=== PATIENT | male | born 1975 | race African-American/Black ===

== ENCOUNTER 2017-01-12 04:46 | Emergency (ER) | payer OTHER ==
[~2017-01-12] VITALS: Ht 175.3 cm; Wt 76.2 kg
[~2017-01-12 04:46] MED LIST: AMIKACIN S500 MG/2 M IJ; BACLOFEN10 MG ORAL; CIPRO500 MG PO; CIPROFLOXACIN500 M2 ORAL; COLACE100 MG ORAL; COUMADIN1 MG ORAL; DIFLUCAN100 MG ORAL; GABAPENTIN100 MG ORAL; GABAPENTIN300 MG ORAL; HYDROCODON-ACE1 EA15 ORAL; HYDROCODON-ACE1 EAC1 PO; HYTRIN1 MG PO; HYTRIN10 MG PO; KEFLEX500 MG ORAL; LEVAQUIN500 MG ORAL; LEVOFLOXACIN750 MG ORAL; LIORESAL20 MG ORAL; MACROBID100 MG ORAL; MACRODANTIN100 MG ORAL; METOCLOPRAMIDE H5 M1 ORAL; MIRALAX17 GM ORAL; MUCINEX600 MG PO; NEURONTIN600 MG ORAL; NITROFURANTOIN100 M2 ORAL; NORCO 5-325 TA1 EACH ORAL; REGLAN10 MG PO; SENNO8.6 MG ORAL; TERAZOSIN HCL1 MG ORAL; TIZANIDINE HCL4 MG ORAL; TIZANIDINE HCL4 MG PO; TRAMADOL HCL50 MG ORAL; VENLAFAXINE HCL25 MG ORAL; ZOFRAN4 M1 ORAL; ZOFRAN4 M3 ORAL; ZOFRAN4 MG ORAL
[2017-01-12 05:06] VITALS: BP 114/73
[2017-01-12] MEDS ORDERED: HYDROmorphone 1mg/ml Carpuject IVP ONE (05:15)
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
[2017-01-12 06:02] LABS: BASOPHILS % (AUTO) 0.6 % (0.0-2.0); EOSINOPHILS % (AUTO) 1.4 % (0.0-3.0); LYMPHOCYTES % (AUTO) 16.2 % (20.0-45.0); MEAN CORPUSCULAR HEMOGLOBIN 26.6 PG (27.0-31.0); MEAN CORPUSCULAR HGB CONC 31.6 G/DL (32.0-36.0); MEAN CORPUSCULAR VOLUME 84 FL (80-99); MEAN PLATELET VOLUME 10.4 FL (6.5-10.1); MONOCYTES % (AUTO) 5.4 % (1.0-10.0); NEUTROPHILS % (AUTO) 76.4 % (45.0-75.0); PLATELET COUNT 170 K/UL (150-450); RED BLOOD COUNT 5.27 M/UL (4.70-6.10); RED CELL DISTRIBUTION WIDTH 12.5 % (11.6-14.8); WHITE BLOOD COUNT 10.4 K/UL (4.8-10.8)
[2017-01-12 06:17] LABS: APPEARANCE,URINE CLEAR; KETONES,URINE NEGATIVE (NEGATIVE); LEUKOCYTE ESTERASE ,URINE 3+ (NEGATIVE); NITRITE,URINE POSITIVE (NEGATIVE); PH,URINE 8 (4.5-8.0); PROTEIN,URINE NEGATIVE (NEGATIVE); UROBILINOGEN,URINE 1 MG/DL (0.0-1.0)
[2017-01-12 06:28] LABS: ANION GAP 15 (5-15); CALCIUM 9.2 mg/dL (8.6-10.2); CARBON DIOXIDE 27 mEQ/L (20-30); CHLORIDE 96 mEQ/L (98-107); CREATININE 0.6 mg/dL (0.7-1.2); GLOMERULAR FILTRATION RATE > 60 mL/min (>60); HEMOLYSIS 7; POTASSIUM 4.1 mEQ/L (3.4-4.9); SODIUM 138 mEQ/L (135-145)
[2017-01-12] MEDS ORDERED: Piperacillin/Tazobactam 3.375 GM in NS 110 ML IVPB ONE (06:30)
[2017-01-12] MEDS ORDERED: LEVAQUIN500 MG ORAL (06:30)
[2017-01-12] MEDS ORDERED: Zosyn 3.375gm inj ONE (06:32)
[2017-01-12 06:53] LABS: BACTERIA,URINE FEW /HPF; SQUAMOUS EPITHELIAL CELL,UR OCCASIONAL /LPF (NONE/OCC); WBC,URINE 15-20 /HPF (0 - 0)
[2017-01-12 07:11] VITALS: BP 96/59
[2017-01-12 07:43] VITALS: BP 141/80
--- NOTE | 2017-01-17 21:50 | Diagnostic Imaging Report ---
APPROVED REPORT CPT Code: 34505 Present Symptoms Lower Extremity Pain: Right RIGHT LEG: Venous imaging reveals a patent deep venous system. There is no evidence of thrombus within the femoral, popliteal or tibial segments. Doppler indicates normal spontaneous flow within these segments.
== END 2017-01-12 07:46 | disposition home or self-care (01) ==
LOC: EDBD 04:46 → EDUNIT# 04:46 → EMR 06:30
DX: N39.0 Urinary tract infection, site not specified (principal); M79.604 Pain in right leg; G82.50 Quadriplegia, unspecified; Z86.718 Personal history of other venous thrombosis and embolism
CPT/HCPCS: 36415; 80048; 81001; 85025; 87086; 87181; 93971; 96374; 96375; 99284; J1170; J2543

== ENCOUNTER 2017-02-05 06:48 | Emergency (ER) | payer OTHER ==
[~2017-02-05] VITALS: Ht 177.8 cm; Wt 72.6 kg
[2017-02-05 07:08] VITALS: BP 95/63
[2017-02-05 07:50] VITALS: BP 109/64
[2017-02-05 08:12] LABS: APPEARANCE,URINE CLEAR; KETONES,URINE 3+ (NEGATIVE); LEUKOCYTE ESTERASE ,URINE 3+ (NEGATIVE); NITRITE,URINE POSITIVE (NEGATIVE); PH,URINE 7 (4.5-8.0); PROTEIN,URINE NEGATIVE (NEGATIVE); UROBILINOGEN,URINE 4 MG/DL (0.0-1.0)
[2017-02-05 08:26] LABS: BACTERIA,URINE MODERATE /HPF; RBC,URINE 0-2 /HPF (0 - 0); SQUAMOUS EPITHELIAL CELL,UR OCCASIONAL /LPF (NONE/OCC)
[2017-02-05] MEDS ORDERED: CIPROFLOXACIN500 M2 ORAL (08:35)
--- NOTE | 2017-02-05 08:40 | Emergency Room Report ---
History of Present Illness General Chief Complaint: General Complaint Source: Patient Present Illness HPI 41 YOM known paraplegia from [facility] presents with dysuria since yesterday. Has condom cath in place, no indwelling Raymundo. Per EMR, frequent visits here for recurrent UTI. Last was in January. C/o mild suprapubic discomfort. Denies nausea/vomiting, diarrhea, fever/chills. States has schedueld followup upcoming for "specialist" to "look at my bladder." Allergies: Coded Allergies: No Known Allergies (Unverified , 05/05/13) Patient History Past Medical History: other - Recurrent UTI Past Surgical History: other - Paraplegia Pertinent Family History: none Social History: Denies: alcohol use, drug use, smoking Immunizations: UTD Reviewed Nursing Documentation: PMH: Agreed, PSxH: Agreed Nursing Documentation-PMH Hx Cardiac Problems: No Hx Hypertension: No Hx Pacemaker: No Hx Asthma: No Hx COPD: No Hx Diabetes: No Hx Cancer: No Hx Gastrointestinal Problems: No Hx Dialysis: No History Of Psychiatric Problem: No Hx Cerebrovascular Accident: No Hx Seizures: No Hx Paralysis: Yes - quadriplegic Hx Peripheral Neuropathy: Yes Review of Systems All Other Systems: negative except mentioned in HPI Physical Exam Vital Signs Date Time Temp Pulse Resp B/P Pulse Ox O2 Delivery O2 Flow Rate FiO2 02/05/17 06:49 98.1 98 16 102/60 99 Room Air Sp02 EP Interpretation: reviewed, normal General Appearance: normal inspection, well appearing, no apparent distress, alert, GCS 15, non-toxic Head: normocephalic, atraumatic Eyes: bilateral eye EOMI, bilateral eye PERRL ENT: normal ENT inspection, hearing grossly normal, normal voice Neck: normal inspection, full range of motion, supple, no bony tend Respiratory: normal inspection, lungs clear, normal breath sounds, no respiratory distress, no retraction, no wheezing Cardiovascular #1: regular rate, rhythm, no edema Gastrointestinal: normal inspection, normal bowel sounds, soft, no guarding, no hernia, other - Mild suprapubic ttp Genitourinary: no CVA tenderness Musculoskeletal: normal inspection, back normal, normal range of motion, Felix' s Sign negative Neurologic: normal inspection, alert, oriented x3, 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 Initial dose Cipro given here PO with Rx for 13 more tablets VSS. Afebrile. No signs/symptoms of systemic infection requiring additional laboratory/imaging workup or admission at this time DC back to [facility] Last Vital Signs Date Time Temp Pulse Resp B/P Pulse Ox O2 Delivery O2 Flow Rate FiO2 02/05/17 07:50 97.0 55 21 109/64 97 Room Air Status: improved Disposition: XFER [facility] Condition: Improved Scripts Ciprofloxacin Hcl* (CIPROFLOXACIN HCL*) 500 Mg Tablet 500 MG ORAL Q12H for 7 Days, #13 TAB 0 Refills Prov: RUBEN CARCAMO M.D. 02/05/17 Referrals: NON PHYSICIAN (PCP) Patient Instructions: Dysuria Additional Instructions: - Take all the Antibiotics, twice daily for 7 days until finished (Ciprofloxacin ) - First dose given in ER at 830am. Take next at 830pm and then twice daily. RUBEN CARCAMO M.D. Feb 05, 2017 08:40
[2017-02-05] MEDS ORDERED: Ciprofloxacin 500mg tab ORAL ONE (08:45)
[2017-02-05 10:34] VITALS: BP 108/68
== END 2017-02-05 11:30 ==
LOC: EDBD 06:48 → EMR 07:20
DX: N30.01 Acute cystitis with hematuria (principal); G82.50 Quadriplegia, unspecified; G62.9 Polyneuropathy, unspecified
CPT/HCPCS: 81003; 87086; 87181; 96372; 99283; J2405

== ENCOUNTER 2017-09-07 18:41 | Inpatient (IN) | payer OTHER ==
[~2017-09-07] VITALS: Ht 177.8 cm; Wt 72.6 kg
[2017-09-07] MEDS ORDERED: Acetaminophen 500mg (ES) tab ORAL ONE (19:00)
[2017-09-07 19:30] LABS: LYMPHOCYTES % (AUTO) 19.5 % (20.0-45.0); MEAN CORPUSCULAR HEMOGLOBIN 26.4 PG (27.0-31.0); MEAN CORPUSCULAR HGB CONC 29.9 G/DL (32.0-36.0); MEAN CORPUSCULAR VOLUME 88 FL (80-99); MEAN PLATELET VOLUME 9.2 FL (6.5-10.1); MONOCYTES % (AUTO) 5.8 % (1.0-10.0); NEUTROPHILS % (AUTO) 72.7 % (45.0-75.0); PLATELET COUNT 174 K/UL (150-450); RED BLOOD COUNT 5.71 M/UL (4.70-6.10); RED CELL DISTRIBUTION WIDTH 12.8 % (11.6-14.8); WHITE BLOOD COUNT 7.4 K/UL (4.8-10.8)
[2017-09-07 19:42] LABS: APPEARANCE,URINE CLEAR; KETONES,URINE 2+ (NEGATIVE); LEUKOCYTE ESTERASE ,URINE 2+ (NEGATIVE); NITRITE,URINE POSITIVE (NEGATIVE); PH,URINE 7 (4.5-8.0); PROTEIN,URINE NEGATIVE (NEGATIVE); UROBILINOGEN,URINE 1 MG/DL (0.0-1.0)
[2017-09-07 20:00] LABS: PROTHROMBIN TIME 10.8 SEC (9.30-11.50)
[2017-09-07 20:07] LABS: REFLEX LACTIC ACID YES OR NO YES
[2017-09-07 20:08] LABS: RBC,URINE 0-2 /HPF (0 - 0); SQUAMOUS EPITHELIAL CELL,UR OCCASIONAL /LPF (NONE/OCC); WBC,URINE 0-2 /HPF (0 - 0)
[2017-09-07 20:09] LABS: BACTERIA,URINE OCCASIONAL /HPF
[2017-09-07 20:14] LABS: ALANINE AMINOTRANSFERASE 14 U/L (12-78); ANION GAP 13 (5-15); ASPARTATE AMINO TRANSFERASE 13 U/L (15-37); CALCIUM 9.5 MG/DL (8.5-10.1); CARBON DIOXIDE 28 MMOL/L (21-32); CHLORIDE 101 MMOL/L (98-107); CREATININE 0.7 MG/DL (0.55-1.00); GLOMERULAR FILTRATION RATE > 60 mL/min (>60); POTASSIUM 3.6 MMOL/L (3.5-5.1); SODIUM 138 MMOL/L (136-145); TOTAL PROTEIN 8.4 G/DL (6.4-8.2)
[2017-09-07] MEDS ORDERED: Cefepime 1gm vial ONE (20:43)
[2017-09-07] MEDS ORDERED: Morphine Sulfate 2mg/ml Inj IVP ONE (20:45)
[2017-09-07] MEDS ORDERED: Cefepime HCl 1 GM in D5W 55 ML IVPB ONE (20:45)
[2017-09-07 21:39] VITALS: BP 91/58
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
[2017-09-07] MEDS ORDERED: Norco 10mg/325mg tab ORAL PRN (22:15)
[2017-09-07 22:42] VITALS: BP 105/65
[2017-09-08] MEDS: Morphine Sulfate 2mg/ml Inj IVP PRN ×4 (00:01→21:26)
[2017-09-08 04:00] VITALS: BP 122/78
[2017-09-08 06:47] LABS: BASOPHILS % (AUTO) 0.6 % (0.0-2.0); EOSINOPHILS % (AUTO) 1.6 % (0.0-3.0); LYMPHOCYTES % (AUTO) 36.3 % (20.0-45.0); MEAN CORPUSCULAR HEMOGLOBIN 29.7 PG (27.0-31.0); MEAN CORPUSCULAR HGB CONC 33.9 G/DL (32.0-36.0); MEAN CORPUSCULAR VOLUME 88 FL (80-99); MEAN PLATELET VOLUME 9.8 FL (6.5-10.1); MONOCYTES % (AUTO) 8.6 % (1.0-10.0); NEUTROPHILS % (AUTO) 52.9 % (45.0-75.0); PLATELET COUNT 145 K/UL (150-450); RED BLOOD COUNT 4.29 M/UL (4.70-6.10); RED CELL DISTRIBUTION WIDTH 12.7 % (11.6-14.8)
[2017-09-08 07:05] LABS: ANION GAP 9 (5-15); CALCIUM 7.9 MG/DL (8.5-10.1); CARBON DIOXIDE 24 MMOL/L (21-32); CHLORIDE 105 MMOL/L (98-107); CREATININE 0.5 MG/DL (0.55-1.30); GLOMERULAR FILTRATION RATE > 60 mL/min (>60); POTASSIUM 3.5 MMOL/L (3.5-5.1); SODIUM 138 MMOL/L (136-145)
[2017-09-08 08:00] VITALS: BP 122/76
[2017-09-08] MEDS: Heparin 5000 units/ml inj SUBQ SCH ×2 (08:25→20:49)
[2017-09-08] MEDS: Venlafaxine 25mg tab ORAL SCH ×3 (08:31→18:08)
--- NOTE | 2017-09-08 10:24 | Diagnostic Imaging Report ---
Indication: Dyspnea Comparison: 08/11/15 A single view chest radiograph was obtained. Findings: No definite infiltrate identified. Mild cardiomegaly is present. The bones are osteopenic. No pleural effusions are seen. Impression: No acute disease
--- NOTE | 2017-09-08 10:24 | Diagnostic Imaging Report ---
Indication: Abdominal pain Comparison: 08/11/15 Single view of the abdomen obtained Findings: Bowel gas pattern is nonspecific. No mass, ectopic calcifications, or abnormal gas collections are identified. The bones are unremarkable. There is an IVC filter present. There is a low pelvic stent. Impression: No acute findings. No significant change.
[2017-09-08 12:00] VITALS: BP 122/69
[2017-09-08 16:15] VITALS: BP 134/73
--- NOTE | 2017-09-08 16:52 | Cardiac Electrophysiology PN ---
Subjective Subjective [id number] Objective Last 24 Hour Vital Signs Date Time Temp Pulse Resp B/P (MAP) Pulse Ox O2 Delivery O2 Flow Rate FiO2 09/08/17 12:00 97.9 64 18 122/69 97 Room Air 09/08/17 08:00 97.5 63 18 122/76 Room Air 09/08/17 04:00 97.3 76 21 122/78 100 Room Air 09/07/17 22:43 97.9 53 16 91/58 97 Room Air 09/07/17 22:42 97.9 60 18 105/65 97 Room Air 09/07/17 22:14 97.9 09/07/17 21:40 53 16 Room Air 09/07/17 21:39 97.9 53 16 91/58 97 Room Air 09/07/17 21:11 97.9 09/07/17 18:44 97.9 74 20 143/70 97 Room Air Intake and Output 09/08/17 09/09/17 19:00 07:00 Intake Total 540 ml Balance 540 ml Intake Oral 240 ml IV Total 300 ml Laboratory Tests Test 09/07/17 19:00 09/07/17 19:05 09/07/17 21:56 09/08/17 04:35 Urine Color Yellow Urine Appearance Clear Urine pH 7 (4.5-8.0) Urine Specific [place] 1.005 (1.005-1.035) Urine Protein Negative (NEGATIVE) Urine Glucose (UA) Negative (NEGATIVE) Urine Ketones 2+ (NEGATIVE) H Urine Occult Blood Negative (NEGATIVE) Urine Nitrite Positive (NEGATIVE) H Urine Bilirubin Negative (NEGATIVE) Urine Urobilinogen 1 MG/DL (0.0-1.0) H Urine Leukocyte Esterase 2+ (NEGATIVE) H Urine RBC 0-2 /HPF (0 - 0) H Urine WBC 0-2 /HPF (0 - 0) Urine Squamous Epithelial Cells Occasional /LPF Urine Bacteria Occasional /HPF (NONE) Urine Opiates Screen Negative (NEGATIVE) Urine Barbiturates Screen Negative (NEGATIVE) Phencyclidine (PCP) Screen Negative (NEGATIVE) Urine Amphetamines Screen Negative (NEGATIVE) Urine Benzodiazepines Screen Negative (NEGATIVE) Urine Cocaine Screen Negative (NEGATIVE) Urine Marijuana (THC) Screen Positive (NEGATIVE) H White Blood Count 7.4 K/UL (4.8-10.8) 6.0 K/UL (4.8-10.8) Red Blood Count 5.71 M/UL (4.70-6.10) 4.29 M/UL (4.70-6.10) L Hemoglobin 15.1 G/DL (14.2-18.0) 12.7 G/DL (14.2-18.0) L Hematocrit 50.4 % (42.0-52.0) 37.6 % (42.0-52.0) L Mean Corpuscular Volume 88 FL (80-99) 88 FL (80-99) Mean Corpuscular Hemoglobin 26.4 PG (27.0-31.0) L 29.7 PG (27.0-31.0) Mean Corpuscular Hemoglobin Concent 29.9 G/DL (32.0-36.0) L 33.9 G/DL (32.0-36.0) Red Cell Distribution Width 12.8 % (11.6-14.8) 12.7 % (11.6-14.8) Platelet Count 174 K/UL (150-450) 145 K/UL (150-450) L Mean Platelet Volume 9.2 FL (6.5-10.1) 9.8 FL (6.5-10.1) Neutrophils (%) (Auto) 72.7 % (45.0-75.0) 52.9 % (45.0-75.0) Lymphocytes (%) (Auto) 19.5 % (20.0-45.0) L 36.3 % (20.0-45.0) Monocytes (%) (Auto) 5.8 % (1.0-10.0) 8.6 % (1.0-10.0) Eosinophils (%) (Auto) 1.0 % (0.0-3.0) 1.6 % (0.0-3.0) Basophils (%) (Auto) 1.0 % (0.0-2.0) 0.6 % (0.0-2.0) Prothrombin Time 10.8 SEC (9.30-11.50) Prothromb Time International Ratio 1.0 (0.9-1.1) Activated Partial Thromboplast Time 30 SEC (23-33) Sodium Level 138 MMOL/L (136-145) 138 MMOL/L (136-145) Potassium Level 3.6 MMOL/L (3.5-5.1) 3.5 MMOL/L (3.5-5.1) Chloride Level 101 MMOL/L (98-107) 105 MMOL/L (98-107) Carbon Dioxide Level 28 MMOL/L (21-32) 24 MMOL/L (21-32) Anion Gap 13 (5-15) 9 (5-15) Blood Urea Nitrogen 6 mg/dL (7-18) L 5 mg/dL (7-18) L Creatinine 0.7 MG/DL (0.55-1.00) 0.5 MG/DL (0.55-1.30) L Estimat Glomerular Filtration Rate > 60 mL/min (>60) > 60 mL/min (>60) Glucose Level 100 MG/DL (74-106) 80 MG/DL (74-106) Lactic Acid Level 2.30 mmol/L (0.66-2.22) H 1.30 mmol/L (0.66-2.22) Calcium Level 9.5 MG/DL (8.5-10.1) 7.9 MG/DL (8.5-10.1) L Total Bilirubin 0.6 MG/DL (0.2-1.0) Aspartate Amino Transf (AST/SGOT) 13 U/L (15-37) L Alanine Aminotransferase (ALT/SGPT) 14 U/L (12-78) Alkaline Phosphatase 82 U/L (46-116) Total Creatine Kinase 155 U/L (26-308) Troponin I 0.028 ng/mL (0.000-0.056) Pro-B-Type Natriuretic Peptide 37 (0-125) Total Protein 8.4 G/DL (6.4-8.2) H Albumin 4.2 G/DL (3.4-5.0) Globulin 4.2 g/dL Albumin/Globulin Ratio 1.0 (1.0-2.7) ROB AHN Sep 08, 2017 16:52
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
[2017-09-08 20:00] VITALS: BP 128/75
[2017-09-08] MEDS: Terazosin 1mg cap ORAL SCH (20:49)
[2017-09-09] VITALS: BP 125/76
[2017-09-09] MEDS: Morphine Sulfate 2mg/ml Inj IVP PRN ×3 (02:07→18:33)
[2017-09-09 04:00] VITALS: BP 112/63
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
[2017-09-09 07:12] LABS: BASOPHILS % (AUTO) 0.4 % (0.0-2.0); EOSINOPHILS % (AUTO) 0.3 % (0.0-3.0); LYMPHOCYTES % (AUTO) 18.7 % (20.0-45.0); MEAN CORPUSCULAR HEMOGLOBIN 28.9 PG (27.0-31.0); MEAN CORPUSCULAR HGB CONC 33.3 G/DL (32.0-36.0); MEAN CORPUSCULAR VOLUME 87 FL (80-99); MEAN PLATELET VOLUME 9.4 FL (6.5-10.1); MONOCYTES % (AUTO) 5.6 % (1.0-10.0); NEUTROPHILS % (AUTO) 75.1 % (45.0-75.0); PLATELET COUNT 158 K/UL (150-450); RED BLOOD COUNT 4.72 M/UL (4.70-6.10); RED CELL DISTRIBUTION WIDTH 12.7 % (11.6-14.8); WHITE BLOOD COUNT 8.6 K/UL (4.8-10.8)
[2017-09-09 07:42] LABS: ANION GAP 15 (5-15); CALCIUM 8.7 MG/DL (8.5-10.1); CARBON DIOXIDE 19 MMOL/L (21-32); CHLORIDE 103 MMOL/L (98-107); CHOLESTEROL 135 MG/DL (< 200); CHOLESTEROL/HDL RATIO 3.3 (3.3-4.4); CREATININE 0.7 MG/DL (0.55-1.30); GLOMERULAR FILTRATION RATE > 60 mL/min (>60); POTASSIUM 3.6 MMOL/L (3.5-5.1); SODIUM 137 MMOL/L (136-145)
[2017-09-09 08:00] VITALS: BP 109/61
--- NOTE | 2017-09-09 08:09 | Cardiology Report ---
APPROVED REPORT EKG Measurement Heart [id number] OR [id number] Normal sinus rhythm Normal ECG
[2017-09-09] MEDS: Venlafaxine 25mg tab ORAL SCH ×3 (09:00→17:59)
[2017-09-09] MEDS: Heparin 5000 units/ml inj SUBQ SCH ×2 (09:00→21:00)
[2017-09-09 12:00] VITALS: BP 120/64
--- NOTE | 2017-09-09 13:05 | Infectious Diseases Prog Note ---
Assessment/Plan Problems: (1) Gram-positive cocci bacteremia Assessment & Plan: source? will start vancomycin empirically pending culture results, will repeat blood culture to confirm clearance (2) UTI (urinary tract infection) Assessment & Plan: will start cefepime empirically pending urine culture results (3) Chest pain Assessment & Plan: no evidence of lung infiltrates , or effusion, rule out cardiac etiology (4) Paraplegia Subjective Allergies: Coded Allergies: No Known Allergies (Unverified , 05/05/13) Objective Vital Signs Last 24 Hour Vital Signs Date Time Temp Pulse Resp B/P (MAP) Pulse Ox O2 Delivery O2 Flow Rate FiO2 09/09/17 12:00 98.2 66 20 120/64 100 Room Air 09/09/17 08:00 54 16 109/61 100 Room Air 09/09/17 04:00 99.0 56 20 112/63 100 Room Air 09/09/17 00:00 97.9 65 20 125/76 100 Room Air 09/08/17 20:00 98.6 66 20 128/75 100 Room Air 09/08/17 16:15 97.6 74 21 134/73 97 Room Air Height (Feet): 5 Height (Inches): 10.00 Weight (Pounds): 160 Microbiology Date/Time Source Procedure Growth Status 09/07/17 19:05 Blood Blood Culture - Preliminary Resulted 09/07/17 19:00 Blood Blood Culture - Preliminary Resulted 09/08/17 18:25 Urine,Clean Catch Urine Culture - Preliminary Resulted Laboratory Tests Test 09/09/17 06:30 White Blood Count 8.6 K/UL (4.8-10.8) Red Blood Count 4.72 M/UL (4.70-6.10) Hemoglobin 13.6 G/DL (14.2-18.0) L Hematocrit 40.9 % (42.0-52.0) L Mean Corpuscular Volume 87 FL (80-99) Mean Corpuscular Hemoglobin 28.9 PG (27.0-31.0) Mean Corpuscular Hemoglobin Concent 33.3 G/DL (32.0-36.0) Red Cell Distribution Width 12.7 % (11.6-14.8) Platelet Count 158 K/UL (150-450) Mean Platelet Volume 9.4 FL (6.5-10.1) Neutrophils (%) (Auto) 75.1 % (45.0-75.0) H Lymphocytes (%) (Auto) 18.7 % (20.0-45.0) L Monocytes (%) (Auto) 5.6 % (1.0-10.0) Eosinophils (%) (Auto) 0.3 % (0.0-3.0) Basophils (%) (Auto) 0.4 % (0.0-2.0) Sodium Level 137 MMOL/L (136-145) Potassium Level 3.6 MMOL/L (3.5-5.1) Chloride Level 103 MMOL/L (98-107) Carbon Dioxide Level 19 MMOL/L (21-32) L Anion Gap 15 (5-15) Blood Urea Nitrogen 4 mg/dL (7-18) L Creatinine 0.7 MG/DL (0.55-1.30) Estimat Glomerular Filtration Rate > 60 mL/min (>60) Glucose Level 84 MG/DL (74-106) Calcium Level 8.7 MG/DL (8.5-10.1) Troponin I 0.034 ng/mL (0.000-0.056) Pro-B-Type Natriuretic Peptide 521 (0-125) H Triglycerides Level 40 MG/DL (0-200) Cholesterol Level 135 MG/DL (< 200) LDL Cholesterol 93 mg/dL (<100) HDL Cholesterol 41 MG/DL (40-60) Cholesterol/HDL Ratio 3.3 (3.3-4.4) Current Medications Medications (Trade) Dose Ordered Sig/Lindsey Route PRN Reason Start Time Stop Time Status Last Admin Dose Admin Acetaminophen (Tylenol) 650 mg Q4H PRN ORAL Mild Pain (Pain Scale 1-3) 09/07/17 22:15 10/07/17 22:14 Acetaminophen/ Hydrocodone Bitart ([place] 10/325) 1 ea Q4H PRN ORAL Moderate Pain (Pain Scale 4-6) 09/07/17 22:15 09/14/17 22:14 Baclofen (Lioresal) 10 mg THREE TIMES A DAY ORAL 09/08/17 09:00 10/08/17 08:59 09/08/17 18:08 Dextrose (Dextrose 50%) STAT PRN IV Hypoglycemia 09/07/17 22:15 10/07/17 22:14 Gabapentin (Neurontin) 100 mg THREE TIMES A DAY ORAL 09/08/17 09:00 10/08/17 08:59 09/08/17 18:07 Heparin Sodium (Porcine) (Heparin 5000 units/ml) 5,000 units EVERY 12 HOURS SUBQ 09/08/17 09:00 10/08/17 08:59 Metoclopramide HCl (Reglan) 5 mg EVERY 6 HOURS ORAL 09/08/17 00:00 10/08/17 00:00 09/09/17 06:25 Morphine Sulfate (Morphine Sulfate) 2 mg Q4H PRN IVP Severe Pain (Pain Scale 7-10) 09/07/17 22:15 09/14/17 22:14 09/09/17 06:25 Ondansetron HCl (Zofran) 4 mg Q6H PRN IVP Nausea & Vomiting 09/07/17 22:15 10/07/17 22:14 09/08/17 21:26 Sodium Chloride 1,000 ml @ 100 mls/hr Q10H IV 09/08/17 11:00 10/08/17 10:59 09/09/17 06:31 Terazosin HCl (Hytrin) 1 mg BEDTIME ORAL 09/08/17 21:00 10/08/17 20:59 Tizanidine HCl (Zanaflex) 4 mg THREE TIMES A DAY ORAL 09/08/17 09:00 10/08/17 08:59 09/08/17 18:08 Venlafaxine HCl (Effexor) 25 mg THREE TIMES A DAY ORAL 09/08/17 09:00 10/08/17 08:59 09/08/17 18:08 Stephanie Cannon M.D. Sep 09, 2017 13:05
[2017-09-09] MEDS: Cefepime HCl 1 GM in D5W 55 ML IVPB SCH (14:34)
[2017-09-09 16:15] VITALS: BP 136/71
[2017-09-09] MEDS: Vancomycin 1gm/D5W 275ml IVPB SCH ×4 (16:31→23:12)
--- NOTE | 2017-09-09 17:25 | Cardiology Report ---
APPROVED REPORT EXAM: Two-dimensional and M-mode echocardiogram with Doppler and color Doppler. INDICATION Chest Pain M-Mode DIMENSIONS IVSd1.5 (0.7-1.1cm)Left Atrium (MM)2.9 (1.6-4.0cm) LVDd4.0 (3.5-5.6cm)Aortic Root3.2 (2.0-3.7cm) PWd2.0 (0.7-1.1cm)Aortic Cusp Exc.2.0 (1.5-2.0cm) LVDs2.3 (2.5-4.0cm) PWs2.4 cm Technically difficult study due to poor acoustical windows. Normal left ventricular chamber size, systolic function and wall motion. Left ventricular ejection fraction estimated to be 55-60%. No evidence of left ventricular hypertrophy. No evidence of pericardial or pleural effusion. All other cardiac chamber sizes are within normal limits. Focal aortic valve sclerosis with adequate cusp excursion. Normal mitral valve leaflets with normal excursion. Normal mitral annulus and aortic root. Pulmonic valve is well visualized. Normal tricuspid valve structure. IVC is not obtainable. A color flow and spectral Doppler study was performed and revealed: No aortic regurgitation. Trace mitral regurgitation. Normal mitral diastolic function. No tricuspid regurgitation.
--- NOTE | 2017-09-09 18:07 | Cardiac Electrophysiology PN ---
Assessment/Plan Assessment/Plan 1. Chest pain. Ruled out for myocardial infarction EKG normal and echocardiogram showed EF 60%. Could not do nuclear stress test as couldnt raise his arms. Didn't reach 85% of PMHR on Dobutamine and developed LBBB. If gets recurrent chest pain should consider Coronary CT angio as out patient. 2. Quadriplegia. 3. Urinary tract infection, on antibiotics. JESICA Diaz who did the stress test. Subjective Subjective Comfortable in NAD. Had Dobutamine echo today. Objective Last 24 Hour Vital Signs Date Time Temp Pulse Resp B/P (MAP) Pulse Ox O2 Delivery O2 Flow Rate FiO2 09/09/17 16:15 97.3 71 20 136/71 97 Room Air 09/09/17 12:00 98.2 66 20 120/64 100 Room Air 09/09/17 08:00 54 16 109/61 100 Room Air 09/09/17 04:00 99.0 56 20 112/63 100 Room Air 09/09/17 00:00 97.9 65 20 125/76 100 Room Air 09/08/17 20:00 98.6 66 20 128/75 100 Room Air Intake and Output 09/09/17 09/10/17 19:00 07:00 Intake Total 810 ml Output Total 1100 ml Balance -290 ml IV Total 810 ml Output Urine Total 1100 ml Laboratory Tests Test 09/09/17 06:20 09/09/17 06:30 Erythrocyte Sedimentation Rate 3 MM/HR (0-15) C-Reactive Protein, Quantitative 0.0 mg/dL (0.00-0.90) White Blood Count 8.6 K/UL (4.8-10.8) Red Blood Count 4.72 M/UL (4.70-6.10) Hemoglobin 13.6 G/DL (14.2-18.0) L Hematocrit 40.9 % (42.0-52.0) L Mean Corpuscular Volume 87 FL (80-99) Mean Corpuscular Hemoglobin 28.9 PG (27.0-31.0) Mean Corpuscular Hemoglobin Concent 33.3 G/DL (32.0-36.0) Red Cell Distribution Width 12.7 % (11.6-14.8) Platelet Count 158 K/UL (150-450) Mean Platelet Volume 9.4 FL (6.5-10.1) Neutrophils (%) (Auto) 75.1 % (45.0-75.0) H Lymphocytes (%) (Auto) 18.7 % (20.0-45.0) L Monocytes (%) (Auto) 5.6 % (1.0-10.0) Eosinophils (%) (Auto) 0.3 % (0.0-3.0) Basophils (%) (Auto) 0.4 % (0.0-2.0) Sodium Level 137 MMOL/L (136-145) Potassium Level 3.6 MMOL/L (3.5-5.1) Chloride Level 103 MMOL/L (98-107) Carbon Dioxide Level 19 MMOL/L (21-32) L Anion Gap 15 (5-15) Blood Urea Nitrogen 4 mg/dL (7-18) L Creatinine 0.7 MG/DL (0.55-1.30) Estimat Glomerular Filtration Rate > 60 mL/min (>60) Glucose Level 84 MG/DL (74-106) Calcium Level 8.7 MG/DL (8.5-10.1) Troponin I 0.034 ng/mL (0.000-0.056) Pro-B-Type Natriuretic Peptide 521 (0-125) H Triglycerides Level 40 MG/DL (0-200) Cholesterol Level 135 MG/DL (< 200) LDL Cholesterol 93 mg/dL (<100) HDL Cholesterol 41 MG/DL (40-60) Cholesterol/HDL Ratio 3.3 (3.3-4.4) Microbiology Date/Time Source Procedure Growth Status 09/07/17 19:05 Blood Blood Culture - Preliminary Resulted 09/07/17 19:00 Blood Blood Culture - Preliminary Resulted 09/08/17 18:25 Urine,Clean Catch Urine Culture - Preliminary Resulted Objective HEAD AND NECK: No JVD. LUNGS: Clear. CARDIOVASCULAR: Regular S1 and S2 with no gallop. ABDOMEN: Soft. EXTREMITIES: Quadriplegia as well as contractions of the right upper and right lower extremity. ROB AHN Sep 09, 2017 18:07
[2017-09-09 20:00] VITALS: BP 137/76
[2017-09-09] MEDS: Terazosin 1mg cap ORAL SCH (21:06)
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
[2017-09-10] VITALS (7 sets, daily range): BP systolic 119–142; BP diastolic 58–92
[2017-09-10] MEDS: Morphine Sulfate 2mg/ml Inj IVP PRN ×3 (02:22→22:12)
[2017-09-10] MEDS: Cefepime HCl 1 GM in D5W 55 ML IVPB SCH ×2 (02:22→14:07)
[2017-09-10] MEDS: Venlafaxine 25mg tab ORAL SCH ×3 (08:26→18:00)
[2017-09-10] MEDS: Vancomycin 1gm/D5W 275ml IVPB SCH ×4 (08:27→16:30)
[2017-09-10] MEDS: Heparin 5000 units/ml inj SUBQ SCH ×2 (09:05→22:04)
--- NOTE | 2017-09-10 13:24 | Cardiac Electrophysiology PN ---
Assessment/Plan Assessment/Plan 1. Chest pain. Ruled out for myocardial infarction EKG normal and echocardiogram showed EF 60%. Could not do nuclear stress test as couldn't raise his arms. Didn't reach 85% of PMHR on Dobutamine and developed LBBB. If gets recurrent chest pain , consider Coronary CT angio 2. Quadriplegia. 3. Urinary tract infection, on antibiotics. JESICA RN Subjective Subjective Comfortable in NAD. No new events Objective Last 24 Hour Vital Signs Date Time Temp Pulse Resp B/P (MAP) Pulse Ox O2 Delivery O2 Flow Rate FiO2 09/10/17 08:00 98.1 65 20 119/79 98 Room Air 09/10/17 04:00 98.2 62 20 132/58 97 Room Air 09/10/17 00:00 97.7 67 20 141/80 96 Room Air 09/09/17 20:00 98.7 67 20 137/76 99 Room Air 09/09/17 16:15 97.3 71 20 136/71 97 Room Air Intake and Output 09/10/17 09/11/17 19:00 07:00 Intake Total 475.000 ml Balance 475.000 ml IV Total 475.000 ml Microbiology Date/Time Source Procedure Growth Status 09/07/17 19:05 Blood Blood Culture - Preliminary Staphylococcus Sp Coag Neg Resulted 09/07/17 19:00 Blood Blood Culture - Preliminary Staphylococcus Sp Coag Neg Resulted 09/08/17 18:25 Urine,Clean Catch Urine Culture - Preliminary Streptococcus Species Resulted Objective HEAD AND NECK: No JVD. LUNGS: Clear. CARDIOVASCULAR: Regular S1 and S2 with no gallop. ABDOMEN: Soft. EXTREMITIES: Quadriplegia and contractions of the right upper and right lower extremity. ROB AHN Sep 10, 2017 13:24
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
--- NOTE | 2017-09-10 17:30 | Infectious Diseases Prog Note ---
Assessment/Plan Problems: (1) Gram-positive cocci bacteremia Assessment & Plan: due to coag negatve staph , source? continue vancomycin empirically pending sensitivity, will repeat blood culture to confirm clearance , TTE didn't show any vegetations (2) UTI (urinary tract infection) Assessment & Plan: with streptococcus spp, on cefepime empirically , will switch to ceftriaxon, pending urine culture results (3) Chest pain Assessment & Plan: no evidence of lung infiltrates , or effusion, rule out cardiac etiology (4) Paraplegia Subjective Constitutional: Reports: no symptoms HEENT: Reports: no symptoms Respiratory: Reports: no symptoms Breasts: Reports: no symptoms Cardiovascular: Reports: no symptoms Gastrointestinal/Abdominal: Reports: no symptoms Genitourinary: Reports: no symptoms Neurologic: Reports: no symptoms Psychiatric: Reports: no symptoms Skin: Reports: no symptoms Endocrine: Reports: no symptoms Allergies: Coded Allergies: No Known Allergies (Unverified , 05/05/13) Objective Vital Signs Last 24 Hour Vital Signs Date Time Temp Pulse Resp B/P (MAP) Pulse Ox O2 Delivery O2 Flow Rate FiO2 09/10/17 16:13 97.8 59 20 130/76 99 Room Air 09/10/17 12:00 98.2 63 20 126/81 97 Room Air 09/10/17 08:00 98.1 65 20 119/79 98 Room Air 09/10/17 04:00 98.2 62 20 132/58 97 Room Air 09/10/17 00:00 97.7 67 20 141/80 96 Room Air 09/09/17 20:00 98.7 67 20 137/76 99 Room Air Height (Feet): 5 Height (Inches): 10.00 Weight (Pounds): 160 General Appearance: WD/WN, no acute distress HEENT: normocephalic, atraumatic, anicteric, mucous membranes moist Respiratory/Chest: chest wall non-tender, lungs clear, normal breath sounds, no respiratory distress Cardiovascular: normal peripheral pulses, normal rate, regular rhythm, no gallop/murmur, no JVD Abdomen: normal bowel sounds, soft, non tender, no organomegaly, non distended , no mass, no scars Extremities: no cyanosis, no clubbing Skin: no rash, no lesions, no ulcers Microbiology Date/Time Source Procedure Growth Status 09/07/17 19:05 Blood Blood Culture - Preliminary Staphylococcus Sp Coag Neg Resulted 09/07/17 19:00 Blood Blood Culture - Preliminary Staphylococcus Sp Coag Neg Resulted 09/08/17 18:25 Urine,Clean Catch Urine Culture - Preliminary Streptococcus Species Resulted Laboratory Tests Test 09/10/17 15:27 Vancomycin Level Trough 16.9 ug/mL (5.0-12.0) H Current Medications Medications (Trade) Dose Ordered Sig/Lindsey Route PRN Reason Start Time Stop Time Status Last Admin Dose Admin Acetaminophen (Tylenol) 650 mg Q4H PRN ORAL Mild Pain (Pain Scale 1-3) 09/07/17 22:15 10/07/17 22:14 Acetaminophen/ Hydrocodone Bitart ([place] 10/325) 1 ea Q4H PRN ORAL Moderate Pain (Pain Scale 4-6) 09/07/17 22:15 09/14/17 22:14 Baclofen (Lioresal) 10 mg THREE TIMES A DAY ORAL 09/08/17 09:00 10/08/17 08:59 09/10/17 12:27 Cefepime HCl 1 gm/ Dextrose 55 ml @ 110 mls/hr Q12H IVPB 09/09/17 14:00 09/16/17 13:59 09/10/17 14:07 Dextrose (Dextrose 50%) STAT PRN IV Hypoglycemia 09/07/17 22:15 10/07/17 22:14 Gabapentin (Neurontin) 100 mg THREE TIMES A DAY ORAL 09/08/17 09:00 10/08/17 08:59 09/10/17 12:27 Heparin Sodium (Porcine) (Heparin 5000 units/ml) 5,000 units EVERY 12 HOURS SUBQ 09/08/17 09:00 10/08/17 08:59 09/10/17 09:05 Magnesium Hydroxide (Mom) 30 ml DAILYPRN PRN ORAL Constipation 09/09/17 19:00 10/09/17 18:59 Metoclopramide HCl (Reglan) 5 mg EVERY 6 HOURS ORAL 09/08/17 00:00 10/08/17 00:00 09/10/17 12:27 Morphine Sulfate (Morphine Sulfate) 2 mg Q4H PRN IVP Severe Pain (Pain Scale 7-10) 09/07/17 22:15 09/14/17 22:14 09/10/17 16:29 Ondansetron HCl (Zofran) 4 mg Q6H PRN IVP Nausea & Vomiting 09/07/17 22:15 10/07/17 22:14 09/10/17 02:22 Sodium Chloride 1,000 ml @ 100 mls/hr Q10H IV 09/08/17 11:00 10/08/17 10:59 09/10/17 06:25 Terazosin HCl (Hytrin) 1 mg BEDTIME ORAL 09/08/17 21:00 10/08/17 20:59 09/09/17 21:06 Tizanidine HCl (Zanaflex) 4 mg THREE TIMES A DAY ORAL 09/08/17 09:00 10/08/17 08:59 09/10/17 12:28 Vancomycin HCl (Vanco rx to dose) 1 ea DAILY PRN MISC Per rx protocol 09/09/17 13:00 10/09/17 12:59 Vancomycin HCl 1 gm/Dextrose 275 ml @ 183.708 mls/hr Q8HR@0000,0800,1600 IVPB 09/09/17 16:00 09/10/17 23:59 09/10/17 16:30 Vancomycin/Sodium Chloride 250 ml @ 166.667 mls/hr Q8HR@0000,0800,1600 IVPB 09/11/17 00:00 09/16/17 00:00 Venlafaxine HCl (Effexor) 25 mg THREE TIMES A DAY ORAL 09/08/17 09:00 10/08/17 08:59 09/10/17 12:27 Stephanie Cannon M.D. Sep 10, 2017 17:30
[2017-09-10] MEDS: Terazosin 1mg cap ORAL SCH (21:58)
[2017-09-10] MEDS: cefTRIAXone 1 GM in D5W 55 ML IVPB SCH (22:05)
[2017-09-10] MEDS: Vancomycin 750mg/NS 250ml 250 ML IVPB SCH (23:34)
[2017-09-11 04:00] VITALS: BP 125/71
[2017-09-11] MEDS: Morphine Sulfate 2mg/ml Inj IVP PRN ×5 (04:06→21:26)
[2017-09-11 08:00] VITALS: BP 130/77
[2017-09-11] MEDS: Venlafaxine 25mg tab ORAL SCH ×4 (08:09→17:31)
[2017-09-11] MEDS: Vancomycin 750mg/NS 250ml 250 ML IVPB SCH ×2 (08:09→17:30)
[2017-09-11] MEDS: Heparin 5000 units/ml inj SUBQ SCH ×2 (08:13→21:28)
[2017-09-11 12:00] VITALS: BP 146/86
--- NOTE | 2017-09-11 15:31 | Infectious Diseases Prog Note ---
Assessment/Plan Problems: (1) Gram-positive cocci bacteremia Assessment & Plan: due to coag negatve staph , source? continue vancomycin empirically pending sensitivity, will repeat blood culture to confirm clearance , TTE didn't show any vegetations, will treat with iv vancomycin for 4 weeks . (2) UTI (urinary tract infection) Assessment & Plan: with enterococcus faecalis sensitive to vancomycin and another gram negative rods, already on vancomycin and ceftriaxon, pending urine culture results, will treat for two weeks (3) Chest pain Assessment & Plan: no evidence of lung infiltrates , or effusion, rule out cardiac etiology, had stress test, cardiology is following (4) Paraplegia Subjective Constitutional: Reports: no symptoms HEENT: Reports: no symptoms Respiratory: Reports: no symptoms Breasts: Reports: no symptoms Cardiovascular: Reports: no symptoms Gastrointestinal/Abdominal: Reports: no symptoms Genitourinary: Reports: no symptoms Neurologic: Reports: no symptoms Psychiatric: Reports: no symptoms Skin: Reports: no symptoms Endocrine: Reports: no symptoms Hematologic: Reports: no symptoms Allergies: Coded Allergies: No Known Allergies (Unverified , 05/05/13) Objective Vital Signs Last 24 Hour Vital Signs Date Time Temp Pulse Resp B/P (MAP) Pulse Ox O2 Delivery O2 Flow Rate FiO2 09/11/17 12:00 98.5 52 20 146/86 97 Room Air 09/11/17 08:00 97.3 61 20 130/77 100 Room Air 09/11/17 04:00 98.1 67 22 125/71 100 Room Air 09/10/17 23:29 98.1 59 20 142/92 98 Room Air 09/10/17 20:00 99.5 66 20 133/81 100 Room Air 09/10/17 16:13 97.8 59 20 130/76 99 Room Air Height (Feet): 5 Height (Inches): 10.00 Weight (Pounds): 160 General Appearance: WD/WN, no acute distress HEENT: normocephalic, atraumatic, anicteric, mucous membranes moist Respiratory/Chest: chest wall non-tender, lungs clear, normal breath sounds, no respiratory distress, no accessory muscle use Cardiovascular: normal peripheral pulses, normal rate, regular rhythm, no gallop/murmur, no JVD Abdomen: normal bowel sounds, soft, non tender, no organomegaly, non distended , no mass, no scars Extremities: no cyanosis, no clubbing Skin: no rash, no lesions, no ulcers Neurologic/Psychiatric: alert, oriented x 3 Microbiology Date/Time Source Procedure Growth Status 09/08/17 18:25 Urine,Clean Catch Urine Culture - Preliminary Enterococcus Faecalis Gram Negative Bacillus 1 Resulted Current Medications Medications (Trade) Dose Ordered Sig/Lindsey Route PRN Reason Start Time Stop Time Status Last Admin Dose Admin Acetaminophen (Tylenol) 650 mg Q4H PRN ORAL Mild Pain (Pain Scale 1-3) 09/07/17 22:15 10/07/17 22:14 Acetaminophen/ Hydrocodone Bitart ([place] 10325) 1 ea Q4H PRN ORAL Moderate Pain (Pain Scale 4-6) 09/07/17 22:15 09/14/17 22:14 Baclofen (Lioresal) 10 mg THREE TIMES A DAY ORAL 09/08/17 09:00 10/08/17 08:59 09/11/17 13:17 Ceftriaxone Sodium 1 gm/ Dextrose 55 ml @ 110 mls/hr Q24H IVPB 09/10/17 22:00 09/17/17 21:59 09/10/17 22:05 Dextrose (Dextrose 50%) STAT PRN IV Hypoglycemia 09/07/17 22:15 10/07/17 22:14 Gabapentin (Neurontin) 100 mg THREE TIMES A DAY ORAL 09/08/17 09:00 10/08/17 08:59 09/11/17 13:17 Heparin Sodium (Porcine) (Heparin 5000 units/ml) 5,000 units EVERY 12 HOURS SUBQ 09/08/17 09:00 10/08/17 08:59 09/11/17 08:13 Magnesium Hydroxide (Mom) 30 ml DAILYPRN PRN ORAL Constipation 09/09/17 19:00 10/09/17 18:59 Metoclopramide HCl (Reglan) 5 mg EVERY 6 HOURS ORAL 09/08/17 00:00 10/08/17 00:00 09/11/17 13:17 Morphine Sulfate (Morphine Sulfate) 2 mg Q4H PRN IVP Severe Pain (Pain Scale 7-10) 09/07/17 22:15 09/14/17 22:14 09/11/17 13:17 Ondansetron HCl (Zofran) 4 mg Q6H PRN IVP Nausea & Vomiting 09/07/17 22:15 10/07/17 22:14 09/11/17 08:09 Sodium Chloride 1,000 ml @ 100 mls/hr Q10H IV 09/08/17 11:00 10/08/17 10:59 09/11/17 06:41 Terazosin HCl (Hytrin) 1 mg BEDTIME ORAL 09/08/17 21:00 10/08/17 20:59 09/10/17 21:58 Tizanidine HCl (Zanaflex) 4 mg THREE TIMES A DAY ORAL 09/08/17 09:00 10/08/17 08:59 09/11/17 13:17 Vancomycin HCl (Vanco rx to dose) 1 ea DAILY PRN MISC Per rx protocol 09/09/17 13:00 10/09/17 12:59 Vancomycin/Sodium Chloride 250 ml @ 166.667 mls/hr Q8HR@0000,0800,1600 IVPB 09/11/17 00:00 09/16/17 00:00 09/11/17 08:09 Venlafaxine HCl (Effexor) 25 mg THREE TIMES A DAY ORAL 09/08/17 09:00 10/08/17 08:59 09/10/17 18:00 Stephanie Cannon M.D. Sep 11, 2017 15:31
[2017-09-11 16:00] VITALS: BP 134/88
--- NOTE | 2017-09-11 16:03 | Cardiac Electrophysiology PN ---
Assessment/Plan Assessment/Plan 1. Chest pain. Ruled out for myocardial infarction EKG normal and echocardiogram showed EF 60%. Could not do nuclear stress test as couldn't raise his arms. Didn't reach 85% of PMHR on Dobutamine and developed LBBB. No further chest pain. If gets recurrent chest pain , consider Coronary CT angio 2. Quadriplegia. 3. Urinary tract infection, on antibiotics. JESICA RN Subjective Subjective Comfortable in NAD. No chest pain or SOB. On IV abx. Objective Last 24 Hour Vital Signs Date Time Temp Pulse Resp B/P (MAP) Pulse Ox O2 Delivery O2 Flow Rate FiO2 09/11/17 12:00 98.5 52 20 146/86 97 Room Air 09/11/17 08:00 97.3 61 20 130/77 100 Room Air 09/11/17 04:00 98.1 67 22 125/71 100 Room Air 09/10/17 23:29 98.1 59 20 142/92 98 Room Air 09/10/17 20:00 99.5 66 20 133/81 100 Room Air 09/10/17 16:13 97.8 59 20 130/76 99 Room Air Microbiology Date/Time Source Procedure Growth Status 09/08/17 18:25 Urine,Clean Catch Urine Culture - Preliminary Enterococcus Faecalis Gram Negative Bacillus 1 Resulted Objective HEAD AND NECK: No JVD. LUNGS: Clear. CARDIOVASCULAR: Regular S1 and S2 with no gallop. ABDOMEN: Soft. EXTREMITIES: Quadriplegia and contractions of the right upper and right lower extremity. ROB AHN Sep 11, 2017 16:03
[2017-09-11 19:51] VITALS: BP 123/74
[2017-09-11] MEDS: cefTRIAXone 1 GM in D5W 55 ML IVPB SCH (21:26)
[2017-09-11] MEDS: Terazosin 1mg cap ORAL SCH (21:26)
[2017-09-12] VITALS: BP 135/66
[2017-09-12] MEDS: Vancomycin 750mg/NS 250ml 250 ML IVPB SCH ×4 (00:16→23:30)
[2017-09-12] MEDS: Morphine Sulfate 2mg/ml Inj IVP PRN ×4 (02:03→18:16)
[2017-09-12 04:00] VITALS: BP 138/76
[2017-09-12 08:59] VITALS: BP 98/62
[2017-09-12] MEDS: Venlafaxine 25mg tab ORAL SCH ×3 (09:00→18:00)
[2017-09-12] MEDS: Heparin 5000 units/ml inj SUBQ SCH ×2 (09:00→20:46)
[2017-09-12 11:15] LABS: BASOPHILS % (AUTO) 0.8 % (0.0-2.0); EOSINOPHILS % (AUTO) 1.6 % (0.0-3.0); LYMPHOCYTES % (AUTO) 28.7 % (20.0-45.0); MEAN CORPUSCULAR HEMOGLOBIN 27.2 PG (27.0-31.0); MEAN CORPUSCULAR HGB CONC 31.7 G/DL (32.0-36.0); MEAN CORPUSCULAR VOLUME 86 FL (80-99); MEAN PLATELET VOLUME 9.2 FL (6.5-10.1); MONOCYTES % (AUTO) 8.6 % (1.0-10.0); NEUTROPHILS % (AUTO) 60.3 % (45.0-75.0); PLATELET COUNT 149 K/UL (150-450); RED BLOOD COUNT 4.82 M/UL (4.70-6.10); RED CELL DISTRIBUTION WIDTH 12.2 % (11.6-14.8); WHITE BLOOD COUNT 6.8 K/UL (4.8-10.8)
[2017-09-12 11:24] LABS: ANION GAP 7 (5-15); CALCIUM 8.6 MG/DL (8.5-10.1); CARBON DIOXIDE 28 MMOL/L (21-32); CHLORIDE 106 MMOL/L (98-107); CREATININE 0.5 MG/DL (0.55-1.30); GLOMERULAR FILTRATION RATE > 60 mL/min (>60); POTASSIUM 3.1 MMOL/L (3.5-5.1); SODIUM 141 MMOL/L (136-145)
[2017-09-12 11:52] VITALS: BP 121/79
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
[2017-09-12 16:01] VITALS: BP 136/79
[2017-09-12] MEDS: Milk of Magnesia 30ml Ud ORAL PRN (18:29)
--- NOTE | 2017-09-12 18:31 | Infectious Diseases Prog Note ---
Assessment/Plan Problems: (1) Gram-positive cocci bacteremia Assessment & Plan: due to coag negatve staph , source? continue vancomycin empirically , will repeat blood culture to confirm clearance, TTE didn't show any vegetations, will treat with iv vancomycin for 4 weeks. (2) UTI (urinary tract infection) Assessment & Plan: with enterococcus faecalis sensitive to vancomycin and another gram negative rods, already on vancomycin and ceftriaxon, pending urine culture results, will treat for two weeks (3) Chest pain Assessment & Plan: no evidence of lung infiltrates , or effusion, rule out cardiac etiology, had stress test, cardiology is following (4) Paraplegia Subjective Constitutional: Reports: no symptoms HEENT: Reports: no symptoms Respiratory: Reports: no symptoms Breasts: Reports: no symptoms Cardiovascular: Reports: no symptoms Gastrointestinal/Abdominal: Reports: no symptoms Genitourinary: Reports: no symptoms Neurologic: Reports: no symptoms Psychiatric: Reports: no symptoms Skin: Reports: no symptoms Endocrine: Reports: no symptoms Hematologic: Reports: no symptoms Musculoskeletal: Reports: no symptoms Allergies: Coded Allergies: No Known Allergies (Unverified , 05/05/13) Objective Vital Signs Last 24 Hour Vital Signs Date Time Temp Pulse Resp B/P (MAP) Pulse Ox O2 Delivery O2 Flow Rate FiO2 09/12/17 16:01 97.8 54 19 136/79 98 Room Air 09/12/17 13:02 98.0 09/12/17 13:02 98.0 09/12/17 13:02 98.0 09/12/17 11:52 98.0 56 20 121/79 99 Room Air 09/12/17 08:59 98.2 66 20 98/62 100 Room Air 09/12/17 04:00 98.2 72 20 138/76 100 Room Air 09/12/17 00:00 98.1 62 18 135/66 95 Room Air 09/11/17 19:51 97.7 65 18 123/74 100 Room Air Height (Feet): 5 Height (Inches): 10.00 Weight (Pounds): 160 General Appearance: WD/WN, no acute distress HEENT: normocephalic, atraumatic, anicteric, mucous membranes moist, PERRL, EOMI, pharynx normal, supple, no JVD Respiratory/Chest: chest wall non-tender, lungs clear, normal breath sounds, no respiratory distress, no accessory muscle use Cardiovascular: normal peripheral pulses, normal rate, regular rhythm, no gallop/murmur, no JVD Abdomen: normal bowel sounds, soft, non tender, no organomegaly, non distended , no mass, no scars Extremities: no cyanosis, no clubbing Skin: no rash, no lesions, no ulcers Neurologic/Psychiatric: alert, oriented x 3 Laboratory Tests Test 09/12/17 10:30 White Blood Count 6.8 K/UL (4.8-10.8) Red Blood Count 4.82 M/UL (4.70-6.10) Hemoglobin 13.1 G/DL (14.2-18.0) L Hematocrit 41.4 % (42.0-52.0) L Mean Corpuscular Volume 86 FL (80-99) Mean Corpuscular Hemoglobin 27.2 PG (27.0-31.0) Mean Corpuscular Hemoglobin Concent 31.7 G/DL (32.0-36.0) L Red Cell Distribution Width 12.2 % (11.6-14.8) Platelet Count 149 K/UL (150-450) L Mean Platelet Volume 9.2 FL (6.5-10.1) Neutrophils (%) (Auto) 60.3 % (45.0-75.0) Lymphocytes (%) (Auto) 28.7 % (20.0-45.0) Monocytes (%) (Auto) 8.6 % (1.0-10.0) Eosinophils (%) (Auto) 1.6 % (0.0-3.0) Basophils (%) (Auto) 0.8 % (0.0-2.0) Sodium Level 141 MMOL/L (136-145) Potassium Level 3.1 MMOL/L (3.5-5.1) L Chloride Level 106 MMOL/L (98-107) Carbon Dioxide Level 28 MMOL/L (21-32) Anion Gap 7 (5-15) Blood Urea Nitrogen 2 mg/dL (7-18) L Creatinine 0.5 MG/DL (0.55-1.30) L Estimat Glomerular Filtration Rate > 60 mL/min (>60) Glucose Level 107 MG/DL (74-106) H Calcium Level 8.6 MG/DL (8.5-10.1) Current Medications Medications (Trade) Dose Ordered Sig/Lindsey Route PRN Reason Start Time Stop Time Status Last Admin Dose Admin Acetaminophen (Tylenol) 650 mg Q4H PRN ORAL Mild Pain (Pain Scale 1-3) 09/07/17 22:15 10/07/17 22:14 Acetaminophen/ Hydrocodone Bitart ([place] 10325) 1 ea Q4H PRN ORAL Moderate Pain (Pain Scale 4-6) 09/07/17 22:15 09/14/17 22:14 Baclofen (Lioresal) 20 mg QID ORAL 09/11/17 21:00 10/11/17 20:59 09/12/17 18:16 Ceftriaxone Sodium 1 gm/ Dextrose 55 ml @ 110 mls/hr Q24H IVPB 09/10/17 22:00 09/17/17 21:59 09/11/17 21:26 Dextrose (Dextrose 50%) STAT PRN IV Hypoglycemia 09/07/17 22:15 10/07/17 22:14 Gabapentin (Neurontin) 100 mg THREE TIMES A DAY ORAL 09/08/17 09:00 10/08/17 08:59 09/12/17 18:16 Heparin Sodium (Porcine) (Heparin 5000 units/ml) 5,000 units EVERY 12 HOURS SUBQ 09/08/17 09:00 10/08/17 08:59 09/11/17 21:28 Magnesium Hydroxide (Mom) 30 ml DAILYPRN PRN ORAL Constipation 09/09/17 19:00 10/09/17 18:59 Metoclopramide HCl (Reglan) 5 mg EVERY 6 HOURS ORAL 09/08/17 00:00 10/08/17 00:00 09/12/17 18:16 Morphine Sulfate (Morphine Sulfate) 2 mg Q4H PRN IVP Severe Pain (Pain Scale 7-10) 09/07/17 22:15 09/14/17 22:14 09/12/17 18:16 Ondansetron HCl (Zofran) 4 mg Q6H PRN IVP Nausea & Vomiting 09/07/17 22:15 10/07/17 22:14 09/12/17 03:44 Sodium Chloride 1,000 ml @ 100 mls/hr Q10H IV 09/08/17 11:00 10/08/17 10:59 09/12/17 16:26 Terazosin HCl (Hytrin) 1 mg BEDTIME ORAL 09/08/17 21:00 10/08/17 20:59 09/11/17 21:26 Tizanidine HCl (Zanaflex) 4 mg THREE TIMES A DAY ORAL 09/08/17 09:00 10/08/17 08:59 09/12/17 18:16 Vancomycin HCl (Vanco rx to dose) 1 ea DAILY PRN MISC Per rx protocol 09/09/17 13:00 10/09/17 12:59 Vancomycin/Sodium Chloride 250 ml @ 166.667 mls/hr Q8HR@0000,0800,1600 IVPB 09/11/17 00:00 09/16/17 00:00 09/12/17 16:25 Venlafaxine HCl (Effexor) 25 mg THREE TIMES A DAY ORAL 09/08/17 09:00 10/08/17 08:59 09/10/17 18:00 Stephanie Cannon M.D. Sep 12, 2017 18:31
--- NOTE | 2017-09-12 19:10 | Cardiac Electrophysiology PN ---
Assessment/Plan Assessment/Plan 1. Chest pain. Ruled out for myocardial infarction EKG normal and echocardiogram showed EF 60%. Could not do nuclear stress test as couldn't raise his arms. Didn't reach 85% of PMHR on Dobutamine and developed LBBB. No further chest pain. If gets recurrent chest pain , Coronary CT angio as out patient 2. Quadriplegia. 3. Urinary tract infection, on antibiotics. JESICA RN Subjective Subjective Comfortable in NAD. No chest pain or SOB. On IV abx.DC planning tomorrow if OK with ID. Objective Last 24 Hour Vital Signs Date Time Temp Pulse Resp B/P (MAP) Pulse Ox O2 Delivery O2 Flow Rate FiO2 09/12/17 18:46 97.8 09/12/17 18:46 97.8 09/12/17 18:46 97.8 09/12/17 16:01 97.8 54 19 136/79 98 Room Air 09/12/17 11:52 98.0 56 20 121/79 99 Room Air 09/12/17 08:59 98.2 66 20 98/62 100 Room Air 09/12/17 04:00 98.2 72 20 138/76 100 Room Air 09/12/17 00:00 98.1 62 18 135/66 95 Room Air 09/11/17 19:51 97.7 65 18 123/74 100 Room Air Intake and Output 09/12/17 09/13/17 19:00 07:00 Intake Total 1660.000 ml Output Total 1200 ml Balance 460.000 ml Intake Oral 460 ml IV Total 1200.000 ml Output Urine Total 1200 ml Laboratory Tests Test 09/12/17 10:30 White Blood Count 6.8 K/UL (4.8-10.8) Red Blood Count 4.82 M/UL (4.70-6.10) Hemoglobin 13.1 G/DL (14.2-18.0) L Hematocrit 41.4 % (42.0-52.0) L Mean Corpuscular Volume 86 FL (80-99) Mean Corpuscular Hemoglobin 27.2 PG (27.0-31.0) Mean Corpuscular Hemoglobin Concent 31.7 G/DL (32.0-36.0) L Red Cell Distribution Width 12.2 % (11.6-14.8) Platelet Count 149 K/UL (150-450) L Mean Platelet Volume 9.2 FL (6.5-10.1) Neutrophils (%) (Auto) 60.3 % (45.0-75.0) Lymphocytes (%) (Auto) 28.7 % (20.0-45.0) Monocytes (%) (Auto) 8.6 % (1.0-10.0) Eosinophils (%) (Auto) 1.6 % (0.0-3.0) Basophils (%) (Auto) 0.8 % (0.0-2.0) Sodium Level 141 MMOL/L (136-145) Potassium Level 3.1 MMOL/L (3.5-5.1) L Chloride Level 106 MMOL/L (98-107) Carbon Dioxide Level 28 MMOL/L (21-32) Anion Gap 7 (5-15) Blood Urea Nitrogen 2 mg/dL (7-18) L Creatinine 0.5 MG/DL (0.55-1.30) L Estimat Glomerular Filtration Rate > 60 mL/min (>60) Glucose Level 107 MG/DL (74-106) H Calcium Level 8.6 MG/DL (8.5-10.1) Objective HEAD AND NECK: No JVD. LUNGS: Clear. CARDIOVASCULAR: Regular S1 and S2 with no gallop. ABDOMEN: Soft. EXTREMITIES: Quadriplegia with contractions ROB AHN Sep 12, 2017 19:10
[2017-09-12 19:49] VITALS: BP 138/86
[2017-09-12] MEDS: Terazosin 1mg cap ORAL SCH (20:38)
[2017-09-12] MEDS: cefTRIAXone 1 GM in D5W 55 ML IVPB SCH (20:38)
--- NOTE | 2017-09-12 22:09 | Nephrology Progress Note ---
Assessment/Plan Problem List: (1) UTI (urinary tract infection) (2) Gram-positive cocci bacteremia (3) Sepsis (4) Paraplegia Plan f/u bcx's. f/u final ucx. iv abx per id recs. monitor labs. d/c planning. Subjective Subjective late entry for 09/11 - no fver. Objective Objective Last 24 Hour Vital Signs Date Time Temp Pulse Resp B/P (MAP) Pulse Ox O2 Delivery O2 Flow Rate FiO2 09/12/17 19:49 98.2 56 20 138/86 97 Room Air 09/12/17 18:46 97.8 09/12/17 18:46 97.8 09/12/17 18:46 97.8 09/12/17 16:01 97.8 54 19 136/79 98 Room Air 09/12/17 11:52 98.0 56 20 121/79 99 Room Air 09/12/17 08:59 98.2 66 20 98/62 100 Room Air 09/12/17 04:00 98.2 72 20 138/76 100 Room Air 09/12/17 00:00 98.1 62 18 135/66 95 Room Air Intake and Output 09/12/17 09/13/17 19:00 07:00 Intake Total 1860.000 ml Output Total 1200 ml Balance 660.000 ml Intake Oral 460 ml IV Total 1400.000 ml Output Urine Total 1200 ml Laboratory Tests 09/12/17 10:30: White Blood Count 6.8, Red Blood Count 4.82, Hemoglobin 13.1L, Hematocrit 41.4L , Mean Corpuscular Volume 86, Mean Corpuscular Hemoglobin 27.2, Mean Corpuscular Hemoglobin Concent 31.7L, Red Cell Distribution Width 12.2, Platelet Count 149L, Mean Platelet Volume 9.2, Neutrophils (%) (Auto) 60.3, Lymphocytes (%) (Auto) 28.7, Monocytes (%) (Auto) 8.6, Eosinophils (%) (Auto) 1.6, Basophils (%) (Auto) 0.8, Sodium Level 141, Potassium Level 3.1L, Chloride Level 106, Carbon Dioxide Level 28, Anion Gap 7, Blood Urea Nitrogen 2L, Creatinine 0.5L, Estimat Glomerular Filtration Rate > 60, Glucose Level 107H, Calcium Level 8.6 Height (Feet): 5 Height (Inches): 10.00 Weight (Pounds): 160 General Appearance: no apparent distress Cardiovascular: normal rate, regular rhythm Respiratory/Chest: lungs clear Abdomen: non tender, soft PAT SOMMERS Sep 12, 2017 22:09
[2017-09-13] VITALS: BP 127/80
[2017-09-13 04:00] VITALS: BP 124/77
[2017-09-13] MEDS: Morphine Sulfate 2mg/ml Inj IVP PRN ×2 (05:14→17:16)
[2017-09-13 08:15] VITALS: BP 124/80
[2017-09-13] MEDS: Vancomycin 750mg/NS 250ml 250 ML IVPB SCH ×2 (08:23→15:58)
[2017-09-13] MEDS: Venlafaxine 25mg tab ORAL SCH ×3 (08:23→17:15)
[2017-09-13] MEDS: Heparin 5000 units/ml inj SUBQ SCH ×2 (08:25→21:00)
[2017-09-13 08:49] LABS: BASOPHILS % (AUTO) 0.9 % (0.0-2.0); EOSINOPHILS % (AUTO) 2.2 % (0.0-3.0); LYMPHOCYTES % (AUTO) 32.3 % (20.0-45.0); MEAN CORPUSCULAR HEMOGLOBIN 27.9 PG (27.0-31.0); MEAN CORPUSCULAR VOLUME 87 FL (80-99); MEAN PLATELET VOLUME 9.2 FL (6.5-10.1); MONOCYTES % (AUTO) 8.4 % (1.0-10.0); NEUTROPHILS % (AUTO) 56.2 % (45.0-75.0); PLATELET COUNT 156 K/UL (150-450); RED BLOOD COUNT 4.83 M/UL (4.70-6.10); RED CELL DISTRIBUTION WIDTH 12.3 % (11.6-14.8); WHITE BLOOD COUNT 7.1 K/UL (4.8-10.8)
[2017-09-13 09:03] LABS: ANION GAP 5 (5-15); CALCIUM 8.6 MG/DL (8.5-10.1); CARBON DIOXIDE 30 MMOL/L (21-32); CHLORIDE 103 MMOL/L (98-107); CREATININE 0.6 MG/DL (0.55-1.30); GLOMERULAR FILTRATION RATE > 60 mL/min (>60); POTASSIUM 3.2 MMOL/L (3.5-5.1); SODIUM 138 MMOL/L (136-145)
[2017-09-13 12:15] VITALS: BP 128/65
[2017-09-13] MEDS: Bactrim DS (160mg/800mg) tab ORAL SCH ×2 (13:26→22:02)
--- NOTE | 2017-09-13 14:17 | Cardiac Electrophysiology PN ---
Assessment/Plan Assessment/Plan 1. Chest pain. Ruled out for myocardial infarction EKG normal and echocardiogram showed EF 60%. Could not do nuclear stress test as couldn't raise his arms. Didn't reach 85% of PMHR on Dobutamine and developed LBBB. No further chest pain. Coronary CT angio if CP recurs 2. Quadriplegia. 3. Urinary tract infection, on antibiotics. JESICA RN DC planning today Subjective Subjective Comfortable in NAD. No chest pain or SOB. On IV abx. Objective Last 24 Hour Vital Signs Date Time Temp Pulse Resp B/P (MAP) Pulse Ox O2 Delivery O2 Flow Rate FiO2 09/13/17 12:15 97.2 97 19 128/65 97 Room Air 09/13/17 08:15 97.7 70 20 124/80 97 Room Air 09/13/17 05:44 97.7 09/13/17 04:00 97.7 67 20 124/77 99 Room Air 09/13/17 00:00 98.4 64 20 127/80 100 Room Air 09/12/17 21:36 98.2 09/12/17 19:49 98.2 56 20 138/86 97 Room Air 09/12/17 18:46 97.8 09/12/17 16:01 97.8 54 19 136/79 98 Room Air Intake and Output 09/13/17 09/14/17 19:00 07:00 Intake Total 240 ml Output Total 1000 ml Balance -760 ml Intake Oral 240 ml Output Urine Total 1000 ml Laboratory Tests Test 09/13/17 06:25 White Blood Count 7.1 K/UL (4.8-10.8) Red Blood Count 4.83 M/UL (4.70-6.10) Hemoglobin 13.5 G/DL (14.2-18.0) L Hematocrit 42.0 % (42.0-52.0) Mean Corpuscular Volume 87 FL (80-99) Mean Corpuscular Hemoglobin 27.9 PG (27.0-31.0) Mean Corpuscular Hemoglobin Concent 32.0 G/DL (32.0-36.0) Red Cell Distribution Width 12.3 % (11.6-14.8) Platelet Count 156 K/UL (150-450) Mean Platelet Volume 9.2 FL (6.5-10.1) Neutrophils (%) (Auto) 56.2 % (45.0-75.0) Lymphocytes (%) (Auto) 32.3 % (20.0-45.0) Monocytes (%) (Auto) 8.4 % (1.0-10.0) Eosinophils (%) (Auto) 2.2 % (0.0-3.0) Basophils (%) (Auto) 0.9 % (0.0-2.0) Sodium Level 138 MMOL/L (136-145) Potassium Level 3.2 MMOL/L (3.5-5.1) L Chloride Level 103 MMOL/L (98-107) Carbon Dioxide Level 30 MMOL/L (21-32) Anion Gap 5 (5-15) Blood Urea Nitrogen 2 mg/dL (7-18) L Creatinine 0.6 MG/DL (0.55-1.30) Estimat Glomerular Filtration Rate > 60 mL/min (>60) Glucose Level 80 MG/DL (74-106) Calcium Level 8.6 MG/DL (8.5-10.1) Microbiology Date/Time Source Procedure Growth Status 09/11/17 16:40 Blood Blood Culture - Preliminary NO GROWTH AFTER 24 HOURS Resulted 09/11/17 16:25 Blood Blood Culture - Preliminary NO GROWTH AFTER 24 HOURS Resulted Objective HEAD AND NECK: No JVD. LUNGS: Clear. CARDIOVASCULAR: Regular S1 and S2 with no gallop. ABDOMEN: Soft. EXTREMITIES: Quadriplegia with contractions ROB AHN Sep 13, 2017 14:17
--- NOTE | 2017-09-13 15:22 | Infectious Diseases Prog Note ---
Assessment/Plan Problems: (1) Gram-positive cocci bacteremia Assessment & Plan: due to coag negatve staph , source unclear ? continue vancomycin , repeated blood culture to confirm clearance is negative , TTE didn 't show any vegetations, will treat with iv vancomycin for 4 weeks. EOT 10/09/17 (2) UTI (urinary tract infection) Assessment & Plan: with enterococcus faecalis sensitive to vancomycin and ACHROMOBACTER DENITRIFICANS , on vancomycin and ceftriaxon, carlos switch ceftriaxon to bactrim and treat for two weeks (3) Chest pain Assessment & Plan: no evidence of lung infiltrates , or effusion, rule out cardiac etiology, had stress test, cardiology is following (4) Paraplegia Subjective Constitutional: Reports: no symptoms HEENT: Reports: no symptoms Respiratory: Reports: no symptoms Breasts: Reports: no symptoms Cardiovascular: Reports: no symptoms Gastrointestinal/Abdominal: Reports: no symptoms Genitourinary: Reports: no symptoms Neurologic: Reports: no symptoms Psychiatric: Reports: no symptoms Skin: Reports: no symptoms Endocrine: Reports: no symptoms Hematologic: Reports: no symptoms Musculoskeletal: Reports: no symptoms Allergies: Coded Allergies: No Known Allergies (Unverified , 05/05/13) Objective Vital Signs Last 24 Hour Vital Signs Date Time Temp Pulse Resp B/P (MAP) Pulse Ox O2 Delivery O2 Flow Rate FiO2 09/13/17 12:15 97.2 97 19 128/65 97 Room Air 09/13/17 08:15 97.7 70 20 124/80 97 Room Air 09/13/17 05:44 97.7 09/13/17 04:00 97.7 67 20 124/77 99 Room Air 09/13/17 00:00 98.4 64 20 127/80 100 Room Air 09/12/17 21:36 98.2 09/12/17 19:49 98.2 56 20 138/86 97 Room Air 09/12/17 18:46 97.8 09/12/17 16:01 97.8 54 19 136/79 98 Room Air Height (Feet): 5 Height (Inches): 10.00 Weight (Pounds): 160 General Appearance: WD/WN, no acute distress, cachetic HEENT: normocephalic, atraumatic, anicteric, mucous membranes moist, PERRL, EOMI, pharynx normal, supple Respiratory/Chest: chest wall non-tender, lungs clear, normal breath sounds, no respiratory distress, no accessory muscle use Cardiovascular: normal peripheral pulses, normal rate, regular rhythm, no gallop/murmur, no JVD Abdomen: normal bowel sounds, soft, non tender, no organomegaly, non distended , no mass, no scars Extremities: no cyanosis, no clubbing Skin: no rash, no lesions, no ulcers Neurologic/Psychiatric: alert, oriented x 3 Lymphatic: no neck adenopathy, no groin adenopathy Musculoskeletal: no effusion, atrophy Microbiology Date/Time Source Procedure Growth Status 09/11/17 16:40 Blood Blood Culture - Preliminary NO GROWTH AFTER 24 HOURS Resulted 09/11/17 16:25 Blood Blood Culture - Preliminary NO GROWTH AFTER 24 HOURS Resulted Laboratory Tests Test 09/13/17 06:25 White Blood Count 7.1 K/UL (4.8-10.8) Red Blood Count 4.83 M/UL (4.70-6.10) Hemoglobin 13.5 G/DL (14.2-18.0) L Hematocrit 42.0 % (42.0-52.0) Mean Corpuscular Volume 87 FL (80-99) Mean Corpuscular Hemoglobin 27.9 PG (27.0-31.0) Mean Corpuscular Hemoglobin Concent 32.0 G/DL (32.0-36.0) Red Cell Distribution Width 12.3 % (11.6-14.8) Platelet Count 156 K/UL (150-450) Mean Platelet Volume 9.2 FL (6.5-10.1) Neutrophils (%) (Auto) 56.2 % (45.0-75.0) Lymphocytes (%) (Auto) 32.3 % (20.0-45.0) Monocytes (%) (Auto) 8.4 % (1.0-10.0) Eosinophils (%) (Auto) 2.2 % (0.0-3.0) Basophils (%) (Auto) 0.9 % (0.0-2.0) Sodium Level 138 MMOL/L (136-145) Potassium Level 3.2 MMOL/L (3.5-5.1) L Chloride Level 103 MMOL/L (98-107) Carbon Dioxide Level 30 MMOL/L (21-32) Anion Gap 5 (5-15) Blood Urea Nitrogen 2 mg/dL (7-18) L Creatinine 0.6 MG/DL (0.55-1.30) Estimat Glomerular Filtration Rate > 60 mL/min (>60) Glucose Level 80 MG/DL (74-106) Calcium Level 8.6 MG/DL (8.5-10.1) Current Medications Medications (Trade) Dose Ordered Sig/Lindsey Route PRN Reason Start Time Stop Time Status Last Admin Dose Admin Acetaminophen (Tylenol) 650 mg Q4H PRN ORAL Mild Pain (Pain Scale 1-3) 09/07/17 22:15 10/07/17 22:14 Acetaminophen/ Hydrocodone Bitart ([place] 10) 1 ea Q4H PRN ORAL Moderate Pain (Pain Scale 4-6) 09/07/17 22:15 09/14/17 22:14 Baclofen (Lioresal) 20 mg QID ORAL 09/11/17 21:00 10/11/17 20:59 09/13/17 13:27 Chlorhexidine Gluconate (Jaceklyn-Hex 2%) 1 applic DAILY@2000 TOPIC 09/15/17 20:00 10/15/17 19:59 Dextrose (Dextrose 50%) STAT PRN IV Hypoglycemia 09/07/17 22:15 10/07/17 22:14 Gabapentin (Neurontin) 100 mg THREE TIMES A DAY ORAL 09/08/17 09:00 10/08/17 08:59 09/13/17 13:27 Heparin Sodium (Porcine) (Heparin 5000 units/ml) 5,000 units EVERY 12 HOURS SUBQ 09/08/17 09:00 10/08/17 08:59 09/11/17 21:28 Heparin Sodium/ Sodium Chloride (Heparin 2000 units/Ns 1000ml premix) 2,000 unit ONCE PRN INJ picc line placement 09/15/17 08:00 09/15/17 23:59 Lidocaine HCl (Xylocaine 1% 30ml) 30 ml ONCE PRN INJ picc placement 09/15/17 08:00 09/15/17 23:59 Magnesium Hydroxide (Mom) 30 ml DAILYPRN PRN ORAL Constipation 09/09/17 19:00 10/09/17 18:59 09/12/17 18:29 Metoclopramide HCl (Reglan) 5 mg EVERY 6 HOURS ORAL 09/08/17 00:00 10/08/17 00:00 09/13/17 11:21 Morphine Sulfate (Morphine Sulfate) 2 mg Q4H PRN IVP Severe Pain (Pain Scale 7-10) 09/07/17 22:15 09/14/17 22:14 09/13/17 05:14 Ondansetron HCl (Zofran) 4 mg Q6H PRN IVP Nausea & Vomiting 09/07/17 22:15 10/07/17 22:14 09/12/17 03:44 Sodium Chloride 1,000 ml @ 100 mls/hr Q10H IV 09/08/17 11:00 10/08/17 10:59 09/13/17 11:22 Terazosin HCl (Hytrin) 1 mg BEDTIME ORAL 09/08/17 21:00 10/08/17 20:59 09/12/17 20:38 Tizanidine HCl (Zanaflex) 4 mg THREE TIMES A DAY ORAL 09/08/17 09:00 10/08/17 08:59 09/13/17 13:26 Trimethoprim/ Sulfamethoxazole (Bactrim-DS) 1 ea Q12HR ORAL 09/13/17 14:00 09/20/17 13:59 09/13/17 13:26 Vancomycin HCl (Vanco rx to dose) 1 ea DAILY PRN MISC Per rx protocol 09/09/17 13:00 10/09/17 12:59 Vancomycin/Sodium Chloride 250 ml @ 166.667 mls/hr Q8HR@0000,0800,1600 IVPB 09/11/17 00:00 09/16/17 00:00 09/13/17 08:23 Venlafaxine HCl (Effexor) 25 mg THREE TIMES A DAY ORAL 09/08/17 09:00 10/08/17 08:59 09/13/17 13:27 Stephanie Cannon M.D. Sep 13, 2017 15:22
[2017-09-13 16:00] VITALS: BP 150/89
[2017-09-13] MEDS ORDERED: Tubing IV Secondary IV ONE (18:25)
[2017-09-13 20:00] VITALS: BP 145/75
[2017-09-13] MEDS: Terazosin 1mg cap ORAL SCH (22:03)
[2017-09-14] VITALS: BP 139/68
[2017-09-14] MEDS: Vancomycin 750mg/NS 250ml 250 ML IVPB SCH ×4 (00:12→23:35)
[2017-09-14] MEDS: Morphine Sulfate 2mg/ml Inj IVP PRN ×3 (00:22→18:20)
[2017-09-14 04:00] VITALS: BP 135/76
[2017-09-14] MEDS: Heparin 5000 units/ml inj SUBQ SCH ×2 (09:00→22:10)
[2017-09-14] MEDS: Venlafaxine 25mg tab ORAL SCH ×3 (09:55→18:20)
[2017-09-14] MEDS: Bactrim DS (160mg/800mg) tab ORAL SCH ×2 (10:11→22:14)
[2017-09-14] MEDS ORDERED: Tubing IV Secondary IV ONE (10:25)
[2017-09-14] MEDS: Milk of Magnesia 30ml Ud ORAL PRN (10:47)
[2017-09-14 12:00] VITALS: BP 131/76
[2017-09-14 15:40] VITALS: BP 133/88
--- NOTE | 2017-09-14 19:01 | Infectious Diseases Prog Note ---
Assessment/Plan Problems: (1) Gram-positive cocci bacteremia Assessment & Plan: due to coag negatve staph , source unclear ? continue vancomycin , repeated blood culture to confirm clearance is negative , TTE didn 't show any vegetations, will treat with iv vancomycin for 4 weeks. EOT 10/09/17 (2) UTI (urinary tract infection) Assessment & Plan: with enterococcus faecalis sensitive to vancomycin and ACHROMOBACTER DENITRIFICANS , continue vancomycin for four weeks total and bactrim for two weeks (3) Chest pain Assessment & Plan: no evidence of lung infiltrates , or effusion, rule out cardiac etiology, had stress test, cardiology is following (4) Paraplegia Subjective Constitutional: Reports: no symptoms HEENT: Reports: no symptoms Respiratory: Reports: no symptoms Breasts: Reports: no symptoms Cardiovascular: Reports: no symptoms Gastrointestinal/Abdominal: Reports: no symptoms Genitourinary: Reports: no symptoms Neurologic: Reports: no symptoms Psychiatric: Reports: no symptoms Skin: Reports: no symptoms Endocrine: Reports: no symptoms Allergies: Coded Allergies: No Known Allergies (Unverified , 05/05/13) Objective Vital Signs Last 24 Hour Vital Signs Date Time Temp Pulse Resp B/P (MAP) Pulse Ox O2 Delivery O2 Flow Rate FiO2 09/14/17 15:40 98.0 54 20 133/88 95 Room Air 09/14/17 13:46 97.8 09/14/17 13:46 97.8 09/14/17 12:00 97.8 70 18 131/76 97 09/14/17 10:25 97.9 09/14/17 04:00 97.9 67 21 135/76 100 Room Air 09/14/17 00:00 98.2 61 20 139/68 100 Room Air 09/13/17 20:00 98.1 58 20 145/75 100 Room Air Height (Feet): 5 Height (Inches): 10.00 Weight (Pounds): 160 General Appearance: WD/WN, no acute distress HEENT: normocephalic, atraumatic, anicteric, mucous membranes moist, PERRL Respiratory/Chest: chest wall non-tender, lungs clear, normal breath sounds, no respiratory distress, no accessory muscle use Cardiovascular: normal peripheral pulses, normal rate, regular rhythm, no gallop/murmur, no JVD Abdomen: normal bowel sounds, soft, non tender, no organomegaly, non distended , no mass, no scars Extremities: no cyanosis, no clubbing Skin: no rash, no lesions, no ulcers Neurologic/Psychiatric: alert, oriented x 3, responsive Current Medications Medications (Trade) Dose Ordered Sig/Lindsey Route PRN Reason Start Time Stop Time Status Last Admin Dose Admin Acetaminophen (Tylenol) 650 mg Q4H PRN ORAL Mild Pain (Pain Scale 1-3) 09/07/17 22:15 10/07/17 22:14 Acetaminophen/ Hydrocodone Bitart ([place] 10/325) 1 ea Q4H PRN ORAL Moderate Pain (Pain Scale 4-6) 09/07/17 22:15 09/14/17 22:14 Baclofen (Lioresal) 20 mg QID ORAL 09/11/17 21:00 10/11/17 20:59 09/14/17 18:21 Chlorhexidine Gluconate (Jackelyn-Hex 2%) 1 applic DAILY@2000 TOPIC 09/15/17 20:00 10/15/17 19:59 Dextrose (Dextrose 50%) STAT PRN IV Hypoglycemia 09/07/17 22:15 10/07/17 22:14 Gabapentin (Neurontin) 100 mg THREE TIMES A DAY ORAL 09/08/17 09:00 10/08/17 08:59 09/14/17 18:20 Heparin Sodium (Porcine) (Heparin 5000 units/ml) 5,000 units EVERY 12 HOURS SUBQ 09/08/17 09:00 10/08/17 08:59 09/13/17 21:00 Heparin Sodium/ Sodium Chloride (Heparin 2000 units/Ns 1000ml premix) 2,000 unit ONCE PRN INJ picc line placement 09/15/17 08:00 09/15/17 23:59 Lidocaine HCl (Xylocaine 1% 30ml) 30 ml ONCE PRN INJ picc placement 09/15/17 08:00 09/15/17 23:59 Magnesium Hydroxide (Mom) 30 ml DAILYPRN PRN ORAL Constipation 09/09/17 19:00 10/09/17 18:59 09/14/17 10:47 Metoclopramide HCl (Reglan) 5 mg EVERY 6 HOURS ORAL 09/08/17 00:00 10/08/17 00:00 09/14/17 18:21 Morphine Sulfate (Morphine Sulfate) 2 mg Q4H PRN IVP Severe Pain (Pain Scale 7-10) 09/07/17 22:15 09/14/17 22:14 09/14/17 18:20 Ondansetron HCl (Zofran) 4 mg Q6H PRN IVP Nausea & Vomiting 09/07/17 22:15 10/07/17 22:14 09/12/17 03:44 Sodium Chloride 1,000 ml @ 100 mls/hr Q10H IV 09/08/17 11:00 10/08/17 10:59 09/14/17 15:37 Terazosin HCl (Hytrin) 1 mg BEDTIME ORAL 09/08/17 21:00 10/08/17 20:59 09/13/17 22:03 Tizanidine HCl (Zanaflex) 4 mg THREE TIMES A DAY ORAL 09/08/17 09:00 10/08/17 08:59 09/14/17 18:20 Trimethoprim/ Sulfamethoxazole (Bactrim-DS) 1 ea Q12HR ORAL 09/13/17 14:00 09/20/17 13:59 09/14/17 10:11 Vancomycin HCl (Vanco rx to dose) 1 ea DAILY PRN MISC Per rx protocol 09/09/17 13:00 10/09/17 12:59 Vancomycin/Sodium Chloride 250 ml @ 166.667 mls/hr Q8HR@0000,0800,1600 IVPB 09/11/17 00:00 09/16/17 00:00 09/14/17 15:40 Venlafaxine HCl (Effexor) 25 mg THREE TIMES A DAY ORAL 09/08/17 09:00 10/08/17 08:59 09/14/17 18:20 Stephanie Cannon M.D. Sep 14, 2017 19:01
[2017-09-14 20:00] VITALS: BP 103/72
[2017-09-14] MEDS: Terazosin 1mg cap ORAL SCH (22:08)
--- NOTE | 2017-09-14 22:20 | Nephrology Progress Note ---
Assessment/Plan Problem List: (1) UTI (urinary tract infection) (2) Gram-positive cocci bacteremia (3) Sepsis (4) Paraplegia Plan f/u bcx's. f/u final ucx. iv abx per id recs. monitor labs. d/c planning. Subjective Subjective late entry for 09/13 - no sob/cp. Objective Objective Last 24 Hour Vital Signs Date Time Temp Pulse Resp B/P (MAP) Pulse Ox O2 Delivery O2 Flow Rate FiO2 09/14/17 20:00 98.4 61 21 103/72 100 Room Air 09/14/17 18:50 98.0 09/14/17 18:50 98.0 09/14/17 18:50 98.0 09/14/17 15:40 98.0 54 20 133/88 95 Room Air 09/14/17 12:00 97.8 70 18 131/76 97 09/14/17 04:00 97.9 67 21 135/76 100 Room Air 09/14/17 00:00 98.2 61 20 139/68 100 Room Air Intake and Output 09/14/17 09/15/17 19:00 07:00 Intake Total 2396.667 ml Output Total 3400 ml Balance -1003.333 ml Intake Oral 1280 ml IV Total 1116.667 ml Output Urine Total 3400 ml # Bowel Movements 1 Height (Feet): 5 Height (Inches): 10.00 Weight (Pounds): 160 General Appearance: no apparent distress Cardiovascular: normal rate, regular rhythm Respiratory/Chest: lungs clear Abdomen: non tender, soft PAT SOMMERS Sep 14, 2017 22:20
--- NOTE | 2017-09-14 22:22 | Nephrology Progress Note ---
Assessment/Plan Problem List: (1) UTI (urinary tract infection) (2) Gram-positive cocci bacteremia (3) Sepsis (4) Paraplegia Plan f/u bcx's. f/u final ucx. iv abx per id recs. monitor labs. d/c planning. Subjective Subjective no new c/o Objective Objective Last 24 Hour Vital Signs Date Time Temp Pulse Resp B/P (MAP) Pulse Ox O2 Delivery O2 Flow Rate FiO2 09/14/17 20:00 98.4 61 21 103/72 100 Room Air 09/14/17 18:50 98.0 09/14/17 18:50 98.0 09/14/17 18:50 98.0 09/14/17 15:40 98.0 54 20 133/88 95 Room Air 09/14/17 12:00 97.8 70 18 131/76 97 09/14/17 04:00 97.9 67 21 135/76 100 Room Air 09/14/17 00:00 98.2 61 20 139/68 100 Room Air Intake and Output 09/14/17 09/15/17 19:00 07:00 Intake Total 2396.667 ml Output Total 3400 ml Balance -1003.333 ml Intake Oral 1280 ml IV Total 1116.667 ml Output Urine Total 3400 ml # Bowel Movements 1 Height (Feet): 5 Height (Inches): 10.00 Weight (Pounds): 160 General Appearance: no apparent distress Cardiovascular: normal rate, regular rhythm Respiratory/Chest: lungs clear Abdomen: non tender, soft PAT SOMMERS Sep 14, 2017 22:22
[2017-09-15] VITALS (7 sets, daily range): BP systolic 102–142; BP diastolic 64–89
[2017-09-15] MEDS ORDERED: Heparin 2000 units/Ns 1000ml INJ PRN (08:00)
[2017-09-15] MEDS ORDERED: Lidocaine 1% Plain 30 ml INJ PRN (08:00)
[2017-09-15] MEDS: Vancomycin 750mg/NS 250ml 250 ML IVPB SCH ×3 (08:53→23:25)
[2017-09-15] MEDS: Venlafaxine 25mg tab ORAL SCH ×3 (08:54→17:45)
[2017-09-15] MEDS: Bactrim DS (160mg/800mg) tab ORAL SCH ×2 (08:54→20:21)
[2017-09-15] MEDS: Heparin 5000 units/ml inj SUBQ SCH ×2 (08:55→20:31)
--- NOTE | 2017-09-15 16:39 | Diagnostic Imaging Report ---
Indications: Needs long-term IV access Technique: Ultrasound confirms patent compressible left basilic vein. Total sterile technique, including sterile probe cover and sterile gel, hat, mask,, sterile gown, large sterile drape, and preparation with 2% chlorhexidine utilized. Local anesthesia with 1% lidocaine. Under real-time ultrasound guidance, puncture left basilic vein using 21-gauge needle, documented and archived, passage 0.018 guidewire under direct fluoroscopy, which was used to determine appropriate catheter length, exchange for 5 [place]an peel-away sheath. 5 [place] Bard dual-lumen power PICC cut to 47 cm. It was inserted through the peel-away sheath. Peel-away sheath and guidewire removed. Catheter fixed to the skin. Both catheter ports aspirated and flushed. Patient tolerated procedure well, without immediate complication. Digital radiograph documents satisfactory catheter tip position, at the cavoatrial junction. Total fluoroscopy time 1.2 minutes. Total dose area product 3.2 dGycm2 Impression: Successful placement of left arm PICC under sonographic and fluoroscopic guidance, as described above.
--- NOTE | 2017-09-15 17:37 | Cardiac Electrophysiology PN ---
Assessment/Plan Assessment/Plan 1. Chest pain. Ruled out for myocardial infarction EKG normal and echocardiogram showed EF 60%. Could not do nuclear stress test as couldn't raise his arms. Didn't reach 85% of PMHR on Dobutamine and developed LBBB. No further chest pain. Coronary CT angio if CP recurs 2. Quadriplegia. 3. Urinary tract infection, on antibiotics via PICC line. JESICA RN Subjective Subjective Comfortable in NAD. No chest pain or SOB.Had PICC line placement. On IV abx.DC planning tomorrow. Objective Last 24 Hour Vital Signs Date Time Temp Pulse Resp B/P (MAP) Pulse Ox O2 Delivery O2 Flow Rate FiO2 09/15/17 13:54 97.9 09/15/17 13:54 97.9 09/15/17 12:00 97.9 53 16 124/72 97 09/15/17 08:00 97.9 69 15 122/73 97 09/15/17 04:00 97.9 80 20 142/89 97 Room Air 09/15/17 00:00 97.7 65 20 135/72 99 Room Air 09/14/17 20:00 98.4 61 21 103/72 100 Room Air 09/14/17 18:50 98.0 Intake and Output 09/15/17 09/16/17 19:00 07:00 Intake Total 730.000 ml Output Total 1000 ml Balance -270.000 ml Intake Oral 480 ml IV Total 250.000 ml Output Urine Total 1000 ml Objective HEAD AND NECK: No JVD. LUNGS: Clear. CARDIOVASCULAR: Regular S1 and S2 with no gallop. ABDOMEN: Soft. EXTREMITIES: Quadriplegia with contractions ROB AHN Sep 15, 2017 17:37
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
[2017-09-15] MEDS ORDERED: Norco 10mg/325mg tab ORAL PRN (19:45)
[2017-09-15] MEDS ORDERED: Morphine Sulfate 2mg/ml Inj IVP PRN (19:45)
[2017-09-15] MEDS: Terazosin 1mg cap ORAL SCH (20:22)
[2017-09-15] MEDS: Dyna-Hex 2% Top Sol 2oz TOPIC SCH (20:22)
[2017-09-15 20:58] LABS: ANION GAP 7 mmol/L (5-15); CARBON DIOXIDE 29 MMOL/L (21-32); CHLORIDE 104 MMOL/L (98-107); CREATININE 0.6 MG/DL (0.55-1.30); GLOMERULAR FILTRATION RATE > 60 mL/min (>60); POTASSIUM 3.7 MMOL/L (3.5-5.1); SODIUM 140 MMOL/L (136-145)
--- NOTE | 2017-09-15 23:23 | Infectious Diseases Prog Note ---
Assessment/Plan Problems: (1) UTI (urinary tract infection) Assessment & Plan: Polymicrobial. Complicated. In the setting of neurogenic bladder. Continue with vancomycin IV and Bactrim for 5 more days as outpatient. (2) Gram-positive cocci bacteremia Assessment & Plan: Follow-up BCx cleared. Had no indwelling IV line when admitted. Will be on 5 more days of vancomycin IV as outpatient. (3) Neurogenic bladder (4) Paraplegia Subjective Constitutional: Reports: no symptoms Cardiovascular: Reports: no symptoms Neurologic: Reports: no symptoms Endocrine: Reports: no symptoms Hematologic: Reports: no symptoms Allergies: Coded Allergies: No Known Allergies (Unverified , 05/05/13) Objective Vital Signs Last 24 Hour Vital Signs Date Time Temp Pulse Resp B/P (MAP) Pulse Ox O2 Delivery O2 Flow Rate FiO2 09/15/17 21:21 97.9 09/15/17 20:00 98.1 65 19 130/74 99 Room Air 09/15/17 18:44 97.9 09/15/17 16:00 97.3 67 20 102/64 99 Room Air 09/15/17 12:00 97.9 53 16 124/72 97 09/15/17 08:00 97.9 69 15 122/73 97 09/15/17 04:00 97.9 80 20 142/89 97 Room Air 09/15/17 00:00 97.7 65 20 135/72 99 Room Air Height (Feet): 5 Height (Inches): 10.00 Weight (Pounds): 160 General Appearance: WD/WN Respiratory/Chest: no respiratory distress Cardiovascular: no JVD Abdomen: non distended Extremities: no cyanosis Skin: other Lymphatic: no neck adenopathy Musculoskeletal: atrophy Laboratory Tests Test 09/15/17 17:30 Sodium Level 140 MMOL/L (136-145) Potassium Level 3.7 MMOL/L (3.5-5.1) Chloride Level 104 MMOL/L (98-107) Carbon Dioxide Level 29 MMOL/L (21-32) Anion Gap 7 mmol/L (5-15) Blood Urea Nitrogen 5 mg/dL (7-18) L Creatinine 0.6 MG/DL (0.55-1.30) Estimat Glomerular Filtration Rate > 60 mL/min (>60) Glucose Level 69 MG/DL (74-106) L Calcium Level 9.0 MG/DL (8.5-10.1) Current Medications Medications (Trade) Dose Ordered Sig/Lindsey Route PRN Reason Start Time Stop Time Status Last Admin Dose Admin Acetaminophen (Tylenol) 650 mg Q4H PRN ORAL Mild Pain (Pain Scale 1-3) 09/07/17 22:15 10/07/17 22:14 Acetaminophen/ Hydrocodone Bitart ([place] 10/325) 1 ea Q4H PRN ORAL Moderate Pain (Pain Scale 4-6) 09/15/17 19:45 09/22/17 19:44 Baclofen (Lioresal) 20 mg QID ORAL 09/11/17 21:00 10/11/17 20:59 09/15/17 20:22 Chlorhexidine Gluconate (Jackelyn-Hex 2%) 1 applic DAILY@2000 TOPIC 09/15/17 20:00 10/15/17 19:59 09/15/17 20:22 Dextrose (Dextrose 50%) STAT PRN IV Hypoglycemia 09/07/17 22:15 10/07/17 22:14 Gabapentin (Neurontin) 100 mg THREE TIMES A DAY ORAL 09/08/17 09:00 10/08/17 08:59 09/15/17 17:46 Heparin Sodium (Porcine) (Heparin 5000 units/ml) 5,000 units EVERY 12 HOURS SUBQ 09/08/17 09:00 10/08/17 08:59 09/15/17 20:31 Heparin Sodium/ Sodium Chloride (Heparin 2000 units/Ns 1000ml premix) 2,000 unit ONCE PRN INJ picc line placement 09/15/17 08:00 09/15/17 23:59 Lidocaine HCl (Xylocaine 1% 30ml) 30 ml ONCE PRN INJ picc placement 09/15/17 08:00 09/15/17 23:59 Magnesium Hydroxide (Mom) 30 ml DAILYPRN PRN ORAL Constipation 09/09/17 19:00 10/09/17 18:59 09/14/17 10:47 Metoclopramide HCl (Reglan) 5 mg EVERY 6 HOURS ORAL 09/08/17 00:00 10/08/17 00:00 09/15/17 17:46 Morphine Sulfate (Morphine Sulfate) 2 mg Q4H PRN IVP Severe Pain (Pain Scale 7-10) 09/15/17 19:45 09/22/17 19:44 Ondansetron HCl (Zofran) 4 mg Q6H PRN IVP Nausea & Vomiting 09/07/17 22:15 10/07/17 22:14 09/12/17 03:44 Terazosin HCl (Hytrin) 1 mg BEDTIME ORAL 09/08/17 21:00 10/08/17 20:59 09/15/17 20:22 Tizanidine HCl (Zanaflex) 4 mg THREE TIMES A DAY ORAL 09/08/17 09:00 10/08/17 08:59 09/15/17 17:45 Trimethoprim/ Sulfamethoxazole (Bactrim-DS) 1 ea Q12HR ORAL 09/13/17 14:00 09/27/17 23:59 09/15/17 20:21 Vancomycin HCl (Vanco rx to dose) 1 ea DAILY PRN MISC Per rx protocol 09/09/17 13:00 10/09/17 12:59 Vancomycin/Sodium Chloride 250 ml @ 166.667 mls/hr Q8HR@0000,0800,1600 IVPB 09/11/17 00:00 09/16/17 23:59 09/15/17 16:58 Venlafaxine HCl (Effexor) 25 mg THREE TIMES A DAY ORAL 09/08/17 09:00 10/08/17 08:59 09/15/17 17:45 ANTONY VALADEZ Sep 15, 2017 23:23
[2017-09-16 04:00] VITALS: BP_SYST 132; BP_SYST 140; BP_DIAS 68; BP_DIAS 72
[2017-09-16 07:44] LABS: ALANINE AMINOTRANSFERASE 11 U/L (12-78); ALBUMIN/GLOBULIN RATIO 0.9 (1.0-2.7); ANION GAP 9 mmol/L (5-15); ASPARTATE AMINO TRANSFERASE 14 U/L (15-37); CALCIUM 8.9 MG/DL (8.5-10.1); CARBON DIOXIDE 26 MMOL/L (21-32); CHLORIDE 102 MMOL/L (98-107); CREATININE 0.8 MG/DL (0.55-1.30); GLOMERULAR FILTRATION RATE > 60 mL/min (>60); POTASSIUM 4.2 MMOL/L (3.5-5.1); SODIUM 137 MMOL/L (136-145)
[2017-09-16 08:00] VITALS: BP 103/75
[2017-09-16] MEDS: Vancomycin 750mg/NS 250ml 250 ML IVPB SCH ×3 (09:12→23:41)
[2017-09-16] MEDS: Bactrim DS (160mg/800mg) tab ORAL SCH ×2 (09:12→21:48)
[2017-09-16] MEDS: Venlafaxine 25mg tab ORAL SCH ×3 (09:14→19:15)
[2017-09-16] MEDS: Heparin 5000 units/ml inj SUBQ SCH ×2 (09:17→21:54)
[2017-09-16 12:00] VITALS: BP 104/65
[2017-09-16 16:00] VITALS: BP 109/69
--- NOTE | 2017-09-16 16:34 | Cardiac Electrophysiology PN ---
Assessment/Plan Assessment/Plan 1. Chest pain. Ruled out for myocardial infarction EKG normal and echocardiogram showed EF 60%. Could not do nuclear stress test as couldn't raise his arms. Didn't reach 85% of PMHR on Dobutamine. No further chest pain. Coronary CT angio as out patient. if CP recurs 2. Quadriplegia. 3. Urinary tract infection, on antibiotics via PICC line. JESICA RN Subjective Subjective Comfortable in NAD. Getting abx via PICC line .DC planning today Objective Last 24 Hour Vital Signs Date Time Temp Pulse Resp B/P (MAP) Pulse Ox O2 Delivery O2 Flow Rate FiO2 09/16/17 12:00 97.9 62 13 104/65 99 Room Air 09/16/17 08:00 97.5 70 19 103/75 99 Room Air 09/16/17 04:00 97.7 75 20 140/72 98 Room Air 09/15/17 23:55 98.1 63 18 126/79 100 Room Air 09/15/17 21:21 97.9 09/15/17 20:00 98.1 65 19 130/74 99 Room Air 09/15/17 18:44 97.9 Intake and Output 09/16/17 09/17/17 19:00 07:00 Intake Total 240 ml Balance 240 ml Intake Oral 240 ml Laboratory Tests Test 09/15/17 17:30 09/16/17 06:45 Sodium Level 140 MMOL/L (136-145) 137 MMOL/L (136-145) Potassium Level 3.7 MMOL/L (3.5-5.1) 4.2 MMOL/L (3.5-5.1) Chloride Level 104 MMOL/L (98-107) 102 MMOL/L (98-107) Carbon Dioxide Level 29 MMOL/L (21-32) 26 MMOL/L (21-32) Anion Gap 7 mmol/L (5-15) 9 mmol/L (5-15) Blood Urea Nitrogen 5 mg/dL (7-18) L 3 mg/dL (7-18) L Creatinine 0.6 MG/DL (0.55-1.30) 0.8 MG/DL (0.55-1.30) Estimat Glomerular Filtration Rate > 60 mL/min (>60) > 60 mL/min (>60) Glucose Level 69 MG/DL (74-106) L 91 MG/DL (74-106) Calcium Level 9.0 MG/DL (8.5-10.1) 8.9 MG/DL (8.5-10.1) Total Bilirubin 0.7 MG/DL (0.2-1.0) Aspartate Amino Transf (AST/SGOT) 14 U/L (15-37) L Alanine Aminotransferase (ALT/SGPT) 11 U/L (12-78) L Alkaline Phosphatase 68 U/L (46-116) Total Protein 7.0 G/DL (6.4-8.2) Albumin 3.3 G/DL (3.4-5.0) L Globulin 3.7 g/dL Albumin/Globulin Ratio 0.9 (1.0-2.7) L Vancomycin Level Trough 16.6 ug/mL (5.0-12.0) H Objective HEAD AND NECK: No JVD. LUNGS: Clear. CARDIOVASCULAR: Regular S1 and S2 with no gallop. ABDOMEN: Soft. EXTREMITIES: Quadriplegia with contractions ROB AHN Sep 16, 2017 16:33
[2017-09-16] MEDS ORDERED: BACTRIM DS TAB1 EAC1 ORAL (19:36)
[2017-09-16] MEDS ORDERED: VANCOMYCIN1 GM/2502 IVPB (19:36)
[2017-09-16 20:00] VITALS: BP 100/52
[2017-09-16] MEDS: Dyna-Hex 2% Top Sol 2oz TOPIC SCH (21:47)
[2017-09-16] MEDS: Terazosin 1mg cap ORAL SCH (21:48)
--- NOTE | 2017-09-16 22:54 | Nephrology Progress Note ---
Assessment/Plan Problem List: (1) UTI (urinary tract infection) (2) Gram-positive cocci bacteremia (3) Sepsis (4) Paraplegia Plan f/u bcx's. f/u final ucx. iv abx per id recs. monitor labs. d/c planning. Subjective Subjective no new c/o Objective Objective Last 24 Hour Vital Signs Date Time Temp Pulse Resp B/P (MAP) Pulse Ox O2 Delivery O2 Flow Rate FiO2 09/16/17 20:14 97.0 09/16/17 20:14 97.0 09/16/17 20:00 99.1 90 20 100/52 98 Room Air 09/16/17 16:00 97.0 61 16 109/69 99 09/16/17 12:00 97.9 62 13 104/65 99 Room Air 09/16/17 08:00 97.5 70 19 103/75 99 Room Air 09/16/17 04:00 97.7 75 20 140/72 98 Room Air 09/15/17 23:55 98.1 63 18 126/79 100 Room Air Intake and Output 09/16/17 09/17/17 19:00 07:00 Intake Total 240 ml Balance 240 ml Intake Oral 240 ml Laboratory Tests 09/16/17 06:45: Sodium Level 137, Potassium Level 4.2, Chloride Level 102, Carbon Dioxide Level 26, Anion Gap 9, Blood Urea Nitrogen 3L, Creatinine 0.8, Estimat Glomerular Filtration Rate > 60, Glucose Level 91, Calcium Level 8.9, Total Bilirubin 0.7, Aspartate Amino Transf (AST/SGOT) 14L, Alanine Aminotransferase (ALT/SGPT) 11L, Alkaline Phosphatase 68, Total Protein 7.0, Albumin 3.3L, Globulin 3.7, Albumin/ Globulin Ratio 0.9L, Vancomycin Level Trough 16.6H Height (Feet): 5 Height (Inches): 10.00 Weight (Pounds): 160 PAT SOMMERS Sep 16, 2017 22:54
[2017-09-17] VITALS: BP 111/72
[2017-09-17 04:00] VITALS: BP 112/69
[2017-09-17 08:00] VITALS: BP 116/83
[2017-09-17] MEDS: Vancomycin 750mg/NS 250ml 250 ML IVPB SCH (08:42)
[2017-09-17] MEDS: Bactrim DS (160mg/800mg) tab ORAL SCH (08:43)
[2017-09-17] MEDS: Heparin 5000 units/ml inj SUBQ SCH (08:46)
[2017-09-17] MEDS: Venlafaxine 25mg tab ORAL SCH ×2 (08:51→12:48)
[2017-09-17 12:00] VITALS: BP 106/65
[2017-09-17 12:46] VITALS: BP 108/62
[2017-09-17] MEDS ORDERED: Tubing IV Secondary IV ONE (15:22)
--- NOTE | 2017-09-19 16:35 | Discharge Summary ---
Discharge Summary Hospital Course Date of Admission Sep 07, 2017 at 19:53 Date of Discharge Sep 17, 2017 at 15:23 Admitting Diagnosis UTI/Paraplegia HPI Juan Jose Han Jr is a 41 year old male who was admitted on Sep 07, 2017 at 19:53 for Urinary Tract Infection,Paraplegia Hospital Course [id number] Discharge Discharge Disposition Patient was discharged to Home with Home Health(06) Discharge Diagnoses: Roshni Broderick NP Sep 19, 2017 16:35
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
== END 2017-09-17 15:23 | disposition home health service (06) | DRG 720 ==
LOC: EDBD 18:41 → EDUNIT# 18:41 → EMR 19:43 → 4E 19:53 → EDBEDREQ 20:34
PROC: 02HV33Z Insertion of Infusion Device into Superior Vena Cava, Percutaneous Approach (ICD-10-PCS; principal; 2017-09-15)
DX: A41.9 Sepsis, unspecified organism (principal); G82.50 Quadriplegia, unspecified; N31.9 Neuromuscular dysfunction of bladder, unspecified; G62.9 Polyneuropathy, unspecified; W34.00XS Accidental discharge from unspecified firearms or gun, sequela; N39.0 Urinary tract infection, site not specified; I44.7 Left bundle-branch block, unspecified; F17.200 Nicotine dependence, unspecified, uncomplicated
CPT/HCPCS: 36415; 36569; 71010; 74000; 76937; 80048; 80053; 80061; 80202; 80300; 81003; 82550; 83605; 83880; 84484; 85025; 85610; 85651; 85730; 86140; 87040; 87086; 87181; 93005; 93017; 93306; 93350; 99285; J2405; J8499

== ENCOUNTER 2018-04-28 03:35 | Emergency (ER) | payer OTHER ==
[~2018-04-28] VITALS: Ht 180.3 cm; Wt 75.7 kg
[~2018-04-28 03:35] MED LIST changes: +BACTRIM DS TAB1 EAC1 ORAL; +VANCOMYCIN1 GM/2502 IVPB
[2018-04-28 03:43] VITALS: BP 93/61
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
[2018-04-28 04:02] LABS: BASOPHILS % (AUTO) 0.9 % (0.0-2.0); EOSINOPHILS % (AUTO) 1.5 % (0.0-3.0); HEMATOCRIT 42.2 % (42.0-52.0); HEMOGLOBIN 13.9 G/DL (14.2-18.0); LYMPHOCYTES % (AUTO) 33.3 % (20.0-45.0); MEAN CORPUSCULAR VOLUME 82 FL (80-99); MONOCYTES % (AUTO) 5.9 % (1.0-10.0); NEUTROPHILS % (AUTO) 58.5 % (45.0-75.0); PLATELET COUNT 174 K/UL (150-450); RED BLOOD COUNT 5.15 M/UL (4.70-6.10)
[2018-04-28 04:13] LABS: ANION GAP 7 mmol/L (5-15); BLOOD UREA NITROGEN 10 mg/dL (7-18); CALCIUM 9.2 MG/DL (8.5-10.1); CARBON DIOXIDE 27 MMOL/L (21-32); CHLORIDE 103 MMOL/L (98-107); CREATININE 0.9 MG/DL (0.55-1.30); POTASSIUM 3.9 MMOL/L (3.5-5.1); SODIUM 136 MMOL/L (136-145)
[2018-04-28 06:00] VITALS: BP 99/59
[2018-04-28 07:10] VITALS: BP 99/55
[2018-04-28 07:15] VITALS: BP 99/55
== END 2018-04-28 07:15 | disposition home or self-care (01) ==
LOC: EDBD 03:35 → EMR 03:48
DX: G82.50 Quadriplegia, unspecified (principal); N31.9 Neuromuscular dysfunction of bladder, unspecified
CPT/HCPCS: 36415; 80048; 85025; 99283

== ENCOUNTER 2018-11-07 03:46 | Inpatient (IN) | payer OTHER ==
[~2018-11-07] VITALS: Ht 182.9 cm; Wt 78.6 kg
[2018-11-07] MEDS ORDERED: Morphine Sulfate 2mg/ml Inj IVP ONE (04:00)
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
[2018-11-07 04:09] VITALS: BP 136/87
[2018-11-07 04:18] LABS: BASOPHILS % (AUTO) 0.6 % (0.0-2.0); HEMATOCRIT 46.6 % (42.0-52.0); HEMOGLOBIN 15.1 G/DL (14.2-18.0); LYMPHOCYTES % (AUTO) 20.2 % (20.0-45.0); MEAN CORPUSCULAR VOLUME 81 FL (80-99); NEUTROPHILS % (AUTO) 70.2 % (45.0-75.0); PLATELET COUNT 169 K/UL (150-450); RED BLOOD COUNT 5.77 M/UL (4.70-6.10); RED CELL DISTRIBUTION WIDTH 11.3 % (11.6-14.8); WHITE BLOOD COUNT 7.6 K/UL (4.8-10.8)
[2018-11-07 04:19] LABS: BILIRUBIN, URINE NEGATIVE (NEGATIVE); COLOR,URINE PALE YELLOW; GLUCOSE, URINE (UA) NEGATIVE (NEGATIVE); KETONES,URINE 4+ (NEGATIVE); LEUKOCYTE ESTERASE ,URINE 3+ (NEGATIVE); NITRITE,URINE POSITIVE (NEGATIVE); PH,URINE 6 (4.5-8.0); PROTEIN,URINE 1+ (NEGATIVE); UROBILINOGEN,URINE NORMAL MG/DL (0.0-1.0)
[2018-11-07 04:31] LABS: APPEARANCE,URINE SLIGHTLY CLOUDY
[2018-11-07 04:33] LABS: ANION GAP 15 mmol/L (5-15); BLOOD UREA NITROGEN 5 mg/dL (7-18); CALCIUM 9.3 MG/DL (8.5-10.1); CARBON DIOXIDE 23 MMOL/L (21-32); CHLORIDE 96 MMOL/L (98-107); CREATININE 0.7 MG/DL (0.55-1.30); POTASSIUM 3.7 MMOL/L (3.5-5.1); SODIUM 134 MMOL/L (136-145)
[2018-11-07 04:46] LABS: ALANINE AMINOTRANSFERASE 14 U/L (12-78); ALBUMIN 3.9 G/DL (3.4-5.0); ALBUMIN/GLOBULIN RATIO 0.8 (1.0-2.7); ALKALINE PHOSPHATASE 77 U/L (46-116); ASPARTATE AMINO TRANSFERASE 22 U/L (15-37); CREATINE KINASE 256 U/L (26-308)
[2018-11-07] MEDS ORDERED: Piperacillin/Tazobactam 3.375 GM in NS 110 ML IVPB ONE (05:00)
[2018-11-07] MEDS ORDERED: Vancomycin 1 GM in D5W 275 ML IVPB ONE (05:00)
--- NOTE | 2018-11-07 06:21 | Diagnostic Imaging Report ---
EXAM: XR Chest, 1 View CLINICAL HISTORY: COUGH TECHNIQUE: Frontal view of the chest. COMPARISON: No relevant prior studies available. FINDINGS: Lungs: Unremarkable. No consolidation. Pleural space: Unremarkable. No pneumothorax. Heart: Unremarkable. No cardiomegaly. Mediastinum: Unremarkable. Bones/joints: Unremarkable. IMPRESSION: No acute findings.
--- NOTE | 2018-11-07 06:22 | Diagnostic Imaging Report ---
EXAM: XR Abdomen, 2 Views CLINICAL HISTORY: COUGH TECHNIQUE: Frontal view of the abdomen/pelvis. COMPARISON: No relevant prior studies available. FINDINGS: Intraperitoneal space: No free air. Gastrointestinal tract: Unremarkable. No dilation. Bones/joints: Unremarkable. Vasculature: IVC filter. Stent seen within the pelvis. IMPRESSION: No acute findings.
[2018-11-07 07:54] VITALS: BP_SYST 120; BP_SYST 130; BP_DIAS 71; BP_DIAS 80
[2018-11-07] MEDS ORDERED: Morphine Sulfate 4mg/ml Inj (IV/IM USE ONLY) IVP PRN (08:00)
[2018-11-07] MEDS ORDERED: Promethazine HCl 12.5 MG in NS 55 ML IV PRN (11:45)
[2018-11-07] MEDS ORDERED: Nitroglycerin Subl 0.4mg tab SL PRN (11:54)
[2018-11-07] MEDS ORDERED: Mylanta II UD 30ml ORAL PRN (11:54)
[2018-11-07] MEDS ORDERED: LORazepam Inj 2mg/ml 1ml IV PRN (11:56)
[2018-11-07 12:00] VITALS: BP 113/67
[2018-11-07] MEDS: Venlafaxine 25mg tab ORAL SCH ×2 (12:51→17:01)
[2018-11-07] MEDS: D5 1/2NS 1,000 ML IV SCH ×2 (12:53→23:39)
--- NOTE | 2018-11-07 13:12 | Consultation ---
Consult Note Consult Note ID Dic # [id number] Viraj Rivero MD Nov 07, 2018 13:12
[2018-11-07] MEDS: Morphine Sulfate 2mg/ml Inj IVP PRN ×3 (14:27→23:24)
--- NOTE | 2018-11-07 15:19 | Diagnostic Imaging Report ---
EXAM: US Abdomen Complete CLINICAL HISTORY: Abdominal pain TECHNIQUE: Real-time ultrasound of the abdomen (complete) with image documentation. COMPARISON: Report from CT abdomen and pelvis dated 11/03/13 FINDINGS: Liver: Liver diameter of 15.8 cm. No hepatic lesions. No intrahepatic biliary ductal dilatation. Gallbladder: Cholelithiasis and gallbladder sludge. Normal gallbladder wall thickness of 2.3 mm. No pericholecystic fluid. The hop farmer recorded a negative Uriarte's sign. Common bile duct: Common bile duct diameter of 2.3 mm. No stones. No dilation. Pancreas: Unremarkable as visualized. Pancreatic body and tail are obscured by bowel gas. Kidneys: Punctate stone in the right mid kidney. Right kidney length of 12.3 cm. Left kidney length of 12.4 cm. Normal cortical thickness. No visible parenchymal lesions. No hydronephrosis. Spleen: Spleen diameter of 11.7 cm, within normal limits. Aorta: Visualized portions of the aorta appear unremarkable. Inferior vena cava: Visualized portions of the IVC appear unremarkable. IMPRESSION: 1. Cholelithiasis and gallbladder sludge. Normal gallbladder wall thickness of 2.3 mm. No pericholecystic fluid. Normal caliber of the common bile duct. 2. Punctate stone in the right mid kidney. No hydronephrosis.
[2018-11-07 15:29] VITALS: BP 124/71
[2018-11-07] MEDS ORDERED: D5 1/2NS 1000ml IV ONE (17:35)
[2018-11-07] MEDS: Promethazine HCl 25 MG in NS 55 ML IV PRN (18:55)
[2018-11-07 20:00] VITALS: BP 131/75
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
[2018-11-07] MEDS ORDERED: Miralax 17gm pkt ORAL PRN (21:00)
[2018-11-07] MEDS: Terazosin 1mg cap ORAL SCH (21:35)
[2018-11-07] MEDS: Heparin 5000 units/ml inj SUBQ SCH (21:36)
[2018-11-08 01:00] VITALS: BP 127/74
[2018-11-08] MEDS: Promethazine HCl 25 MG in NS 55 ML IV PRN (03:42)
[2018-11-08] MEDS: Morphine Sulfate 2mg/ml Inj IVP PRN ×3 (03:58→23:07)
[2018-11-08 04:00] VITALS: BP 132/77
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
[2018-11-08 08:00] VITALS: BP 134/69
[2018-11-08 08:13] LABS: BASOPHILS % (AUTO) 0.5 % (0.0-2.0); EOSINOPHILS % (AUTO) 0.2 % (0.0-3.0); HEMATOCRIT 41.8 % (42.0-52.0); HEMOGLOBIN 13.8 G/DL (14.2-18.0); LYMPHOCYTES % (AUTO) 15.7 % (20.0-45.0); MEAN CORPUSCULAR VOLUME 81 FL (80-99); MONOCYTES % (AUTO) 7.8 % (1.0-10.0); NEUTROPHILS % (AUTO) 75.8 % (45.0-75.0); PLATELET COUNT 175 K/UL (150-450); RED BLOOD COUNT 5.15 M/UL (4.70-6.10); RED CELL DISTRIBUTION WIDTH 11.1 % (11.6-14.8); WHITE BLOOD COUNT 8.6 K/UL (4.8-10.8)
[2018-11-08 08:29] LABS: ALANINE AMINOTRANSFERASE 12 U/L (12-78); ALBUMIN 3.5 G/DL (3.4-5.0); ALBUMIN/GLOBULIN RATIO 0.7 (1.0-2.7); ALKALINE PHOSPHATASE 70 U/L (46-116); AMYLASE 46 U/L (25-115); ANION GAP 12 mmol/L (5-15); ASPARTATE AMINO TRANSFERASE 16 U/L (15-37); BILIRUBIN,TOTAL 0.7 MG/DL (0.2-1.0); BLOOD UREA NITROGEN 2 mg/dL (7-18); CALCIUM 9.4 MG/DL (8.5-10.1); CARBON DIOXIDE 26 MMOL/L (21-32); CHLORIDE 101 MMOL/L (98-107); CREATININE 0.7 MG/DL (0.55-1.30); POTASSIUM 3.6 MMOL/L (3.5-5.1); SODIUM 138 MMOL/L (136-145)
[2018-11-08] MEDS: Docusate 100mg cap ORAL SCH ×2 (08:46→17:14)
[2018-11-08] MEDS: Pantoprazole Inj IV SCH (08:46)
[2018-11-08] MEDS: Lactulose 10gm/15ml UDC ORAL SCH ×4 (08:46→17:22)
[2018-11-08] MEDS: Venlafaxine 25mg tab ORAL SCH ×3 (08:46→17:14)
[2018-11-08] MEDS: Heparin 5000 units/ml inj SUBQ SCH ×2 (08:48→20:46)
[2018-11-08 12:00] VITALS: BP 128/75
[2018-11-08] MEDS: D5 1/2NS 1,000 ML IV SCH (15:08)
[2018-11-08 16:00] VITALS: BP 127/78
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
[2018-11-08 20:00] VITALS: BP 152/76
[2018-11-08] MEDS: Terazosin 1mg cap ORAL SCH (20:45)
[2018-11-09] VITALS: BP 120/76
[2018-11-09] MEDS: Morphine Sulfate 2mg/ml Inj IVP PRN ×3 (02:53→12:21)
[2018-11-09] MEDS: D5 1/2NS 1,000 ML IV SCH ×2 (02:55→17:33)
[2018-11-09 04:00] VITALS: BP 129/83
[2018-11-09 06:26] LABS: BASOPHILS % (AUTO) 0.8 % (0.0-2.0); EOSINOPHILS % (AUTO) 0.3 % (0.0-3.0); HEMOGLOBIN 13.3 G/DL (14.2-18.0); MEAN CORPUSCULAR VOLUME 81 FL (80-99); MONOCYTES % (AUTO) 9.5 % (1.0-10.0); NEUTROPHILS % (AUTO) 69.4 % (45.0-75.0); PLATELET COUNT 158 K/UL (150-450); RED BLOOD COUNT 4.91 M/UL (4.70-6.10); RED CELL DISTRIBUTION WIDTH 10.9 % (11.6-14.8); WHITE BLOOD COUNT 7.2 K/UL (4.8-10.8)
[2018-11-09 06:52] LABS: ANION GAP 9 mmol/L (5-15); BLOOD UREA NITROGEN 3 mg/dL (7-18); CARBON DIOXIDE 28 MMOL/L (21-32); CHLORIDE 100 MMOL/L (98-107); CREATININE 0.7 MG/DL (0.55-1.30); POTASSIUM 3.5 MMOL/L (3.5-5.1); SODIUM 137 MMOL/L (136-145)
[2018-11-09 08:00] VITALS: BP 132/97
[2018-11-09] MEDS: Pantoprazole Inj IV SCH (08:23)
[2018-11-09] MEDS: Heparin 5000 units/ml inj SUBQ SCH ×2 (08:24→21:05)
[2018-11-09] MEDS: Venlafaxine 25mg tab ORAL SCH ×3 (08:25→17:33)
[2018-11-09] MEDS: Lactulose 10gm/15ml UDC ORAL SCH ×3 (08:39→17:34)
[2018-11-09] MEDS: Docusate 100mg cap ORAL SCH ×2 (08:39→17:34)
[2018-11-09 12:00] VITALS: BP 108/67
--- NOTE | 2018-11-09 12:05 | GI Progress Note ---
Assessment/Plan Problems: (1) Nausea ICD Codes: R11.0 - Nausea SNOMED: 562747418 (2) Limited mobility in bed SNOMED: 3675511 (3) Abdominal pain ICD Codes: R10.9 - Unspecified abdominal pain SNOMED: 80267358 (4) UTI (urinary tract infection) ICD Codes: N39.0 - Urinary tract infection, site not specified SNOMED: 06343767 Qualifiers: Qualified Codes: N39.0 - Urinary tract infection, site not specified Status: stable Status Narrative Discussed with Dr. Malhotra. Assessment/Plan US reviewed, unremarkable abd pain possibly from UTI abx bowel regimen zofran prn fu labs The patient was seen and examined at bedside and all new and available data was reviewed in the patients chart. I agree with the above findings, impression and plan. (Patient seen earlier today. Signature stamp does not reflect patient encounter time.). - Reginaldo Malhotra MD Subjective Gastrointestinal/Abdominal: Reports: nausea Objective Last 24 Hour Vital Signs Date Time Temp Pulse Resp B/P (MAP) Pulse Ox O2 Delivery O2 Flow Rate FiO2 11/09/18 09:00 Room Air 11/09/18 08:54 98.1 11/09/18 08:00 98.1 61 18 132/97 (109) 97 11/09/18 04:00 98.1 63 19 129/83 (98) 95 11/09/18 00:00 98.4 73 19 120/76 (91) 100 11/08/18 21:00 Room Air 11/08/18 20:00 98.6 65 19 152/76 (101) 99 11/08/18 16:00 97.3 81 24 127/78 (94) 97 Intake and Output 11/08/18 11/09/18 19:00 07:00 Intake Total 2275 ml 725 ml Output Total 2900 ml 1150 ml Balance -625 ml -425 ml Intake Oral 1600 ml 350 ml IV Total 675 ml 375 ml Output Urine Total 2900 ml 1150 ml # Bowel Movements 2 Laboratory Tests Test 11/09/18 05:45 White Blood Count 7.2 K/UL (4.8-10.8) Red Blood Count 4.91 M/UL (4.70-6.10) Hemoglobin 13.3 G/DL (14.2-18.0) L Hematocrit 40.0 % (42.0-52.0) L Mean Corpuscular Volume 81 FL (80-99) Mean Corpuscular Hemoglobin 27.0 PG (27.0-31.0) Mean Corpuscular Hemoglobin Concent 33.2 G/DL (32.0-36.0) Red Cell Distribution Width 10.9 % (11.6-14.8) L Platelet Count 158 K/UL (150-450) Mean Platelet Volume 8.8 FL (6.5-10.1) Neutrophils (%) (Auto) 69.4 % (45.0-75.0) Lymphocytes (%) (Auto) 20.0 % (20.0-45.0) Monocytes (%) (Auto) 9.5 % (1.0-10.0) Eosinophils (%) (Auto) 0.3 % (0.0-3.0) Basophils (%) (Auto) 0.8 % (0.0-2.0) Sodium Level 137 MMOL/L (136-145) Potassium Level 3.5 MMOL/L (3.5-5.1) Chloride Level 100 MMOL/L (98-107) Carbon Dioxide Level 28 MMOL/L (21-32) Anion Gap 9 mmol/L (5-15) Blood Urea Nitrogen 3 mg/dL (7-18) L Creatinine 0.7 MG/DL (0.55-1.30) Estimat Glomerular Filtration Rate > 60 mL/min (>60) Glucose Level 101 MG/DL (74-106) Calcium Level 9.0 MG/DL (8.5-10.1) Height (Feet): 6 Height (Inches): 0.00 Weight (Pounds): 190 General Appearance: alert Cardiovascular: normal rate Respiratory/Chest: normal breath sounds, no respiratory distress Abdominal Exam: soft Extremities: normal range of motion Herminia Small NP Nov 09, 2018 12:05
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
[2018-11-09 15:52] VITALS: BP 124/72
[2018-11-09 20:00] VITALS: BP 136/76
[2018-11-09] MEDS: Terazosin 1mg cap ORAL SCH (20:59)
[2018-11-10] VITALS: BP 118/74
[2018-11-10] MEDS: Morphine Sulfate 2mg/ml Inj IVP PRN ×4 (00:17→14:43)
[2018-11-10 04:00] VITALS: BP 102/70
[2018-11-10] MEDS: D5 1/2NS 1,000 ML IV SCH ×2 (04:24→20:08)
[2018-11-10 08:00] VITALS: BP 124/72
[2018-11-10] MEDS: Lactulose 10gm/15ml UDC ORAL SCH ×3 (08:26→17:27)
[2018-11-10] MEDS: Docusate 100mg cap ORAL SCH ×2 (08:26→17:26)
[2018-11-10] MEDS: Pantoprazole Inj IV SCH (08:26)
[2018-11-10] MEDS: Venlafaxine 25mg tab ORAL SCH ×3 (08:26→17:27)
[2018-11-10] MEDS: Heparin 5000 units/ml inj SUBQ SCH ×2 (08:30→20:15)
[2018-11-10] MEDS: Promethazine HCl 25 MG in NS 55 ML IV PRN (08:31)
[2018-11-10 08:59] LABS: BASOPHILS % (AUTO) 0.9 % (0.0-2.0); EOSINOPHILS % (AUTO) 0.8 % (0.0-3.0); HEMOGLOBIN 13.3 G/DL (14.2-18.0); LYMPHOCYTES % (AUTO) 27.8 % (20.0-45.0); MEAN CORPUSCULAR VOLUME 81 FL (80-99); MONOCYTES % (AUTO) 7.8 % (1.0-10.0); NEUTROPHILS % (AUTO) 62.8 % (45.0-75.0); PLATELET COUNT 155 K/UL (150-450); RED BLOOD COUNT 5.07 M/UL (4.70-6.10); RED CELL DISTRIBUTION WIDTH 11.1 % (11.6-14.8); WHITE BLOOD COUNT 5.7 K/UL (4.8-10.8)
[2018-11-10 09:26] LABS: ALANINE AMINOTRANSFERASE 10 U/L (12-78); ALBUMIN/GLOBULIN RATIO 0.7 (1.0-2.7); ALKALINE PHOSPHATASE 65 U/L (46-116); ANION GAP 12 mmol/L (5-15); ASPARTATE AMINO TRANSFERASE 15 U/L (15-37); BILIRUBIN,TOTAL 0.6 MG/DL (0.2-1.0); BLOOD UREA NITROGEN 2 mg/dL (7-18); CALCIUM 8.7 MG/DL (8.5-10.1); CARBON DIOXIDE 25 MMOL/L (21-32); CHLORIDE 99 MMOL/L (98-107); CREATININE 0.6 MG/DL (0.55-1.30); POTASSIUM 3.5 MMOL/L (3.5-5.1); SODIUM 136 MMOL/L (136-145)
[2018-11-10 09:29] LABS: PHOSPHORUS 3.6 MG/DL (2.5-4.9)
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
[2018-11-10 12:00] VITALS: BP 123/73
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
[2018-11-10 16:00] VITALS: BP 126/74
[2018-11-10 20:00] VITALS: BP 133/84
[2018-11-10] MEDS: Terazosin 1mg cap ORAL SCH (20:09)
[2018-11-11] VITALS: BP 127/77
[2018-11-11] MEDS: Morphine Sulfate 2mg/ml Inj IVP PRN ×3 (03:48→16:39)
[2018-11-11 04:00] VITALS: BP 122/70
[2018-11-11 07:33] LABS: BASOPHILS % (AUTO) 0.8 % (0.0-2.0); EOSINOPHILS % (AUTO) 0.5 % (0.0-3.0); HEMOGLOBIN 13.5 G/DL (14.2-18.0); LYMPHOCYTES % (AUTO) 26.1 % (20.0-45.0); MEAN CORPUSCULAR VOLUME 81 FL (80-99); MONOCYTES % (AUTO) 7.7 % (1.0-10.0); PLATELET COUNT 183 K/UL (150-450); RED BLOOD COUNT 5.04 M/UL (4.70-6.10); RED CELL DISTRIBUTION WIDTH 11.2 % (11.6-14.8); WHITE BLOOD COUNT 7.5 K/UL (4.8-10.8)
[2018-11-11 08:00] VITALS: BP 120/73
[2018-11-11 08:06] LABS: ALANINE AMINOTRANSFERASE 14 U/L (12-78); ALBUMIN 3.1 G/DL (3.4-5.0); ALBUMIN/GLOBULIN RATIO 0.7 (1.0-2.7); ALKALINE PHOSPHATASE 63 U/L (46-116); AMYLASE 50 U/L (25-115); ANION GAP 8 mmol/L (5-15); ASPARTATE AMINO TRANSFERASE 13 U/L (15-37); BILIRUBIN,TOTAL 0.5 MG/DL (0.2-1.0); BLOOD UREA NITROGEN 6 mg/dL (7-18); CALCIUM 8.8 MG/DL (8.5-10.1); CARBON DIOXIDE 31 MMOL/L (21-32); CHLORIDE 104 MMOL/L (98-107); CREATININE 0.6 MG/DL (0.55-1.30); PHOSPHORUS 3.7 MG/DL (2.5-4.9); POTASSIUM 3.2 MMOL/L (3.5-5.1); SODIUM 142 MMOL/L (136-145)
[2018-11-11] MEDS: Lactulose 10gm/15ml UDC ORAL SCH ×4 (08:36→17:50)
[2018-11-11] MEDS: Docusate 100mg cap ORAL SCH ×2 (08:36→17:50)
[2018-11-11] MEDS: Venlafaxine 25mg tab ORAL SCH ×3 (08:36→17:50)
[2018-11-11] MEDS: Heparin 5000 units/ml inj SUBQ SCH (08:38)
[2018-11-11] MEDS: D5 1/2NS 1,000 ML IV SCH (08:41)
[2018-11-11] MEDS ORDERED: Levofloxacin 500mg tab ORAL SCH (09:00)
[2018-11-11 12:00] VITALS: BP 140/80
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
[2018-11-11] MEDS ORDERED: DOCUSATE SODIU100 MG ORAL (15:31)
[2018-11-11] MEDS ORDERED: LEVAQUIN500 MG ORAL (15:32)
[2018-11-11] MEDS ORDERED: LACTULOSE20 GM/301 ORAL (15:32)
[2018-11-11] MEDS ORDERED: NITROFURANTOIN100 M2 ORAL ×2 (15:34→15:36)
[2018-11-11] MEDS ORDERED: PROTONIX40 MG ORAL (15:35)
[2018-11-11] MEDS ORDERED: TERAZOSIN HCL1 MG ORAL (15:37)
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
[2018-11-11 16:00] VITALS: BP 135/83
[2018-11-11] MEDS ORDERED: D5 1/2NS 1000ml IV ONE (16:56)
[2018-11-11 20:00] VITALS: BP 100/65
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
== END 2018-11-11 21:00 | disposition home health service (06) | DRG 720 ==
LOC: EDBD 03:46 → EMR 03:58 → 4E 05:10 → EDBEDREQ 05:55
DX: A41.9 Sepsis, unspecified organism (principal); G82.50 Quadriplegia, unspecified; N31.9 Neuromuscular dysfunction of bladder, unspecified; S14.155S Other incomplete lesion at C5 level of cervical spinal cord, sequela; N39.0 Urinary tract infection, site not specified; W34.00XS Accidental discharge from unspecified firearms or gun, sequela; J40 Bronchitis, not specified as acute or chronic; I10 Essential (primary) hypertension; B96.89 Other specified bacterial agents as the cause of diseases classified elsewhere; B95.2 Enterococcus as the cause of diseases classified elsewhere; B96.5 Pseudomonas (aeruginosa) (mallei) (pseudomallei) as the cause of diseases classified elsewhere
CPT/HCPCS: 36415; 51702; 71045; 74018; 76700; 80048; 80053; 81003; 82150; 82550; 83605; 83690; 83735; 83880; 84100; 84484; 85025; 85610; 85651; 85730; 86140; 86710; 87040; 87070; 87081; 87086; 87181; 87205; 93005; 96361; 96365; 96367; 96375; 97803; 99285; J2405

== ENCOUNTER 2019-03-27 09:03 | Emergency (ER) | payer OTHER ==
[~2019-03-27] VITALS: Ht 177.8 cm; Wt 72.6 kg
[~2019-03-27 09:03] MED LIST changes: +DOCUSATE SODIU100 MG ORAL; +LACTULOSE20 GM/301 ORAL; +PROTONIX40 MG ORAL
[2019-03-27] MEDS ORDERED: HYDROmorphone 1mg/ml Carpuject IM ONE (09:15)
--- NOTE | 2019-03-27 09:18 | Emergency Room Report ---
History of Present Illness General Chief Complaint: Pain Source: Patient, EMS Present Illness HPI Patient presents with reports that he feels he has a bladder infection patient wears a condom catheter on a chronic basis Also reported that he felt his pressure ulcer might be opening and having discomfort with that as well Denies any chest pain or shortness of breath Patient is quadriplegic and has nursing assistance and family assistance at home There was no documented fevers Patient denies any vomiting or diarrhea Discomfort in the telephone low back area is 3 out of 10, pressure sensation Allergies: Coded Allergies: No Known Allergies (Unverified , 05/05/13) Patient History Past Medical History: see triage record Pertinent Family History: none Reviewed Nursing Documentation: PMH: Agreed; PSxH: Agreed Nursing Documentation-PMH Past Medical History: No History, Except For Hx Cardiac Problems: No Hx Hypertension: Yes Hx Pacemaker: No Hx Asthma: No Hx COPD: No Hx Diabetes: No Hx Cancer: No Hx Gastrointestinal Problems: No Hx Dialysis: No - KIDNEY STONE Hx Cerebrovascular Accident: No Hx Seizures: No Hx Paralysis: Yes - quadriplegic Hx Peripheral Neuropathy: Yes Review of Systems All Other Systems: negative except mentioned in HPI Physical Exam Vital Signs Date Time Temp Pulse Resp B/P (MAP) Pulse Ox O2 Delivery O2 Flow Rate FiO2 03/27/19 09:02 97.2 73 18 98/62 96 Room Air Sp02 EP Interpretation: reviewed, normal General Appearance: well appearing, no apparent distress Head: normocephalic, atraumatic Eyes: bilateral eye PERRL, bilateral eye EOMI ENT: normal pharynx, no angioedema Neck: supple Respiratory: lungs clear, no retraction, no accessory muscle use Cardiovascular #1: regular rate, rhythm Gastrointestinal: non tender, soft Genitourinary: other - Condom catheter in place Musculoskeletal: other - Quadriplegia with bilateral hands flexed Neurologic: alert, oriented x3, responsive Skin: normal color, no rash, other - Patient is rolled to the side towards the left and the right lower back is evaluated there is no obvious fullness or palpable masses or fluctuance. There is evidence of a secondarily healed and scarred region in the pilonidal area, Lymphatic: no adenopathy Medical Decision Making Diagnostic Impression: Primary Impression: UTI (lower urinary tract infection) ER Course Patient presents with discomfort complaining that usually consistent with his flareup of UTI Patient has a condom catheter in place and has shown positive nitrites on multiple previous findings and exams patient was placed on antibiotics that appear appropriate from previous culture patient does not appear septic or toxic is afebrile hemodynamically stable feels improved after initial evaluation and stable for close outpatient follow-up Labs Test 03/27/19 09:20 White Blood Count 6.3 K/UL (4.8-10.8) Red Blood Count 5.51 M/UL (4.70-6.10) Hemoglobin 14.8 G/DL (14.2-18.0) Hematocrit 45.3 % (42.0-52.0) Mean Corpuscular Volume 82 FL (80-99) Mean Corpuscular Hemoglobin 26.8 PG (27.0-31.0) Mean Corpuscular Hemoglobin Concent 32.6 G/DL (32.0-36.0) Red Cell Distribution Width 12.3 % (11.6-14.8) Platelet Count 168 K/UL (150-450) Mean Platelet Volume 8.5 FL (6.5-10.1) Neutrophils (%) (Auto) 70.7 % (45.0-75.0) Lymphocytes (%) (Auto) 22.2 % (20.0-45.0) Monocytes (%) (Auto) 5.6 % (1.0-10.0) Eosinophils (%) (Auto) 0.7 % (0.0-3.0) Basophils (%) (Auto) 0.8 % (0.0-2.0) Urine Color Pale yellow Urine Appearance Cloudy Urine pH 6 (4.5-8.0) Urine Specific [place] 1.015 (1.005-1.035) Urine Protein 1+ (NEGATIVE) Urine Glucose (UA) Negative (NEGATIVE) Urine Ketones 4+ (NEGATIVE) Urine Blood 3+ (NEGATIVE) Urine Nitrite Positive (NEGATIVE) Urine Bilirubin Negative (NEGATIVE) Urine Urobilinogen Normal MG/DL (0.0-1.0) Urine Leukocyte Esterase 3+ (NEGATIVE) Urine RBC 5-10 /HPF (0 - 0) Urine WBC 30-40 /HPF (0 - 0) Urine Squamous Epithelial Cells None /LPF (NONE/OCC) Urine Bacteria Many /HPF (NONE) Urine Yeast Many /HPF (NONE) Sodium Level 137 MMOL/L (136-145) Potassium Level 3.8 MMOL/L (3.5-5.1) Chloride Level 98 MMOL/L (98-107) Carbon Dioxide Level 26 MMOL/L (21-32) Anion Gap 13 mmol/L (5-15) Blood Urea Nitrogen 8 mg/dL (7-18) Creatinine 0.7 MG/DL (0.55-1.30) Estimat Glomerular Filtration Rate > 60 mL/min (>60) Glucose Level 107 MG/DL (74-106) Calcium Level 9.5 MG/DL (8.5-10.1) Last Vital Signs Date Time Temp Pulse Resp B/P (MAP) Pulse Ox O2 Delivery O2 Flow Rate FiO2 03/27/19 09:02 97.2 73 18 98/62 96 Room Air Status: improved Disposition: HOME, SELF-CARE Condition: Improved Scripts Bacitracin Zinc* (BACITRACIN ZINC*) 1 Each Packet 1 APPLIC TOPIC THREE TIMES A DAY for 5 Days, PACKET Prov: Alivia Moore DO 03/27/19 Ciprofloxacin Hcl* (CIPROFLOXACIN HCL*) 500 Mg Tablet 500 MG ORAL Q12H, #14 TAB 0 Refills Prov: Alivia Moore DO 03/27/19 Referrals: NON PHYSICIAN (PCP) Additional Instructions: Patient is provided with the discharge instructions notified to follow up with primary doctor in the next 2-3 days otherwise return to the er with any worsening symptoms. Please note that this report is being documented using [employer] technology. This can lead to erroneous entry secondary to incorrect interpretation by the dictating instrument. Alivia Moore DO Mar 27, 2019 09:18
[2019-03-27 09:37] VITALS: BP 119/64
[2019-03-27 09:46] LABS: APPEARANCE,URINE CLOUDY; BILIRUBIN, URINE NEGATIVE (NEGATIVE); COLOR,URINE PALE YELLOW; GLUCOSE, URINE (UA) NEGATIVE (NEGATIVE); KETONES,URINE 4+ (NEGATIVE); LEUKOCYTE ESTERASE ,URINE 3+ (NEGATIVE); NITRITE,URINE POSITIVE (NEGATIVE); PH,URINE 6 (4.5-8.0); PROTEIN,URINE 1+ (NEGATIVE); UROBILINOGEN,URINE NORMAL MG/DL (0.0-1.0)
[2019-03-27 09:53] LABS: ANION GAP 13 mmol/L (5-15); BLOOD UREA NITROGEN 8 mg/dL (7-18); CALCIUM 9.5 MG/DL (8.5-10.1); CARBON DIOXIDE 26 MMOL/L (21-32); CHLORIDE 98 MMOL/L (98-107); CREATININE 0.7 MG/DL (0.55-1.30); POTASSIUM 3.8 MMOL/L (3.5-5.1); SODIUM 137 MMOL/L (136-145)
[2019-03-27 09:58] LABS: BASOPHILS % (AUTO) 0.8 % (0.0-2.0); EOSINOPHILS % (AUTO) 0.7 % (0.0-3.0); HEMATOCRIT 45.3 % (42.0-52.0); HEMOGLOBIN 14.8 G/DL (14.2-18.0); LYMPHOCYTES % (AUTO) 22.2 % (20.0-45.0); MEAN CORPUSCULAR VOLUME 82 FL (80-99); MONOCYTES % (AUTO) 5.6 % (1.0-10.0); NEUTROPHILS % (AUTO) 70.7 % (45.0-75.0); PLATELET COUNT 168 K/UL (150-450); RED BLOOD COUNT 5.51 M/UL (4.70-6.10); RED CELL DISTRIBUTION WIDTH 12.3 % (11.6-14.8); WHITE BLOOD COUNT 6.3 K/UL (4.8-10.8)
[2019-03-27 10:40] VITALS: BP 98/67
[2019-03-27 11:44] VITALS: BP 100/58
[2019-03-27] MEDS ORDERED: CIPROFLOXACIN500 M2 ORAL (12:24)
[2019-03-27] MEDS ORDERED: BACITRACIN ZIN1 EACH TOPIC (12:24)
[2019-03-27 13:23] VITALS: BP 100/58
== END 2019-03-27 13:40 | disposition home or self-care (01) ==
LOC: EDBD 09:03 → EMR 09:13
DX: N39.0 Urinary tract infection, site not specified (principal); G82.50 Quadriplegia, unspecified; M54.5 Low back pain; I10 Essential (primary) hypertension; G62.9 Polyneuropathy, unspecified; Z87.442 Personal history of urinary calculi
CPT/HCPCS: 36415; 80048; 81001; 85025; 87086; 87181; 96372; 99284; J1170

== ENCOUNTER 2019-03-30 20:02 | Inpatient (IN) | payer OTHER ==
[~2019-03-30] VITALS: Ht 180.3 cm; Wt 68.2 kg
[~2019-03-30 20:02] MED LIST changes: +BACITRACIN ZIN1 EACH TOPIC
--- NOTE | 2019-03-30 20:09 | NUR ---
ED Nurse Note: pt brought in by [facility] from home c/o pain on left side chest, right big toe and right leg, pt states he has been having pain for a while, hx kidney stone, pt reports he is supposed to removed kidney stone next month. pt states he has nausea and stated he vomited three times. pt AA&ox4, gcs=15, skin warm and dry, resp even and unlabored on RA, no active n/v/d at this time, vss, will cont monitor. NSR on local area network administrator.
--- NOTE | 2019-03-30 20:10 | NUR ---
ED Nurse Note: condom cath noted, pt states last changed was today. noted yellow urine. urine specimen obtained and sent to lab. pt states home health nurse comes and takes care of him.
[2019-03-30 20:30] VITALS: BP 138/76
[2019-03-30] MEDS ORDERED: Morphine Sulfate 4mg/ml Inj (IV USE ONLY) IVP ONE (20:45)
[2019-03-30 21:21] LABS: ANION GAP 17 mmol/L (5-15); BLOOD UREA NITROGEN 6 mg/dL (7-18); CALCIUM 9.5 MG/DL (8.5-10.1); CARBON DIOXIDE 22 MMOL/L (21-32); CHLORIDE 95 MMOL/L (98-107); CREATININE 0.8 MG/DL (0.55-1.30); POTASSIUM 3.7 MMOL/L (3.5-5.1); SODIUM 134 MMOL/L (136-145)
[2019-03-30 21:23] LABS: BASOPHILS % (AUTO) 0.8 % (0.0-2.0); EOSINOPHILS % (AUTO) 0.5 % (0.0-3.0); HEMATOCRIT 44.5 % (42.0-52.0); HEMOGLOBIN 14.6 G/DL (14.2-18.0); LYMPHOCYTES % (AUTO) 24.6 % (20.0-45.0); MEAN CORPUSCULAR VOLUME 82 FL (80-99); MONOCYTES % (AUTO) 6.6 % (1.0-10.0); NEUTROPHILS % (AUTO) 67.6 % (45.0-75.0); PLATELET COUNT 153 K/UL (150-450); RED BLOOD COUNT 5.44 M/UL (4.70-6.10); RED CELL DISTRIBUTION WIDTH 11.9 % (11.6-14.8); WHITE BLOOD COUNT 7.2 K/UL (4.8-10.8)
[2019-03-30 21:24] LABS: APPEARANCE,URINE CLEAR; BILIRUBIN, URINE NEGATIVE (NEGATIVE); COLOR,URINE PALE YELLOW; GLUCOSE, URINE (UA) NEGATIVE (NEGATIVE); KETONES,URINE 4+ (NEGATIVE); LEUKOCYTE ESTERASE ,URINE 2+ (NEGATIVE); NITRITE,URINE POSITIVE (NEGATIVE); PH,URINE 5 (4.5-8.0); PROTEIN,URINE 1+ (NEGATIVE); UROBILINOGEN,URINE NORMAL MG/DL (0.0-1.0)
[2019-03-30 21:30] VITALS: BP 118/73
--- NOTE | 2019-03-30 21:30 | NUR ---
ED Nurse Note: pt cleaned and changed. warm blanket provided for comfort.
[2019-03-30 21:31] LABS: INR 1.1 (0.9-1.1)
[2019-03-30 21:32] LABS: ALANINE AMINOTRANSFERASE 14 U/L (12-78); ALBUMIN 4.1 G/DL (3.4-5.0); ALBUMIN/GLOBULIN RATIO 0.9 (1.0-2.7); ALKALINE PHOSPHATASE 77 U/L (46-116); ASPARTATE AMINO TRANSFERASE 20 U/L (15-37); CREATINE KINASE 374 U/L (26-308)
[2019-03-30] MEDS ORDERED: Piperacillin/Tazobactam 3.375 GM in NS 110 ML IVPB ONE (21:45)
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
--- NOTE | 2019-03-30 22:10 | NUR ---
ED Nurse Note: noted pressure ulcer stg 1 healing, with redness, on sacral area. picture taken.
--- NOTE | 2019-03-30 22:50 | NUR ---
ED Nurse Note: pt c/o pain on low back, ERMD notified.
[2019-03-30] MEDS ORDERED: Hydromorphone 0.5mg/0.5ml inj IVP ONE (23:00)
--- NOTE | 2019-03-30 23:00 | NUR ---
ED Nurse Note: pt repositioned, extra warm blanket provided for comfort, vss, will cont monitor.
[2019-03-30 23:30] VITALS: BP 120/76
--- NOTE | 2019-03-30 23:52 | NUR ---
ED Nurse Note: report given to MELISA Robertson from [facility].
[2019-03-31] VITALS: BP 113/66
--- NOTE | 2019-03-31 00:05 | NUR ---
ED Nurse Note: PT transferred to [facility], all belongings sent w/ pt, endorsed care to Amad RN. pt vss, iv intact, resp even and unlabored on RA.
--- NOTE | 2019-03-31 00:15 | NUR ---
NURSE NOTES: Pt is admitted from ER in stable condition, vitals stable. Room air. Pt is awake ,alert and verbal. Pt is bed bound,quadriplegic. Report received from Ysabel DOSHI RN. Dx UTI under Dr. Hdz. On physical assessment pt has sacral stage 2 old healing wound, picture was taken. Pt reports pain 8/10. pain medication was given in ER. Pt's belonging list checked, and verified with pt. Pt oriented to the unit. Dr. Hdz called for admission orders, message left with Artery for doctor to call back with admission orders. Bed locked low in position, side rails up, call light within reach. Bed alarm on, fall precaution implemented. Pt will be monitored. Addendum: 03/31/19 at 334 by JASMIN APODACA RN RN Tosin Chavira RN will be assisting in the care of patient. Addendum: 03/31/19 at 033 by JASMIN APODACA RN RN Tosin Chavira RN will be assisting in the care of patient.
[2019-03-31 04:00] VITALS: BP 123/71
[2019-03-31] MEDS: D5 1/2NS 1,000 ML IV SCH ×2 (05:05→20:56)
[2019-03-31] MEDS: Morphine Sulfate 2mg/ml Inj(IV/IM USE ONLY) IVP PRN ×3 (05:22→22:22)
--- NOTE | 2019-03-31 06:00 | NUR ---
NURSE NOTES: Admitting orders received from Dr. Hdz. D5 1/2Ns running at 60ml/hr. Wound dressing applied, wound assessment performed. Bilat heel elevated on pillow, Optifoam applied to bilat heels for preventative measure. Morphine 2mg IVp given as ordered PRN. Pt is calm in bed. Pt was turned at least q2hrs.
--- NOTE | 2019-03-31 07:15 | NUR ---
HAND-OFF: Report given to Siobhan Gillette. Pt is in bed, asleep. No acute distress noted. Fall risk communicated.
[2019-03-31 07:18] LABS: BASOPHILS % (AUTO) 0.8 % (0.0-2.0); EOSINOPHILS % (AUTO) 0.6 % (0.0-3.0); HEMATOCRIT 41.6 % (42.0-52.0); HEMOGLOBIN 13.7 G/DL (14.2-18.0); LYMPHOCYTES % (AUTO) 28.6 % (20.0-45.0); MEAN CORPUSCULAR VOLUME 83 FL (80-99); MONOCYTES % (AUTO) 8.6 % (1.0-10.0); NEUTROPHILS % (AUTO) 61.4 % (45.0-75.0); PLATELET COUNT 146 K/UL (150-450); RED BLOOD COUNT 5.01 M/UL (4.70-6.10); RED CELL DISTRIBUTION WIDTH 12.4 % (11.6-14.8); WHITE BLOOD COUNT 6.7 K/UL (4.8-10.8)
[2019-03-31 07:20] LABS: ANION GAP 14 mmol/L (5-15); BLOOD UREA NITROGEN 6 mg/dL (7-18); CALCIUM 8.7 MG/DL (8.5-10.1); CARBON DIOXIDE 20 MMOL/L (21-32); CHLORIDE 101 MMOL/L (98-107); CREATININE 0.7 MG/DL (0.55-1.30); POTASSIUM 3.7 MMOL/L (3.5-5.1); SODIUM 135 MMOL/L (136-145)
--- NOTE | 2019-03-31 07:44 | NUR ---
NURSE NOTES: Received report from MELISA Friedman. Patient in bed resting, no active s/s cardiac, respiratory distress noticed at this time, denies pain at this time. IV on right AC 20G asymptomatic, patent, intact, IV fluid running at prescribed rate. Condom catheter on, draining well to gravity. AOx4, patient on room air. Bed in lowest position, side rails upx3, call light within reach. Will continue to monitor.
[2019-03-31 08:00] VITALS: BP 106/66
--- NOTE | 2019-03-31 09:00 | NUR ---
NURSE NOTES: Medication for 0900 pulled out from rita, professor from [employer] and student nurse stated they will scan and administer medication under their name, called pharmacist for clarification, per pharmacist it is okay unless it is not controlled medication.
[2019-03-31] MEDS: Docusate 100mg cap ORAL SCH ×2 (09:01→17:12)
[2019-03-31] MEDS: Venlafaxine 25mg tab ORAL SCH ×3 (09:03→17:12)
[2019-03-31] MEDS: Heparin 5000 units/ml inj SUBQ SCH ×2 (09:10→20:54)
--- NOTE | 2019-03-31 11:20 | Diagnostic Imaging Report ---
Indication: Chest pain Technique: One view of the chest Comparison: 11/11/2018 Findings: The lungs and pleural spaces are clear. Heart size is normal. No significant interim change Impression: Negative
[2019-03-31 12:00] VITALS: BP 122/76
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
--- NOTE | 2019-03-31 13:42 | NUR ---
NURSE NOTES: Dr. Mckinney made aware patient c/o N/V, vomited one time scant amount. Per Dr. Mckinney, Zofran 4 mg, IV q6h prn, wound consult with Dr. Porter for DTI on sacral area. Order entered, noted, carried out. Will continue to monitor.
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
--- NOTE | 2019-03-31 14:52 | NUR ---
RD ASSESSMENT & RECOMMENDATIONS SEE CARE ACTIVITY FOR COMPLETE ASSESSMENT DAILY ESTIMATED NEEDS: Needs based on wound, quadraplegia, 66kg 25-30 kcals/kg 3400-9815 total kcals 1.25-1.5 g protein/kg 83-99 g total protein 25-30 mL/kg total fluid mLs NUTRITION DIAGNOSIS: * Increased kcal/prot intake needs R/T wound healing as evidenced by pt admitted w/ multiple pressure wounds, refer to WC eval. CURRENT DIET: Regular PO DIET RECOMMENDATIONS: REGULAR/ texture as tolerated ADDITIONAL RECOMMENDATIONS: * Calibrated bedscale wt for accurate CBW Conflicting wts: Bed scale 145.6# vs EMR 150# * Wound care: add MVI x 1, Vit C 250mg BID, Ministerio 1pkt BID * Ensure Enlive 1 bottle daily * Monitor PO intake, need for additional snacks/ supplements * Ensure Enlive 1 bottle BID w/ continue variable PO intake
--- NOTE | 2019-03-31 15:43 | NUR ---
NURSE NOTES:WOUND CARE NOTES:Pt presented on admission with darker skin tone to sacrum with marginal erythema along borders (L)8cm x (W)11cm. An area of induration within wound bed noted to R sacrum (L)3cm x (W)2cm.Pt complained of tenderness when minimally palpated. Just inferior,but in close proximity shearing noted. [place] but dry epithelial noted to sacrococcygeal. Pt verbalized having a pressure injury that has been healing. Non-blanchable erythema without fluctuance or erythema noted to R and L heels. No other areas of skin breakdown noted. Tx.Plan: Apply Triad to Sacrum. Cover with Optifoam drsg. Change every 7 days and prn. Apply Cavilon Skin Barrier to Both Heels .Cover each Heel with Optifoam drsgs. Change every 7 days and prn. APM/LUCILA Mattress overlay. Reposition at least every 2 hours or as tolerated. Off-load heels with Pillow.
[2019-03-31 16:00] VITALS: BP 124/69
--- NOTE | 2019-03-31 16:39 | NUR ---
*-* INSURANCE *-* CLINICALS AND REVIEWS HAVE BEEN FAXED TO: [employer] REF#[id number] NCM:ROYA DOYLE [phone] [phone]
--- NOTE | 2019-03-31 18:31 | Consultation ---
Consult Note Consult Note # [id number] Viraj Rivero MD March 31, 2019 18:31
--- NOTE | 2019-03-31 19:19 | NUR ---
HAND-OFF: Report given to MEILSA Welch. Patient in stable condition.
[2019-03-31] MEDS ORDERED: D5 1/2NS 1000ml IV ONE (19:20)
--- NOTE | 2019-03-31 19:20 | NUR ---
NURSE NOTES: Patient in bed resting, in semi fowlers position. no active s/sx cardiac, respiratory distress noticed at this time, denies pain at this time. IV on right AC 20G asymptomatic, patent, intact, IV fluid running at prescribed rate. Condom catheter on, draining well to gravity. AOx4, patient on room air. Bed in lowest position, side rails upx3, call light within reach. Will continue to monitor.
[2019-03-31 20:00] VITALS: BP 142/86
--- NOTE | 2019-03-31 20:00 | History and Physical Report ---
DATE OF ADMISSION: 03/30/2019 TIME SEEN: 9:00 a.m. DIRECTOR INBOUND SALES: 1. Rut Mckinney M.D. 2. Viraj Rivero M.D. 3. Griffin Leon M.D. CHIEF COMPLAINT: Quadriplegia, sacral decubitus, UTI. BRIEF HISTORY: This is a 43-year-old male, who lives at home with history of quadriplegia since 1996. The patient apparently developed a wound in the back, getting worse, came to [place] ER, diagnosed as above and also UTI, and admitted to medical floor for further treatment. Currently, calm in bed, no complaint. No chest pain, shortness of breath. No nausea, vomiting, or diarrhea. PAST MEDICAL HISTORY: Includes spinal cord injury, quadriplegia since 1996, kidney stone. PAST SURGICAL HISTORY: None. MEDICATIONS: Include terazosin, baclofen, gabapentin, pantoprazole, heparin, Zosyn, hydromorphone, and morphine. ALLERGIES: Denies. SOCIAL HISTORY: Positive smoking. No alcohol. Positive marijuana use. PHYSICAL EXAMINATION: GENERAL: Calm in bed, oriented x3, no acute distress. VITAL SIGNS: Temperature is 96, pulse 72, respiratory rate , blood pressure 106/66. CARDIOVASCULAR: No murmurs. LUNGS: Distant and clear. ABDOMEN: Bowel sounds positive. Nontender. Nondistended. EXTREMITIES: No cyanosis or edema. NEUROLOGIC: The patient is flaccid below mid chest and wound dressing clean and dry. LABORATORY AND DIAGNOSTIC DATA: CBC is normal. BMP shows sodium 135, CO2 20, BUN 6. Troponin 0.019. INR is 1.1 and PTT is 30. Urinalysis show 2+ leukocyte esterase. ASSESSMENT: 1. Quadriplegia. 2. UTI. 3. Decubitus ulcer. PLAN: 1. Antibiotics per Infectious Diseases. 2. Wound care. 3. Pain control. 4. Dietary followup. 5. PT, dietary evaluation, check labs in the morning. 6. We will continue to follow the patient. Nba Hdz D.O. DR: Luisa JOB#: [id number] CC:
[2019-03-31] MEDS: Terazosin 1mg cap ORAL SCH (20:54)
--- NOTE | 2019-03-31 21:11 | NUR ---
NURSE NOTES: Heparin held as platelets were slightly low. Charge nurse aware
[2019-04-01] VITALS: BP 152/76
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
[2019-04-01] MEDS: Morphine Sulfate 2mg/ml Inj(IV/IM USE ONLY) IVP PRN ×3 (02:34→17:50)
[2019-04-01 04:00] VITALS: BP 118/76
[2019-04-01 06:51] VITALS: BP 118/76
--- NOTE | 2019-04-01 07:41 | NUR ---
HAND-OFF: Report given to MELISA Eugene
[2019-04-01 07:42] LABS: BASOPHILS % (AUTO) 0.5 % (0.0-2.0); EOSINOPHILS % (AUTO) 0.3 % (0.0-3.0); HEMATOCRIT 43.3 % (42.0-52.0); HEMOGLOBIN 14.2 G/DL (14.2-18.0); LYMPHOCYTES % (AUTO) 22.1 % (20.0-45.0); MEAN CORPUSCULAR VOLUME 83 FL (80-99); MONOCYTES % (AUTO) 6.4 % (1.0-10.0); NEUTROPHILS % (AUTO) 70.7 % (45.0-75.0); PLATELET COUNT 150 K/UL (150-450); RED BLOOD COUNT 5.24 M/UL (4.70-6.10); RED CELL DISTRIBUTION WIDTH 12.2 % (11.6-14.8); WHITE BLOOD COUNT 6.1 K/UL (4.8-10.8)
--- NOTE | 2019-04-01 07:45 | NUR ---
NURSE NOTES: Patient received resting in bed. Alert and orientedx4, breathing unlabored on room air. Denies SOB or pain at this time. RN repositioned the patient per his request. Condom catheter is secured. IV site on right arm patent and intact with fluids running at 60cc/hr. Bed in locked in lowest position, call light placed within reach. Will continue to monitor.
[2019-04-01] MEDS: Docusate 100mg cap ORAL SCH ×2 (08:11→17:39)
[2019-04-01] MEDS: Venlafaxine 25mg tab ORAL SCH ×3 (08:11→17:40)
[2019-04-01 08:18] LABS: ANION GAP 13 mmol/L (5-15); BLOOD UREA NITROGEN 3 mg/dL (7-18); CARBON DIOXIDE 22 MMOL/L (21-32); CHLORIDE 97 MMOL/L (98-107); CREATININE 0.7 MG/DL (0.55-1.30); POTASSIUM 3.7 MMOL/L (3.5-5.1); SODIUM 132 MMOL/L (136-145)
[2019-04-01] MEDS: Heparin 5000 units/ml inj SUBQ SCH ×2 (08:19→21:37)
--- NOTE | 2019-04-01 11:14 | NUR ---
*-* INSURANCE *-* CLINICALS HAVE BEEN FAXED TO: [facility] REF#[id number] NCM:ROYA DOYLE [phone] [phone]
[2019-04-01 12:00] VITALS: BP 127/81
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
--- NOTE | 2019-04-01 13:53 | General Progress Note ---
Assessment/Plan Problem List: (1) UTI (lower urinary tract infection) ICD Codes: N39.0 - Urinary tract infection, site not specified SNOMED: 0161673 (2) Quadriplegia ICD Codes: G82.50 - Quadriplegia, unspecified SNOMED: 56040412 (3) Sacral decubitus ulcer ICD Codes: L89.159 - Pressure ulcer of sacral region, unspecified stage SNOMED: 264698912 Qualifiers: Qualified Codes: L89.152 - Pressure ulcer of sacral region, stage 2 Status: unchanged Assessment/Plan: pt diet pain control abx debride prn cbc bmp am Subjective Constitutional: Reports: weakness Allergies: Coded Allergies: No Known Allergies (Unverified , 05/05/13) All Systems: reviewed and negative except above Subjective calm sleepy in bed Objective Last 24 Hour Vital Signs Date Time Temp Pulse Resp B/P (MAP) Pulse Ox O2 Delivery O2 Flow Rate FiO2 04/01/19 12:00 98.0 75 19 127/81 (96) 98 04/01/19 09:00 Room Air 04/01/19 06:51 97.4 67 18 118/76 (90) 97 04/01/19 03:04 98.6 04/01/19 00:00 98.6 81 20 152/76 (101) 100 03/31/19 21:00 Room Air 03/31/19 20:00 99.3 67 18 142/86 (104) 100 03/31/19 16:00 98.1 66 17 124/69 (87) 100 Intake and Output 03/31/19 04/01/19 19:00 07:00 Intake Total 180 ml Output Total 1000 ml Balance -820 ml Intake Oral 120 ml IV Total 60 ml Output Urine Total 1000 ml Laboratory Tests 04/01/19 06:12: White Blood Count 6.1, Red Blood Count 5.24, Hemoglobin 14.2, Hematocrit 43.3, Mean Corpuscular Volume 83, Mean Corpuscular Hemoglobin 27.0, Mean Corpuscular Hemoglobin Concent 32.7, Red Cell Distribution Width 12.2, Platelet Count 150, Mean Platelet Volume 9.3, Neutrophils (%) (Auto) 70.7, Lymphocytes (%) (Auto) 22.1, Monocytes (%) (Auto) 6.4, Eosinophils (%) (Auto) 0.3, Basophils (%) (Auto ) 0.5, Sodium Level 132L, Potassium Level 3.7, Chloride Level 97L, Carbon Dioxide Level 22, Anion Gap 13, Blood Urea Nitrogen 3L, Creatinine 0.7, Estimat Glomerular Filtration Rate > 60, Glucose Level 95, Calcium Level 9.0 Height (Feet): 5 Height (Inches): 11.00 Weight (Pounds): 150 General Appearance: lethargic EENT: normal ENT inspection Neck: normal alignment Cardiovascular: normal peripheral pulses, normal rate, regular rhythm Respiratory/Chest: chest wall non-tender, lungs clear, normal breath sounds Abdomen: normal bowel sounds, non tender, soft Extremities: normal inspection Edema: no edema noted Arm (L), no edema noted Arm (R), no edema noted Leg (L), no edema noted Leg (R), no edema noted Pedal (L), no edema noted Pedal (R), no edema noted Generalized Neurologic: motor weakness Skin: normal pigmentation, warm/dry Nba Hdz DO April 01, 2019 13:53
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
--- NOTE | 2019-04-01 14:22 | Cardiology Report ---
APPROVED REPORT EKG Measurement Heart [id number] SD [id number] [id number] Normal sinus rhythm with sinus arrhythmia Right atrial enlargement Borderline ECG
[2019-04-01] MEDS: D5 1/2NS 1,000 ML IV SCH (14:55)
--- NOTE | 2019-04-01 15:54 | NUR ---
HAND-OFF: Report given to Edna VINCENT.
[2019-04-01 16:00] VITALS: BP 136/83
--- NOTE | 2019-04-01 16:28 | NUR ---
NURSE NOTES: Received report from Jacky charge nurse, on room air, no sign of distress and shortness of breath; no sign of chest pain; IV Right-ac fluid running; side rails up x2, breaks engaged, bed at lowest position. will keep monitoring.
--- NOTE | 2019-04-01 17:08 | NUR ---
VALET RUNNERCONTRACTING ENGINEER SI:UTI . DECUBITUS ULCER VS: BP 152/76, P 64, T 97.4, RR 20, SpO2 97 Na 132, BUN 3 IS:ZOFRAN 4mg BACLOFEN 10mg GABAPENTIN 100mg PROTONIX 40mg TIZANIDINE HCI 4mg EFFEXOR 25mg D5/NS x1L IV MED/SURG STATUS
--- NOTE | 2019-04-01 19:48 | NUR ---
HAND-OFF: Report given to MELISA Santiago.
--- NOTE | 2019-04-01 19:50 | NUR ---
NURSE NOTES: Pt on room air, no sign of distress ashortness of breath; no sign of chest pain; IV Right-ac fluid running; side rails up x2, breaks engaged, bed at lowest position. will keep monitoring. Addendum: 04/02/19 at 0806 by Rebekah Santiago RN brakes engaged
[2019-04-01 20:00] VITALS: BP 129/80
[2019-04-01] MEDS: Terazosin 1mg cap ORAL SCH (21:36)
[2019-04-02] VITALS: BP 123/78
[2019-04-02 04:00] VITALS: BP 127/70
[2019-04-02] MEDS: Morphine Sulfate 2mg/ml Inj(IV/IM USE ONLY) IVP PRN ×2 (04:45→20:48)
[2019-04-02] MEDS: D5 1/2NS 1,000 ML IV SCH (06:00)
[2019-04-02 07:31] LABS: ANION GAP 14 mmol/L (5-15); BASOPHILS % (AUTO) 0.8 % (0.0-2.0); BLOOD UREA NITROGEN 3 mg/dL (7-18); CALCIUM 9.1 MG/DL (8.5-10.1); CARBON DIOXIDE 24 MMOL/L (21-32); CHLORIDE 98 MMOL/L (98-107); CREATININE 0.7 MG/DL (0.55-1.30); EOSINOPHILS % (AUTO) 0.4 % (0.0-3.0); HEMATOCRIT 44.6 % (42.0-52.0); HEMOGLOBIN 14.6 G/DL (14.2-18.0); LYMPHOCYTES % (AUTO) 29.6 % (20.0-45.0); MEAN CORPUSCULAR VOLUME 82 FL (80-99); MONOCYTES % (AUTO) 9.5 % (1.0-10.0); NEUTROPHILS % (AUTO) 59.7 % (45.0-75.0); PLATELET COUNT 147 K/UL (150-450); POTASSIUM 3.4 MMOL/L (3.5-5.1); RED BLOOD COUNT 5.43 M/UL (4.70-6.10); RED CELL DISTRIBUTION WIDTH 12.2 % (11.6-14.8); SODIUM 136 MMOL/L (136-145); WHITE BLOOD COUNT 6.4 K/UL (4.8-10.8)
[2019-04-02 08:00] VITALS: BP 123/73
--- NOTE | 2019-04-02 08:05 | NUR ---
HAND-OFF: Report given to MELISA Eugene.
--- NOTE | 2019-04-02 08:14 | NUR ---
NURSE NOTES: Patient received resting in bed. Alert and oriented. Breathing unlabored on room air. Denies pain or discomfort at this time. IV site patent and intact. Bed locked and adjusted to patient's comfort and safety. Call light placed within reach. Will continue to monitor.
[2019-04-02] MEDS: Docusate 100mg cap ORAL SCH ×2 (08:52→17:25)
[2019-04-02] MEDS: Venlafaxine 25mg tab ORAL SCH ×3 (08:52→17:25)
[2019-04-02] MEDS: Heparin 5000 units/ml inj SUBQ SCH ×2 (09:00→20:34)
--- NOTE | 2019-04-02 09:11 | General Progress Note ---
Assessment/Plan Problem List: (1) UTI (lower urinary tract infection) ICD Codes: N39.0 - Urinary tract infection, site not specified SNOMED: 0356490 (2) Quadriplegia ICD Codes: G82.50 - Quadriplegia, unspecified SNOMED: 02767102 (3) Sacral decubitus ulcer ICD Codes: L89.159 - Pressure ulcer of sacral region, unspecified stage SNOMED: 523596116 Qualifiers: Qualified Codes: L89.152 - Pressure ulcer of sacral region, stage 2 Status: stable, progressing Assessment/Plan: pt diet pain control abx debride prn cbc bmp am ddc plan snf if all clear Subjective Constitutional: Reports: weakness Allergies: Coded Allergies: No Known Allergies (Unverified , 05/05/13) All Systems: reviewed and negative except above Subjective calm sleepy in bed Objective Last 24 Hour Vital Signs Date Time Temp Pulse Resp B/P (MAP) Pulse Ox O2 Delivery O2 Flow Rate FiO2 04/02/19 05:15 98.1 04/02/19 04:00 98.5 70 18 127/70 (89) 97 04/02/19 00:00 98.1 66 18 123/78 (93) 98 04/01/19 21:00 Room Air 04/01/19 20:00 98.4 66 20 129/80 (96) 100 04/01/19 18:39 97.8 04/01/19 16:00 97.8 64 18 136/83 (100) 98 04/01/19 12:00 98.0 75 19 127/81 (96) 98 Intake and Output 04/01/19 04/02/19 19:00 07:00 Intake Total 1300 ml Output Total 2200 ml 850 ml Balance -900 ml -850 ml Intake Oral 1060 ml IV Total 240 ml Output Urine Total 2200 ml 850 ml Laboratory Tests 04/02/19 06:02: White Blood Count 6.4, Red Blood Count 5.43, Hemoglobin 14.6, Hematocrit 44.6, Mean Corpuscular Volume 82, Mean Corpuscular Hemoglobin 26.8L, Mean Corpuscular Hemoglobin Concent 32.6, Red Cell Distribution Width 12.2, Platelet Count 147L, Mean Platelet Volume 9.7, Neutrophils (%) (Auto) 59.7, Lymphocytes (%) (Auto) 29.6, Monocytes (%) (Auto) 9.5, Eosinophils (%) (Auto) 0.4, Basophils (%) (Auto ) 0.8, Sodium Level 136, Potassium Level 3.4L, Chloride Level 98, Carbon Dioxide Level 24, Anion Gap 14, Blood Urea Nitrogen 3L, Creatinine 0.7, Estimat Glomerular Filtration Rate > 60, Glucose Level 107H, Calcium Level 9.1 Height (Feet): 5 Height (Inches): 11.00 Weight (Pounds): 150 General Appearance: lethargic EENT: normal ENT inspection Neck: normal alignment Cardiovascular: normal peripheral pulses, normal rate, regular rhythm Respiratory/Chest: chest wall non-tender, lungs clear, normal breath sounds Abdomen: normal bowel sounds, non tender, soft Extremities: normal inspection Edema: no edema noted Arm (L), no edema noted Arm (R), no edema noted Leg (L), no edema noted Leg (R), no edema noted Pedal (L), no edema noted Pedal (R), no edema noted Generalized Neurologic: motor weakness Skin: normal pigmentation, warm/dry Nba Hdz DO April 02, 2019 09:11
--- NOTE | 2019-04-02 10:52 | NUR ---
*-* INSURANCE *-* UPDATED CLINICALS AND REVIEWS HAVE BEEN FAXED TO: [facility] REF#[id number] NCM:ROYA DOYLE [phone] [phone]
[2019-04-02 12:00] VITALS: BP 125/68
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
--- NOTE | 2019-04-02 13:19 | NUR ---
P.T Note: P.T evaluation attempted however refused to participate to c/o not feeling well secondary to lack of sleep. Will reattempt tomorrow.
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
[2019-04-02] MEDS ORDERED: D5 1/2NS 1000ml IV ONE (13:52)
[2019-04-02 16:00] VITALS: BP 125/79
--- NOTE | 2019-04-02 16:20 | NUR ---
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 SACRAL DECUBITUS ULCER VS: BP 125/68, P 70, T 98.6, RR 18, SpO2 100 K 3.4, BUN 3 IS: TERAZOSIN HCI 1mg LEVOFLOXACIN 150ml IVPB ZOFRAN 4mg BACLOFEN 10mg GABAPENTIN 100mg PROTONIX 40mg TIZANIDINE HCI 4mg EFFEXOR 25mg D5/NS x1L IV MORPHINE SULFATE 2mg MED/SURG STATUS
--- NOTE | 2019-04-02 19:34 | NUR ---
HAND-OFF: Report given to Malina VINCENT.
--- NOTE | 2019-04-02 19:41 | NUR ---
NURSE NOTES: Pt received in bed, at lowest position, able to make needs known, no c/o pain or signs of distress at the moment, condom catheter in place and draining urine, IV fluids running, will continue to monitor.
[2019-04-02 20:00] VITALS: BP 105/61
[2019-04-02] MEDS: Terazosin 1mg cap ORAL SCH (20:30)
[2019-04-03] VITALS: BP 136/81
[2019-04-03] MEDS: D5 1/2NS 1,000 ML IV SCH ×2 (00:45→16:22)
[2019-04-03 04:00] VITALS: BP 121/78
[2019-04-03 06:33] LABS: BASOPHILS % (AUTO) 1.1 % (0.0-2.0); EOSINOPHILS % (AUTO) 0.9 % (0.0-3.0); HEMOGLOBIN 14.7 G/DL (14.2-18.0); LYMPHOCYTES % (AUTO) 41.6 % (20.0-45.0); MEAN CORPUSCULAR VOLUME 81 FL (80-99); MONOCYTES % (AUTO) 9.9 % (1.0-10.0); NEUTROPHILS % (AUTO) 46.6 % (45.0-75.0); PLATELET COUNT 146 K/UL (150-450); RED BLOOD COUNT 5.41 M/UL (4.70-6.10); WHITE BLOOD COUNT 5.4 K/UL (4.8-10.8)
[2019-04-03 06:39] LABS: ANION GAP 7 mmol/L (5-15); BLOOD UREA NITROGEN 2 mg/dL (7-18); CARBON DIOXIDE 29 MMOL/L (21-32); CHLORIDE 102 MMOL/L (98-107); CREATININE 0.6 MG/DL (0.55-1.30); POTASSIUM 3.4 MMOL/L (3.5-5.1); SODIUM 138 MMOL/L (136-145)
--- NOTE | 2019-04-03 07:36 | NUR ---
HAND-OFF: Report given to MELISA Palma.
[2019-04-03 08:00] VITALS: BP 132/75
--- NOTE | 2019-04-03 08:43 | General Progress Note ---
Assessment/Plan Problem List: (1) UTI (lower urinary tract infection) ICD Codes: N39.0 - Urinary tract infection, site not specified SNOMED: 8438496 (2) Quadriplegia ICD Codes: G82.50 - Quadriplegia, unspecified SNOMED: 12121704 (3) Sacral decubitus ulcer ICD Codes: L89.159 - Pressure ulcer of sacral region, unspecified stage SNOMED: 581056382 Qualifiers: Qualified Codes: L89.152 - Pressure ulcer of sacral region, stage 2 Status: stable, progressing Assessment/Plan: pt diet pain control abx debride prn cbc bmp am dc plan snf if all clear Subjective Constitutional: Reports: weakness Allergies: Coded Allergies: No Known Allergies (Unverified , 05/05/13) All Systems: reviewed and negative except above Subjective calm sleepy in bed Objective Last 24 Hour Vital Signs Date Time Temp Pulse Resp B/P (MAP) Pulse Ox O2 Delivery O2 Flow Rate FiO2 04/03/19 08:00 99.9 76 19 132/75 (94) 96 04/03/19 04:00 99.3 70 18 121/78 (92) 100 04/03/19 00:00 99.1 61 15 136/81 (99) 95 04/02/19 21:00 Room Air 04/02/19 20:00 99.0 80 17 105/61 (76) 96 04/02/19 16:00 99.3 74 18 125/79 (94) 100 04/02/19 12:00 98.6 70 18 125/68 (87) 100 04/02/19 09:00 Room Air Intake and Output 04/02/19 04/03/19 19:00 07:00 Intake Total 420 ml 570 ml Output Total 700 ml 1500 ml Balance -280 ml -930 ml Intake Oral 360 ml 240 ml IV Total 60 ml 330 ml Output Urine Total 700 ml 1500 ml Laboratory Tests 04/03/19 04:40: White Blood Count 5.4, Red Blood Count 5.41, Hemoglobin 14.7, Hematocrit 44.0, Mean Corpuscular Volume 81, Mean Corpuscular Hemoglobin 27.1, Mean Corpuscular Hemoglobin Concent 33.4, Red Cell Distribution Width 12.0, Platelet Count 146L, Mean Platelet Volume 10.2H, Neutrophils (%) (Auto) 46.6, Lymphocytes (%) (Auto) 41.6, Monocytes (%) (Auto) 9.9, Eosinophils (%) (Auto) 0.9, Basophils (%) (Auto ) 1.1, Sodium Level 138, Potassium Level 3.4L, Chloride Level 102, Carbon Dioxide Level 29, Anion Gap 7, Blood Urea Nitrogen 2L, Creatinine 0.6, Estimat Glomerular Filtration Rate > 60, Glucose Level 98, Calcium Level 9.0 Height (Feet): 5 Height (Inches): 11.00 Weight (Pounds): 150 General Appearance: lethargic EENT: normal ENT inspection Neck: normal alignment Cardiovascular: normal peripheral pulses, normal rate, regular rhythm Respiratory/Chest: chest wall non-tender, lungs clear, normal breath sounds Abdomen: normal bowel sounds, non tender, soft Extremities: normal inspection Edema: no edema noted Arm (L), no edema noted Arm (R), no edema noted Leg (L), no edema noted Leg (R), no edema noted Pedal (L), no edema noted Pedal (R), no edema noted Generalized Neurologic: motor weakness Skin: normal pigmentation, warm/dry Nba Hdz DO April 03, 2019 08:43
[2019-04-03] MEDS: Docusate 100mg cap ORAL SCH ×2 (08:46→17:36)
[2019-04-03] MEDS: Venlafaxine 25mg tab ORAL SCH ×3 (08:46→17:37)
[2019-04-03] MEDS: Heparin 5000 units/ml inj SUBQ SCH ×2 (09:01→21:30)
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
[2019-04-03 12:00] VITALS: BP 116/69
[2019-04-03] MEDS: Morphine Sulfate 2mg/ml Inj(IV/IM USE ONLY) IVP PRN ×2 (12:46→21:38)
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
--- NOTE | 2019-04-03 15:26 | NUR ---
NURSE NOTES: PT AXOX4, CALM, RESTING IN BED. ABLE TO MAKE NEEDS KNOWN. PT UNABLE TO PRESS CALL LIGHT. RN AND STAFF MAKING HOURLY ROUNDS. IN NO APPARENT DISTRESS AT THIS TIME. WILL CONTINUE TO MONITOR.
[2019-04-03] MEDS ORDERED: Fluconazole 100mg tab ORAL SCH (15:30)
[2019-04-03 16:00] VITALS: BP 120/71
--- NOTE | 2019-04-03 16:26 | NUR ---
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 SACRAL DECUBITUS ULCER VS: BP 136/81, P 55, T 99.9, RR 18, SpO2 100 K 3.4, BUN 2 IS: TERAZOSIN HCI 1mg LEVOFLOXACIN 150ml IVPB ZOFRAN 4mg BACLOFEN 10mg GABAPENTIN 100mg PROTONIX 40mg TIZANIDINE HCI 4mg EFFEXOR 25mg D5/NS x1L IV MORPHINE SULFATE 2mg MED/SURG STATUS
--- NOTE | 2019-04-03 16:51 | NUR ---
PT Note PT marvin completed, treatment initiated. Patient had frequent spasms in all extremities, causing him pain. Patient states that his pain decreased with the exercises. Patient can benefit from PT to increase/maintain his ROM and decrease pain as he has high potential to develop contractures and pain without the exercises. Addendum: 04/03/19 at 1652 by TOVA HERNANDEZ PT Amended: Links added.
--- NOTE | 2019-04-03 19:08 | NUR ---
NURSE NOTES: Pt received in bed, head of bed elevated, no c/o pain or signs of distress at the moment, pt states he ate most of his lunch and dinner, able to make needs known, IV fluids running, condom catheter in place, will continue to monitor.
--- NOTE | 2019-04-03 19:13 | NUR ---
HAND-OFF: Report given to Lelo ABARCA RN.
[2019-04-03 20:00] VITALS: BP 117/79
[2019-04-03] MEDS: Terazosin 1mg cap ORAL SCH (21:30)
[2019-04-04] VITALS: BP 121/74
[2019-04-04 04:00] VITALS: BP 123/79
--- NOTE | 2019-04-04 07:01 | NUR ---
HAND-OFF: Report given to MELISA Palma.
[2019-04-04 07:07] LABS: ANION GAP 8 mmol/L (5-15); BLOOD UREA NITROGEN 3 mg/dL (7-18); CARBON DIOXIDE 29 MMOL/L (21-32); CHLORIDE 105 MMOL/L (98-107); CREATININE 0.6 MG/DL (0.55-1.30); POTASSIUM 3.3 MMOL/L (3.5-5.1); SODIUM 142 MMOL/L (136-145)
[2019-04-04 07:26] LABS: BASOPHILS % (AUTO) 1.1 % (0.0-2.0); EOSINOPHILS % (AUTO) 1.1 % (0.0-3.0); HEMATOCRIT 43.5 % (42.0-52.0); HEMOGLOBIN 14.4 G/DL (14.2-18.0); LYMPHOCYTES % (AUTO) 45.3 % (20.0-45.0); MEAN CORPUSCULAR VOLUME 82 FL (80-99); MONOCYTES % (AUTO) 9.3 % (1.0-10.0); NEUTROPHILS % (AUTO) 43.2 % (45.0-75.0); PLATELET COUNT 133 K/UL (150-450); RED BLOOD COUNT 5.32 M/UL (4.70-6.10); RED CELL DISTRIBUTION WIDTH 12.1 % (11.6-14.8); WHITE BLOOD COUNT 4.9 K/UL (4.8-10.8)
--- NOTE | 2019-04-04 07:53 | NUR ---
NURSE NOTES: PT AXOX4, CALM, RESTING IN BED. RN ASSISTED FEEDING BREAKFAST. IN NO APPARENT DISTRESS AT THIS TIME. D5 1/2NS RUNNING AT 60CC/H ON RIGHT AC G20. IV ACCESS ASYMPTOMATIC, PATENT AND INTACT. BED IN LOWEST POSITION WITH BEDSIDE RAILS X2 RAISED. BED ALARM ON. WILL CONTINUE TO MONITOR.
[2019-04-04 08:00] VITALS: BP 130/80
--- NOTE | 2019-04-04 08:33 | General Progress Note ---
Assessment/Plan Problem List: (1) UTI (lower urinary tract infection) ICD Codes: N39.0 - Urinary tract infection, site not specified SNOMED: 8751523 (2) Quadriplegia ICD Codes: G82.50 - Quadriplegia, unspecified SNOMED: 86091585 (3) Sacral decubitus ulcer ICD Codes: L89.159 - Pressure ulcer of sacral region, unspecified stage SNOMED: 084802416 Qualifiers: Qualified Codes: L89.152 - Pressure ulcer of sacral region, stage 2 Status: stable, progressing Assessment/Plan: pt diet pain control abx debride prn cbc bmp am dc plan snf if all clear Subjective Constitutional: Reports: weakness Allergies: Coded Allergies: No Known Allergies (Unverified , 05/05/13) All Systems: reviewed and negative except above Subjective calm sleepy in bed Objective Last 24 Hour Vital Signs Date Time Temp Pulse Resp B/P (MAP) Pulse Ox O2 Delivery O2 Flow Rate FiO2 04/04/19 08:00 99.2 67 19 130/80 (97) 96 04/04/19 04:00 99.1 68 18 123/79 (94) 100 04/04/19 00:00 98.1 74 16 121/74 (90) 99 04/03/19 21:00 Room Air 04/03/19 20:00 99.7 69 17 117/79 (92) 100 04/03/19 16:00 99.3 55 19 120/71 (87) 100 04/03/19 12:00 97.8 71 19 116/69 (85) 99 04/03/19 09:00 Room Air Intake and Output 04/03/19 04/04/19 19:00 07:00 Intake Total 1640 ml 560 ml Output Total 1000 ml 1775 ml Balance 640 ml -1215 ml IV Total 660 ml 560 ml Other 980 ml Output Urine Total 1000 ml 1775 ml Laboratory Tests 04/04/19 04:50: White Blood Count 4.9, Red Blood Count 5.32, Hemoglobin 14.4, Hematocrit 43.5, Mean Corpuscular Volume 82, Mean Corpuscular Hemoglobin 27.1, Mean Corpuscular Hemoglobin Concent 33.1, Red Cell Distribution Width 12.1, Platelet Count 133L, Mean Platelet Volume 9.5, Neutrophils (%) (Auto) 43.2L, Lymphocytes (%) (Auto) 45.3H, Monocytes (%) (Auto) 9.3, Eosinophils (%) (Auto) 1.1, Basophils (%) (Auto ) 1.1, Sodium Level 142, Potassium Level 3.3L, Chloride Level 105, Carbon Dioxide Level 29, Anion Gap 8, Blood Urea Nitrogen 3L, Creatinine 0.6, Estimat Glomerular Filtration Rate > 60, Glucose Level 100, Calcium Level 9.0 Height (Feet): 5 Height (Inches): 11.00 Weight (Pounds): 150 General Appearance: lethargic EENT: normal ENT inspection Neck: normal alignment Cardiovascular: normal peripheral pulses, normal rate, regular rhythm Respiratory/Chest: chest wall non-tender, lungs clear, normal breath sounds Abdomen: normal bowel sounds, non tender, soft Extremities: normal inspection Edema: no edema noted Arm (L), no edema noted Arm (R), no edema noted Leg (L), no edema noted Leg (R), no edema noted Pedal (L), no edema noted Pedal (R), no edema noted Generalized Neurologic: motor weakness Skin: normal pigmentation, warm/dry Lymphatic: normal anterior cervical (L), normal anterior cervical (R), normal posterior cervical (L), normal posterior cervical (R), normal submandibular (L) , normal submandibular (R), normal supraclavicular (L), normal supraclavicular ( R), normal axillary (L), normal axillary (R), normal inguinal (L), normal inguinal (R), normal other Nba Hdz DO April 04, 2019 08:32
[2019-04-04] MEDS: Heparin 5000 units/ml inj SUBQ SCH ×2 (09:00→20:53)
[2019-04-04] MEDS: Venlafaxine 25mg tab ORAL SCH ×3 (09:00→17:42)
[2019-04-04] MEDS: Fluconazole 100mg tab ORAL SCH (09:04)
[2019-04-04] MEDS: D5 1/2NS 1,000 ML IV SCH (09:04)
[2019-04-04] MEDS: Docusate 100mg cap ORAL SCH ×2 (09:05→17:41)
--- NOTE | 2019-04-04 09:53 | NUR ---
NURSE NOTES: RN LEFT MESSAGE FOR DR NUNO REGARDING POTASSIUM LEVEL 3.3 TODAY.
[2019-04-04 12:00] VITALS: BP 116/79
--- NOTE | 2019-04-04 13:15 | NUR ---
RD ASSESSMENT & RECOMMENDATIONS SEE CARE ACTIVITY FOR COMPLETE ASSESSMENT DAILY ESTIMATED NEEDS: Needs based on wound, quadriplegia, 66kg 25-30 kcals/kg 4023-3798 total kcals 1.25-1.5 g protein/kg 83-99 g total protein 25-30 mL/kg 0169-7527 total fluid mLs NUTRITION DIAGNOSIS: * Increased kcal/prot intake needs R/T wound healing as evidenced by pt admitted w/ multiple pressure wounds, refer to WC eval. CURRENT DIET: Regular PO DIET RECOMMENDATIONS: REGULAR/ texture as tolerated ADDITIONAL RECOMMENDATIONS: * Calibrated bedscale wt for accurate CBW Conflicting wts: Bed scale 145.6# vs EMR 150# * Wound care: add MVI x 1, Vit C 250mg BID, Ministerio 1pkt BID * Ensure Enlive 1 bottle daily if accepted * Monitor PO intake, need for additional snacks/ supplements * K low (3.3), check lytes daily, replete as needed
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
[2019-04-04] MEDS: Fleet's Enema 133ml RECTAL PRN (14:30)
[2019-04-04 16:00] VITALS: BP 123/73
--- NOTE | 2019-04-04 16:00 | NUR ---
NURSE NOTES: RECEIVED ORDER FOR KDUR 40MEQ PO X1.
--- NOTE | 2019-04-04 16:31 | NUR ---
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 SACRAL DECUBITUS ULCER VS: BP 101/55, P 82, T 99.6, RR 18, SpO2 100 PLT. COUNT 133, K 3.3, BUN 3 IS: CEFTAZIDIME 55ml IV TERAZOSIN HCI 1mg ZOFRAN 4mg BACLOFEN 10mg GABAPENTIN 100mg PROTONIX 40mg TIZANIDINE HCI 4mg EFFEXOR 25mg D5/NS x1L IV MORPHINE SULFATE 2mg MED/SURG STATUS
[2019-04-04] MEDS: D5W IV SCH (18:29)
[2019-04-04] MEDS: CEFTAZIDIME IV SCH (18:29)
--- NOTE | 2019-04-04 19:06 | NUR ---
HAND-OFF: Report given to Lelo ABARCA RN.
--- NOTE | 2019-04-04 19:16 | NUR ---
NURSE NOTES: Pt received in bed watching TV with no c/o pain at the moment, pt aware of new antibiotic order, able to make needs known, condom catheter in place, IV fluids running, will continue to monitor.
[2019-04-04 20:00] VITALS: BP 101/55
[2019-04-04] MEDS: Terazosin 1mg cap ORAL SCH (20:51)
[2019-04-05] VITALS (7 sets, daily range): BP systolic 104–131; BP diastolic 60–80
[2019-04-05] MEDS: CEFTAZIDIME IV SCH ×3 (03:14→18:14)
[2019-04-05] MEDS: D5W IV SCH ×3 (03:14→18:14)
[2019-04-05] MEDS: D5 1/2NS 1,000 ML IV SCH ×2 (03:15→18:39)
--- NOTE | 2019-04-05 07:23 | NUR ---
HAND-OFF: Report given to MELISA Bell.
--- NOTE | 2019-04-05 08:04 | NUR ---
NURSE NOTES: Received report from Malina VINCENT. Patient is awake alert and oriented x4, no acute distress noted, laying semi-dueñas in bed and heels offloaded. Reporting no pain. IV intact and asymptomatic. Fall precautions maintained. Side rails upx3, bed low and locked, call light in reach. Will continue to monitor.
[2019-04-05 08:12] LABS: BASOPHILS % (AUTO) 0.9 % (0.0-2.0); HEMATOCRIT 42.5 % (42.0-52.0); HEMOGLOBIN 13.9 G/DL (14.2-18.0); LYMPHOCYTES % (AUTO) 33.4 % (20.0-45.0); MEAN CORPUSCULAR VOLUME 81 FL (80-99); MONOCYTES % (AUTO) 7.5 % (1.0-10.0); NEUTROPHILS % (AUTO) 57.2 % (45.0-75.0); PLATELET COUNT 127 K/UL (150-450); RED BLOOD COUNT 5.26 M/UL (4.70-6.10); RED CELL DISTRIBUTION WIDTH 11.7 % (11.6-14.8); WHITE BLOOD COUNT 6.5 K/UL (4.8-10.8)
[2019-04-05 08:23] LABS: ANION GAP 6 mmol/L (5-15); BLOOD UREA NITROGEN 5 mg/dL (7-18); CALCIUM 8.9 MG/DL (8.5-10.1); CARBON DIOXIDE 30 MMOL/L (21-32); CHLORIDE 106 MMOL/L (98-107); CREATININE 0.7 MG/DL (0.55-1.30); POTASSIUM 3.8 MMOL/L (3.5-5.1); SODIUM 142 MMOL/L (136-145)
[2019-04-05] MEDS: Venlafaxine 25mg tab ORAL SCH ×3 (10:08→18:14)
[2019-04-05] MEDS: Fluconazole 100mg tab ORAL SCH (10:08)
[2019-04-05] MEDS: Docusate 100mg cap ORAL SCH ×2 (10:09→18:14)
[2019-04-05] MEDS: Heparin 5000 units/ml inj SUBQ SCH ×2 (10:30→21:00)
--- NOTE | 2019-04-05 10:30 | NUR ---
NURSE NOTES: Informed Dr. Mckinney of platelet count of 127. MD ordered to hold heparin. Heparin held per order. Will continue to monitor.
[2019-04-05] MEDS: Morphine Sulfate 2mg/ml Inj(IV/IM USE ONLY) IVP PRN (11:32)
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
--- NOTE | 2019-04-05 13:10 | NUR ---
*-* INSURANCE *-* UPDATED CLINICALS AND REVIEWS HAVE BEEN FAXED TO: [facility] REF#[id number] NCM:ROYA DOYLE [phone] [phone]
--- NOTE | 2019-04-05 13:38 | General Progress Note ---
Assessment/Plan Problem List: (1) UTI (lower urinary tract infection) ICD Codes: N39.0 - Urinary tract infection, site not specified SNOMED: 5922108 (2) Quadriplegia ICD Codes: G82.50 - Quadriplegia, unspecified SNOMED: 19770570 (3) Sacral decubitus ulcer ICD Codes: L89.159 - Pressure ulcer of sacral region, unspecified stage SNOMED: 665955161 Qualifiers: Qualified Codes: L89.152 - Pressure ulcer of sacral region, stage 2 Status: stable, progressing Assessment/Plan: pt diet pain control abx debride prn cbc bmp am dc plan snf if all clear Subjective Constitutional: Reports: weakness Allergies: Coded Allergies: No Known Allergies (Unverified , 05/05/13) All Systems: reviewed and negative except above Subjective calm sleepy in bed Objective Last 24 Hour Vital Signs Date Time Temp Pulse Resp B/P (MAP) Pulse Ox O2 Delivery O2 Flow Rate FiO2 04/05/19 04:00 98.2 80 18 105/62 (76) 95 04/05/19 00:00 98.5 80 18 112/60 (77) 99 04/04/19 21:00 Room Air 04/04/19 20:00 99.6 82 18 101/55 (70) 100 04/04/19 16:00 98.8 65 19 123/73 (90) 100 Intake and Output 04/04/19 04/05/19 19:00 07:00 Intake Total 595 ml 290 ml Output Total 1200 ml 1850 ml Balance -605 ml -1560 ml IV Total 595 ml 290 ml Output Urine Total 1200 ml 1850 ml Laboratory Tests 04/05/19 07:10: White Blood Count 6.5, Red Blood Count 5.26, Hemoglobin 13.9L, Hematocrit 42.5, Mean Corpuscular Volume 81, Mean Corpuscular Hemoglobin 26.5L, Mean Corpuscular Hemoglobin Concent 32.8, Red Cell Distribution Width 11.7, Platelet Count 127L, Mean Platelet Volume 9.7, Neutrophils (%) (Auto) 57.2, Lymphocytes (%) (Auto) 33.4, Monocytes (%) (Auto) 7.5, Eosinophils (%) (Auto) 1.0, Basophils (%) (Auto ) 0.9, Sodium Level 142, Potassium Level 3.8, Chloride Level 106, Carbon Dioxide Level 30, Anion Gap 6, Blood Urea Nitrogen 5L, Creatinine 0.7, Estimat Glomerular Filtration Rate > 60, Glucose Level 112H, Calcium Level 8.9 Height (Feet): 5 Height (Inches): 11.00 Weight (Pounds): 150 General Appearance: lethargic EENT: normal ENT inspection Neck: normal alignment Cardiovascular: normal peripheral pulses, normal rate, regular rhythm Respiratory/Chest: chest wall non-tender, lungs clear, normal breath sounds Abdomen: normal bowel sounds, non tender, soft Extremities: normal inspection Edema: no edema noted Arm (L), no edema noted Arm (R), no edema noted Leg (L), no edema noted Leg (R), no edema noted Pedal (L), no edema noted Pedal (R), no edema noted Generalized Neurologic: motor weakness Skin: normal pigmentation, warm/dry Nba Hdz DO April 05, 2019 13:38
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
--- NOTE | 2019-04-05 16:34 | NUR ---
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 SACRAL DECUBITUS ULCER VS: BP 131/80, P 90, T 98.2, RR 18, SpO2 95 Hgb 13.9, PLT. COUNT 127, BUN 5 IS: BACLOFEN 10mg GABAPENTIN 100mg ZANAFLEX 4mg EFFEXOR 25mg MORPHINE SULFATE 2mg CEFTAZIDIME 55ml IV MED/SURG STATUS
--- NOTE | 2019-04-05 16:42 | NUR ---
NURSE NOTES: Informed Dr. Haynes that patient does not have otero catheter, patient is wearing condom catheter. stated to disregard "change otero catheter" order.
--- NOTE | 2019-04-05 19:30 | NUR ---
HAND-OFF: Report given to Yadira VINCENT. Patient is in stable condition.
--- NOTE | 2019-04-05 20:04 | NUR ---
NURSE NOTES: Received patient in bed, no acute distress noted, VSS, afebrile, alert/oriented x 4, on room air. Call light is within reach, bed is in low position, locked and alarm is on, will continue to monitor for comfort and safety.
[2019-04-05] MEDS: Terazosin 1mg cap ORAL SCH (21:11)
[2019-04-06] MEDS: Morphine Sulfate 2mg/ml Inj(IV/IM USE ONLY) IVP PRN ×2 (00:12→23:10)
[2019-04-06 00:20] VITALS: BP 127/80
[2019-04-06] MEDS: CEFTAZIDIME IV SCH ×3 (02:22→18:33)
[2019-04-06] MEDS: D5W IV SCH ×3 (02:22→18:33)
[2019-04-06 04:21] VITALS: BP 144/88
--- NOTE | 2019-04-06 07:30 | NUR ---
NURSE NOTES: Received patient in bed, patient awake alert and oriented x4, no acute distress noted, IVF patent and infusing well, on Fall and pressure ulcer precautions maintained. Side rails upx2, bed low and locked, both lower extremities elevated on pillow,call light in reach. Will continue to monitor. mello quevedo
[2019-04-06 07:44] LABS: BASOPHILS % (AUTO) 1.6 % (0.0-2.0); EOSINOPHILS % (AUTO) 1.9 % (0.0-3.0); HEMATOCRIT 44.3 % (42.0-52.0); HEMOGLOBIN 14.6 G/DL (14.2-18.0); LYMPHOCYTES % (AUTO) 22.6 % (20.0-45.0); MEAN CORPUSCULAR VOLUME 82 FL (80-99); MONOCYTES % (AUTO) 6.2 % (1.0-10.0); NEUTROPHILS % (AUTO) 67.8 % (45.0-75.0); PLATELET COUNT 132 K/UL (150-450); RED CELL DISTRIBUTION WIDTH 12.1 % (11.6-14.8); WHITE BLOOD COUNT 5.9 K/UL (4.8-10.8)
[2019-04-06 08:00] VITALS: BP 155/73
[2019-04-06 08:02] LABS: ALANINE AMINOTRANSFERASE 26 U/L (12-78); ALBUMIN 3.6 G/DL (3.4-5.0); ALKALINE PHOSPHATASE 70 U/L (46-116); ANION GAP 6 mmol/L (5-15); ASPARTATE AMINO TRANSFERASE 19 U/L (15-37); BILIRUBIN,TOTAL 0.6 MG/DL (0.2-1.0); BLOOD UREA NITROGEN 4 mg/dL (7-18); CARBON DIOXIDE 30 MMOL/L (21-32); CHLORIDE 103 MMOL/L (98-107); CREATININE 0.7 MG/DL (0.55-1.30); POTASSIUM 4.4 MMOL/L (3.5-5.1); SODIUM 139 MMOL/L (136-145)
[2019-04-06] MEDS: Docusate 100mg cap ORAL SCH ×2 (08:29→17:13)
[2019-04-06] MEDS: Venlafaxine 25mg tab ORAL SCH ×3 (08:29→17:13)
[2019-04-06] MEDS: Fluconazole 100mg tab ORAL SCH (08:29)
[2019-04-06] MEDS: Heparin 5000 units/ml inj SUBQ SCH ×2 (08:31→20:33)
[2019-04-06] MEDS: D5 1/2NS 1,000 ML IV SCH (10:20)
--- NOTE | 2019-04-06 11:03 | NUR ---
*-* INSURANCE *-* UPDATED CLINICALS AND REVIEWS HAVE BEEN FAXED TO: [facility] REF#[id number] NCM:ROYA DOYLE [phone] [phone]
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
[2019-04-06 12:00] VITALS: BP 147/76
--- NOTE | 2019-04-06 13:10 | NUR ---
RUBBER MOULDING MACHINE OPERATOR NOTES RECEIVED A CALL [facility]UNABLE TO ACCEPT PT AT THIS TIME.MD AND PT MADE AWARE. DCP ONGOING. CLINICALS FAXED TO [facility].
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
--- NOTE | 2019-04-06 14:52 | General Progress Note ---
Assessment/Plan Problem List: (1) UTI (lower urinary tract infection) ICD Codes: N39.0 - Urinary tract infection, site not specified SNOMED: 7024691 (2) Quadriplegia ICD Codes: G82.50 - Quadriplegia, unspecified SNOMED: 58132108 (3) Sacral decubitus ulcer ICD Codes: L89.159 - Pressure ulcer of sacral region, unspecified stage SNOMED: 804754583 Qualifiers: Qualified Codes: L89.152 - Pressure ulcer of sacral region, stage 2 Status: stable, progressing Assessment/Plan: pt diet pain control abx debride prn dc to snf if all clear Subjective Constitutional: Reports: weakness Allergies: Coded Allergies: No Known Allergies (Unverified , 05/05/13) All Systems: reviewed and negative except above Subjective calm sleepy in bed Objective Last 24 Hour Vital Signs Date Time Temp Pulse Resp B/P (MAP) Pulse Ox O2 Delivery O2 Flow Rate FiO2 04/06/19 12:00 98.6 61 18 147/76 (99) 98 04/06/19 08:09 Room Air 04/06/19 08:00 98.8 84 18 155/73 (100) 98 04/06/19 04:21 98.2 78 18 144/88 (106) 04/06/19 00:20 98.1 64 18 127/80 (96) 04/05/19 21:56 Room Air 04/05/19 21:54 98.0 66 18 104/71 (82) 04/05/19 20:00 98.0 66 18 104/71 (82) 04/05/19 19:18 98.2 04/05/19 16:00 98.2 63 18 118/80 (93) 98 Intake and Output 04/05/19 04/06/19 19:00 07:00 Intake Total 1620 ml 60 ml Output Total 1300 ml Balance 320 ml 60 ml Intake Oral 960 ml IV Total 660 ml 60 ml Output Urine Total 1300 ml Laboratory Tests 04/06/19 07:13: White Blood Count 5.9, Red Blood Count 5.40, Hemoglobin 14.6, Hematocrit 44.3, Mean Corpuscular Volume 82, Mean Corpuscular Hemoglobin 27.1, Mean Corpuscular Hemoglobin Concent 33.0, Red Cell Distribution Width 12.1, Platelet Count 132L, Mean Platelet Volume 10.5H, Neutrophils (%) (Auto) 67.8, Lymphocytes (%) (Auto) 22.6, Monocytes (%) (Auto) 6.2, Eosinophils (%) (Auto) 1.9, Basophils (%) (Auto ) 1.6, Sodium Level 139, Potassium Level 4.4, Chloride Level 103, Carbon Dioxide Level 30, Anion Gap 6, Blood Urea Nitrogen 4L, Creatinine 0.7, Estimat Glomerular Filtration Rate > 60, Glucose Level 104, Calcium Level 9.0, Total Bilirubin 0.6, Aspartate Amino Transf (AST/SGOT) 19, Alanine Aminotransferase ( ALT/SGPT) 26, Alkaline Phosphatase 70, Total Protein 7.3, Albumin 3.6, Globulin 3.7, Albumin/Globulin Ratio 1.0 Height (Feet): 5 Height (Inches): 11.00 Weight (Pounds): 150 General Appearance: lethargic EENT: normal ENT inspection Neck: normal alignment Cardiovascular: normal peripheral pulses, normal rate, regular rhythm Respiratory/Chest: chest wall non-tender, lungs clear, normal breath sounds Abdomen: normal bowel sounds, non tender, soft Extremities: normal inspection Edema: no edema noted Arm (L), no edema noted Arm (R), no edema noted Leg (L), no edema noted Leg (R), no edema noted Pedal (L), no edema noted Pedal (R), no edema noted Generalized Neurologic: responsive, motor weakness Skin: normal pigmentation, warm/dry Nba Hdz DO April 06, 2019 14:52
[2019-04-06 16:00] VITALS: BP 106/71
[2019-04-06] MEDS: Fleet's Enema 133ml RECTAL PRN (16:28)
--- NOTE | 2019-04-06 16:28 | NUR ---
nurse notes patient reguested to have fleet sodium phos enema, enema given as ordered, will wait for BM, Repositioned patient for comfort .mello quevedo
--- NOTE | 2019-04-06 19:12 | NUR ---
HAND-OFF: Report given to MELISA Frias Patient in stable condition melisa quevedo.
--- NOTE | 2019-04-06 19:43 | NUR ---
NURSE NOTES: Received patient in bed, awake, alert, oriented x4, VSS, afebrile, on room air, no acute distress noted.Patient is able to make his needs known, call light is within reach, bed is in low position, locked and alarm is on. Will continue to monitor for safety and comfort.
[2019-04-06 20:00] VITALS: BP 108/72
[2019-04-06] MEDS: Terazosin 1mg cap ORAL SCH (20:34)
[2019-04-07] VITALS: BP 104/75
[2019-04-07] MEDS: D5W IV SCH ×3 (03:01→18:23)
[2019-04-07] MEDS: CEFTAZIDIME IV SCH ×3 (03:01→18:23)
[2019-04-07 04:00] VITALS: BP 145/91
[2019-04-07] MEDS: D5 1/2NS 1,000 ML IV SCH ×2 (04:03→21:17)
--- NOTE | 2019-04-07 06:45 | NUR ---
HAND-OFF: Report given to Omer VINCENT.
[2019-04-07 07:50] VITALS: BP 140/80
--- NOTE | 2019-04-07 07:53 | NUR ---
NURSE NOTES: pt awake alert, no distress. no c/o pain. call light within reach. bed in lowest position, locked. will monitor.
[2019-04-07] MEDS: Heparin 5000 units/ml inj SUBQ SCH ×2 (08:23→21:00)
[2019-04-07] MEDS: Fluconazole 100mg tab ORAL SCH (08:24)
[2019-04-07] MEDS: Venlafaxine 25mg tab ORAL SCH ×3 (08:24→17:15)
[2019-04-07] MEDS: Docusate 100mg cap ORAL SCH ×2 (08:24→17:14)
--- NOTE | 2019-04-07 09:02 | NUR ---
GROUP LEADER WAFER POLISHINGRENTAL CLERK TOOL AND EQUIPMENT SI: UTI . SACRAL DECUBITUS ULCER . QUADRIPLEGIA VS: BP 88/60, P 68, T 98.2, RR 18, SpO2 99 IS:NS x 500ml IV TERAZOSIN HCI 1mg D5/NS x1L IV CEFTAZIDIME/D5W 110mls IV TIZANIDINE HCI 4mg EFFEXOR 25mg GABAPENTIN 100mg PLAN: DISCHARGE TO SNF WHEN AUTHORIZED BY [facility]/SURG STATUS
--- NOTE | 2019-04-07 09:05 | NUR ---
NURSE NOTES: Pt wants to wait prior to eating breakfast, due to just had bm.
--- NOTE | 2019-04-07 10:45 | NUR ---
*-* INSURANCE *-* UPDATED CLINICALS AND REVIEWS HAVE BEEN FAXED TO: [facility] REF#[id number] NCM:ROYA DOYLE [phone] [phone]
[2019-04-07 12:53] VITALS: BP 90/60
--- NOTE | 2019-04-07 13:34 | General Progress Note ---
Assessment/Plan Problem List: (1) UTI (lower urinary tract infection) ICD Codes: N39.0 - Urinary tract infection, site not specified SNOMED: 9857919 (2) Quadriplegia ICD Codes: G82.50 - Quadriplegia, unspecified SNOMED: 19407368 (3) Sacral decubitus ulcer ICD Codes: L89.159 - Pressure ulcer of sacral region, unspecified stage SNOMED: 088691473 Qualifiers: Qualified Codes: L89.152 - Pressure ulcer of sacral region, stage 2 Status: stable, progressing Assessment/Plan: pt diet pain control abx debride prn dc to snf if all clear Subjective Constitutional: Reports: weakness Allergies: Coded Allergies: No Known Allergies (Unverified , 05/05/13) All Systems: reviewed and negative except above Subjective calm sleepy in bed Objective Last 24 Hour Vital Signs Date Time Temp Pulse Resp B/P (MAP) Pulse Ox O2 Delivery O2 Flow Rate FiO2 04/07/19 12:53 98.2 68 18 90/60 (70) 04/07/19 09:23 98.2 04/07/19 09:00 Room Air 04/07/19 07:50 98.2 80 18 140/80 (100) 04/07/19 04:00 98.2 100 18 145/91 (109) 04/07/19 00:00 98.3 76 18 104/75 (85) 04/06/19 21:27 Room Air 04/06/19 20:00 98.1 79 18 108/72 (84) 04/06/19 16:00 98.1 65 18 106/71 (83) 99 Intake and Output 04/06/19 04/07/19 19:00 07:00 Intake Total 1490 ml 1200 ml Output Total 2500 ml 2500 ml Balance -1010 ml -1300 ml Intake Oral 840 ml 780 ml IV Total 650 ml 420 ml Output Urine Total 2500 ml 2500 ml # Voids 1 Height (Feet): 5 Height (Inches): 11.00 Weight (Pounds): 150 General Appearance: lethargic EENT: normal ENT inspection Neck: normal alignment Cardiovascular: normal peripheral pulses, normal rate, regular rhythm Respiratory/Chest: chest wall non-tender, lungs clear, normal breath sounds Abdomen: normal bowel sounds, non tender, soft Extremities: normal inspection Edema: no edema noted Arm (L), no edema noted Arm (R), no edema noted Leg (L), no edema noted Leg (R), no edema noted Pedal (L), no edema noted Pedal (R), no edema noted Generalized Neurologic: motor weakness Skin: normal pigmentation, warm/dry Nba Hdz DO April 07, 2019 13:34
--- NOTE | 2019-04-07 13:35 | NUR ---
SUPERINTENDENT MAINTENANCE NOTES SPOKE WITH YANNA PT DECLINED DUE TO AGE. INQUIRY FAXED TO [facility] WILL FOLLOW UP.
--- NOTE | 2019-04-07 13:43 | NUR ---
*-* DISCAHRGE PLANNING *-* PATIENT HAS BEEN REFERRED TO: REBEKA STEINBERG ATTN:PABLO F:[phone] P:[phone]
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
[2019-04-07 15:52] VITALS: BP 88/60
--- NOTE | 2019-04-07 18:59 | NUR ---
HAND-OFF: Report given to EUGENIO VINCENT.
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
--- NOTE | 2019-04-07 19:35 | NUR ---
NURSE NOTES: Received patient awake, verbal, resting in bed comfortably without complaints.
[2019-04-07 20:00] VITALS: BP 95/65
[2019-04-07] MEDS: Terazosin 1mg cap ORAL SCH (21:17)
[2019-04-07] MEDS: Morphine Sulfate 2mg/ml Inj(IV/IM USE ONLY) IVP PRN (21:18)
[2019-04-08 00:25] VITALS: BP 95/61
[2019-04-08] MEDS: CEFTAZIDIME IV SCH ×3 (02:02→17:35)
[2019-04-08] MEDS: D5W IV SCH ×3 (02:02→17:35)
[2019-04-08] MEDS: Morphine Sulfate 2mg/ml Inj(IV/IM USE ONLY) IVP PRN ×2 (02:08→10:40)
[2019-04-08 04:00] VITALS: BP 121/79
[2019-04-08 07:32] LABS: BASOPHILS % (AUTO) 1.1 % (0.0-2.0); EOSINOPHILS % (AUTO) 1.8 % (0.0-3.0); HEMATOCRIT 43.7 % (42.0-52.0); HEMOGLOBIN 14.2 G/DL (14.2-18.0); LYMPHOCYTES % (AUTO) 34.4 % (20.0-45.0); MEAN CORPUSCULAR VOLUME 82 FL (80-99); MONOCYTES % (AUTO) 8.8 % (1.0-10.0); NEUTROPHILS % (AUTO) 53.8 % (45.0-75.0); PLATELET COUNT 131 K/UL (150-450); RED BLOOD COUNT 5.32 M/UL (4.70-6.10); RED CELL DISTRIBUTION WIDTH 12.3 % (11.6-14.8); WHITE BLOOD COUNT 5.4 K/UL (4.8-10.8)
--- NOTE | 2019-04-08 07:34 | NUR ---
HAND-OFF: Report given to Beltran Fuentes RN.
--- NOTE | 2019-04-08 07:45 | NUR ---
NURSE NOTES: Received patient on bed, awake. IV site intact and patent. Condom cath intact. Bed in locked position, call light in reach. No signs of respiratory distress or pain. ROom board updated, will continue to monitor.
[2019-04-08 07:53] LABS: ANION GAP 5 mmol/L (5-15); BLOOD UREA NITROGEN 5 mg/dL (7-18); CARBON DIOXIDE 29 MMOL/L (21-32); CHLORIDE 103 MMOL/L (98-107); CREATININE 0.6 MG/DL (0.55-1.30); POTASSIUM 4.2 MMOL/L (3.5-5.1); SODIUM 137 MMOL/L (136-145)
[2019-04-08 08:00] VITALS: BP 118/73
[2019-04-08] MEDS: Docusate 100mg cap ORAL SCH ×2 (08:47→17:35)
[2019-04-08] MEDS: Fluconazole 100mg tab ORAL SCH (08:47)
[2019-04-08] MEDS: Venlafaxine 25mg tab ORAL SCH ×3 (08:47→17:36)
[2019-04-08] MEDS: Heparin 5000 units/ml inj SUBQ SCH ×2 (08:48→20:11)
--- NOTE | 2019-04-08 09:38 | NUR ---
INSTITUTIONAL COMMODITY ANALYST NOTES FAXED CLINICALS TO [facility] TO GET AUTH FOR [facility] TO ACCEPT PT. T- F-
--- NOTE | 2019-04-08 09:40 | NUR ---
BUGGYMANVAT HOUSE SUPERVISOR SI: UTI . SACRAL DECUBITUS ULCER VS: BP IS:GABAPENTIN 100mg EFFEXOR 25mg ZANAFLEX 4mg CEFTAZIDIME 55ml IV ZOFRAN 4mg IVP MED/SURG STATUS
[2019-04-08 12:00] VITALS: BP 112/71
--- NOTE | 2019-04-08 12:09 | General Progress Note ---
Assessment/Plan Problem List: (1) UTI (lower urinary tract infection) ICD Codes: N39.0 - Urinary tract infection, site not specified SNOMED: 3872683 (2) Quadriplegia ICD Codes: G82.50 - Quadriplegia, unspecified SNOMED: 27755307 (3) Sacral decubitus ulcer ICD Codes: L89.159 - Pressure ulcer of sacral region, unspecified stage SNOMED: 839779669 Qualifiers: Qualified Codes: L89.152 - Pressure ulcer of sacral region, stage 2 Status: stable, progressing Assessment/Plan: pt diet pain control abx debride prn cbc bmp am dc to snf if all clear Subjective Constitutional: Reports: weakness Allergies: Coded Allergies: No Known Allergies (Unverified , 05/05/13) All Systems: reviewed and negative except above Subjective calm sleepy in bed Objective Last 24 Hour Vital Signs Date Time Temp Pulse Resp B/P (MAP) Pulse Ox O2 Delivery O2 Flow Rate FiO2 04/08/19 09:00 Room Air 04/08/19 08:00 98.2 73 16 118/73 (88) 97 04/08/19 04:00 98.4 71 14 121/79 (93) 95 04/08/19 02:43 97.9 04/08/19 00:25 97.9 85 16 95/61 (72) 94 04/07/19 21:00 Room Air 04/07/19 20:00 98.4 65 16 95/65 (75) 99 04/07/19 18:13 98.2 04/07/19 15:52 98.2 70 18 88/60 (69) 04/07/19 12:53 98.2 68 18 90/60 (70) Intake and Output 04/07/19 04/08/19 18:59 06:59 Intake Total 260 ml 710 ml Output Total 700 ml 1375 ml Balance -440 ml -665 ml Intake Oral 260 ml IV Total 710 ml Output Urine Total 700 ml 1375 ml # Bowel Movements 2 Laboratory Tests 04/08/19 07:13: White Blood Count 5.4, Red Blood Count 5.32, Hemoglobin 14.2, Hematocrit 43.7, Mean Corpuscular Volume 82, Mean Corpuscular Hemoglobin 26.7L, Mean Corpuscular Hemoglobin Concent 32.5, Red Cell Distribution Width 12.3, Platelet Count 131L, Mean Platelet Volume 9.2, Neutrophils (%) (Auto) 53.8, Lymphocytes (%) (Auto) 34.4, Monocytes (%) (Auto) 8.8, Eosinophils (%) (Auto) 1.8, Basophils (%) (Auto ) 1.1, Sodium Level 137, Potassium Level 4.2, Chloride Level 103, Carbon Dioxide Level 29, Anion Gap 5, Blood Urea Nitrogen 5L, Creatinine 0.6, Estimat Glomerular Filtration Rate > 60, Glucose Level 101, Calcium Level 9.0 Height (Feet): 5 Height (Inches): 11.00 Weight (Pounds): 150 General Appearance: lethargic EENT: normal ENT inspection Neck: normal alignment Cardiovascular: normal peripheral pulses, normal rate, regular rhythm Respiratory/Chest: chest wall non-tender, lungs clear, normal breath sounds Abdomen: normal bowel sounds, non tender, soft Extremities: normal inspection Edema: no edema noted Arm (L), no edema noted Arm (R), no edema noted Leg (L), no edema noted Leg (R), no edema noted Pedal (L), no edema noted Pedal (R), no edema noted Generalized Neurologic: motor weakness Skin: normal pigmentation, warm/dry Nba Hdz DO April 08, 2019 12:09
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
[2019-04-08] MEDS: D5 1/2NS 1,000 ML IV SCH ×2 (13:31→15:35)
--- NOTE | 2019-04-08 14:21 | NUR ---
*-* INSURANCE *-* UPDATED CLINICALS AND REVIEWS HAVE BEEN FAXED TO: [facility] REF#[id number] NCM:ROYA DOYLE [phone] [phone]
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
[2019-04-08 16:00] VITALS: BP 95/64
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
[2019-04-08] MEDS ORDERED: D5 1/2NS 1000ml IV ONE (17:13)
--- NOTE | 2019-04-08 18:05 | NUR ---
NURSE NOTES: Patient refused all scheduled doses of effexor. Risks versus benefits explained.
--- NOTE | 2019-04-08 19:32 | NUR ---
HAND-OFF: Report given to MELISA Gong.
--- NOTE | 2019-04-08 19:46 | NUR ---
NURSE NOTES: RECEIVED PT FROM MELISA SIMS. PT IS ASLEEP, UNLABORED BREATHING, NO ACUTE DISTRESS NOTED. PT HAS A PATENT IV NO R UPPER ARM 22G, NO REDNESS OR SWELLING NOTED. BED IS LOCKED AT THE LOWEST POSITION, BED ALARMS ACTIVE, SIDE RAILS UP X2, AND CALL LIGHT IS WITHIN REACH. WILL CONTINUE TO MONITOR.
[2019-04-08 20:00] VITALS: BP 103/63
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
[2019-04-08] MEDS: Terazosin 1mg cap ORAL SCH (20:12)
--- NOTE | 2019-04-08 21:05 | NUR ---
NURSE NOTES: OBTAINED ORDER TO HOLD HEPARIN FOR TONIGHT. PL COUNT 131.
[2019-04-08] MEDS: HYDROcodone/Acetamin 5/325 tab ORAL PRN (21:14)
[2019-04-09] VITALS: BP 110/68
[2019-04-09] MEDS: D5W IV SCH ×2 (03:10→09:42)
[2019-04-09] MEDS: CEFTAZIDIME IV SCH ×2 (03:10→09:42)
--- NOTE | 2019-04-09 03:47 | NUR ---
NURSE NOTES: PT REFUSED ACCU CHECK, VS AND TO BE TURNED. Addendum: 04/09/19 at 0508 by Myesha Cowan RN DISREGARD NOTE. WRONG PT.
[2019-04-09 04:00] VITALS: BP 110/65
[2019-04-09 06:31] LABS: BASOPHILS % (AUTO) 1.5 % (0.0-2.0); EOSINOPHILS % (AUTO) 1.3 % (0.0-3.0); HEMATOCRIT 45.3 % (42.0-52.0); HEMOGLOBIN 14.7 G/DL (14.2-18.0); MEAN CORPUSCULAR VOLUME 83 FL (80-99); MONOCYTES % (AUTO) 10.2 % (1.0-10.0); NEUTROPHILS % (AUTO) 48.9 % (45.0-75.0); PLATELET COUNT 126 K/UL (150-450); RED BLOOD COUNT 5.47 M/UL (4.70-6.10); RED CELL DISTRIBUTION WIDTH 12.5 % (11.6-14.8); WHITE BLOOD COUNT 4.9 K/UL (4.8-10.8)
[2019-04-09 06:47] LABS: ANION GAP 4 mmol/L (5-15); BLOOD UREA NITROGEN 4 mg/dL (7-18); CALCIUM 9.1 MG/DL (8.5-10.1); CARBON DIOXIDE 31 MMOL/L (21-32); CHLORIDE 104 MMOL/L (98-107); CREATININE 0.6 MG/DL (0.55-1.30); SODIUM 139 MMOL/L (136-145)
--- NOTE | 2019-04-09 07:30 | NUR ---
HAND-OFF: Report given to Celina VINCENT.
--- NOTE | 2019-04-09 07:38 | NUR ---
NURSE NOTES: pt in bed with no sob nor in any form of distress noted. Breathing regular and unlabored. Denies pain at this time. repositioned Q2hrs. Bed in lowest position. call light within reach at all time. will continue to monitor
[2019-04-09 08:00] VITALS: BP 126/73
[2019-04-09] MEDS: Docusate 100mg cap ORAL SCH (08:20)
[2019-04-09] MEDS: Venlafaxine 25mg tab ORAL SCH ×2 (08:21→12:11)
[2019-04-09] MEDS: Fluconazole 100mg tab ORAL SCH (08:21)
[2019-04-09] MEDS: Heparin 5000 units/ml inj SUBQ SCH (08:22)
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
[2019-04-09] MEDS: D5 1/2NS 1,000 ML IV SCH (09:44)
[2019-04-09] MEDS: Fleet's Enema 133ml RECTAL PRN (09:45)
--- NOTE | 2019-04-09 11:36 | NUR ---
*-* INSURANCE *-* UPDATED CLINICALS HAVE BEEN FAXED TO: [employer] REF#[id number] NCM:ROYA DOYLE [phone] [phone]
[2019-04-09 12:00] VITALS: BP 91/63
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
--- NOTE | 2019-04-09 13:10 | NUR ---
RD ASSESSMENT & RECOMMENDATIONS SEE CARE ACTIVITY FOR COMPLETE ASSESSMENT DAILY ESTIMATED NEEDS: Needs based on wound, quadraplegia, 66kg 25-30 kcals/kg 7268-6719 total kcals 1.25-1.5 g protein/kg 83-99 g total protein 25-30 mL/kg 9956-2504 total fluid mLs NUTRITION DIAGNOSIS: * Increased kcal/prot intake needs R/T wound healing as evidenced by pt admitted w/ multiple pressure wounds, refer to WC belleal. CURRENT DIET: Regular PO DIET RECOMMENDATIONS: REGULAR/ texture as tolerated ADDITIONAL RECOMMENDATIONS: * Calibrated bedscale wt for accurate CBW Conflicting wts: Bed scale 145.6# vs EMR 150# * Wound care: add MVI x 1, Vit C 250mg BID : Pt agreeable to Ministerio 1pkt BID: added to breakfast + lunch tray Monitor acceptance of Ministerio closely * K low (2.9), check lytes daily, replete as needed
--- NOTE | 2019-04-09 14:08 | NUR ---
[employer] SI:SACRAL DECUBITUS ULCER VS: BP 97/63, P 73, T 97.5, RR 19, SpO2 98 BUN 4 IS:NOR[place] 5/325 1tab EFFEXOR 25mg GABAPENTIN 600mg D5/NS x1L IV ZANAFLEX 4mG MED/SURG STATUS
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
[2019-04-09] MEDS: HYDROcodone/Acetamin 5/325 tab ORAL PRN (14:17)
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
--- NOTE | 2019-04-09 14:42 | General Progress Note ---
Assessment/Plan Problem List: (1) UTI (lower urinary tract infection) ICD Codes: N39.0 - Urinary tract infection, site not specified SNOMED: 1668352 (2) Quadriplegia ICD Codes: G82.50 - Quadriplegia, unspecified SNOMED: 12460020 (3) Sacral decubitus ulcer ICD Codes: L89.159 - Pressure ulcer of sacral region, unspecified stage SNOMED: 826781855 Qualifiers: Qualified Codes: L89.152 - Pressure ulcer of sacral region, stage 2 Status: stable, progressing Assessment/Plan: pt diet pain control abx debride prn dc if clear Subjective Constitutional: Reports: weakness Allergies: Coded Allergies: No Known Allergies (Unverified , 05/05/13) All Systems: reviewed and negative except above Subjective calm in bed wants to go home Objective Last 24 Hour Vital Signs Date Time Temp Pulse Resp B/P (MAP) Pulse Ox O2 Delivery O2 Flow Rate FiO2 04/09/19 12:00 98.1 73 19 91/63 (72) 98 04/09/19 09:21 97.5 04/09/19 09:00 Room Air 04/09/19 08:00 97.7 66 18 126/73 (90) 99 04/09/19 04:00 97.5 77 18 110/65 (80) 99 04/09/19 00:00 97.3 77 19 110/68 (82) 98 04/08/19 21:00 Room Air 04/08/19 20:00 97.0 75 19 103/63 (76) 100 04/08/19 16:00 98.4 73 17 95/64 (74) 98 Intake and Output 04/08/19 04/09/19 18:59 06:59 Intake Total 2710 ml 775 ml Output Total 975 ml Balance 1735 ml 775 ml Intake Oral 2000 ml IV Total 710 ml 775 ml Output Urine Total 975 ml # Voids 4 Laboratory Tests 04/09/19 06:15: White Blood Count 4.9, Red Blood Count 5.47, Hemoglobin 14.7, Hematocrit 45.3, Mean Corpuscular Volume 83, Mean Corpuscular Hemoglobin 26.9L, Mean Corpuscular Hemoglobin Concent 32.4, Red Cell Distribution Width 12.5, Platelet Count 126L, Mean Platelet Volume 9.7, Neutrophils (%) (Auto) 48.9, Lymphocytes (%) (Auto) 38.0, Monocytes (%) (Auto) 10.2H, Eosinophils (%) (Auto) 1.3, Basophils (%) ( Auto) 1.5, Sodium Level 139, Potassium Level 4.0, Chloride Level 104, Carbon Dioxide Level 31, Anion Gap 4L, Blood Urea Nitrogen 4L, Creatinine 0.6, Estimat Glomerular Filtration Rate > 60, Glucose Level 118H, Calcium Level 9.1 Height (Feet): 5 Height (Inches): 11.00 Weight (Pounds): 150 General Appearance: lethargic EENT: normal ENT inspection Neck: normal alignment Cardiovascular: normal peripheral pulses, normal rate, regular rhythm Respiratory/Chest: chest wall non-tender, lungs clear, normal breath sounds Abdomen: normal bowel sounds, non tender, soft Extremities: normal inspection Edema: no edema noted Arm (L), no edema noted Arm (R), no edema noted Leg (L), no edema noted Leg (R), no edema noted Pedal (L), no edema noted Pedal (R), no edema noted Generalized Neurologic: motor weakness Skin: normal pigmentation, warm/dry Nba Hdz DO April 09, 2019 14:42
[2019-04-09] MEDS ORDERED: BACLOFEN10 MG ORAL (15:19)
[2019-04-09] MEDS ORDERED: FORTAZ1 G1 IV (15:21)
[2019-04-09] MEDS ORDERED: FLUCONAZOLE100 MG ORAL (15:25)
[2019-04-09] MEDS ORDERED: DIFLUCAN200 MG ORAL (15:26)
[2019-04-09] MEDS ORDERED: HEPARIN SO5000 UNIT2 SUBQ (15:27)
[2019-04-09] MEDS ORDERED: GABAPENTIN600 MG ORAL (15:27)
[2019-04-09] MEDS ORDERED: NORCO 5-325 TA1 EACH ORAL (15:28)
[2019-04-09] MEDS ORDERED: FLEET ENEMA133 ML RECTAL (15:32)
[2019-04-09] MEDS ORDERED: TIZANIDINE HCL4 MG ORAL (15:34)
[2019-04-09 16:00] VITALS: BP 125/81
[2019-04-09] MEDS ORDERED: D5 1/2NS 1000ml IV ONE (17:49)
[2019-04-09] MEDS ORDERED: Tubing IV Secondary IV ONE (17:49)
--- NOTE | 2019-04-09 17:50 | NUR ---
NURSE NOTES: pt discharged to home with [facility] picked up by ambulance with stable condition. all discharge instruction given to pt and verbalized understanding. informed pt that he will be continue IV ATB x 1 day upon discharge. Per CORAL Jiménez) the iv medication will be delivered to pt's house. Called pt's mother and left a vms that pt is being discharged. VSS. picture taken for sacral. Iv heplock removed and covered with gauze and taped.
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
== END 2019-04-09 17:50 | disposition home health service (06) | DRG 720 ==
LOC: EDBD 20:02 → EMR 21:46 → 4E 22:10 → EDBEDREQ 23:31 → 4E 04-09 11:27
DX: A41.9 Sepsis, unspecified organism (principal); G82.50 Quadriplegia, unspecified; L89.159 Pressure ulcer of sacral region, unspecified stage; G62.9 Polyneuropathy, unspecified; N31.9 Neuromuscular dysfunction of bladder, unspecified; B37.49 Other urogenital candidiasis; J40 Bronchitis, not specified as acute or chronic; W34.00XS Accidental discharge from unspecified firearms or gun, sequela; F17.200 Nicotine dependence, unspecified, uncomplicated; R10.9 Unspecified abdominal pain
CPT/HCPCS: 36415; 71045; 80048; 80053; 81003; 82550; 83605; 83690; 83880; 84484; 85025; 85610; 85651; 85730; 87040; 87070; 87086; 87181; 87205; 93005; 96361; 96365; 96368; 96375; 99285; J2405; J8499

== ENCOUNTER 2019-06-14 15:02 | Inpatient (IN) | payer OTHER ==
[~2019-06-14] VITALS: Ht 177.8 cm; Wt 72.6 kg
[~2019-06-14 15:02] MED LIST changes: +DIFLUCAN200 MG ORAL; +FLEET ENEMA133 ML RECTAL; +FLUCONAZOLE100 MG ORAL; +FORTAZ1 G1 IV; +GABAPENTIN600 MG ORAL; +HEPARIN SO5000 UNIT2 SUBQ
[2019-06-14 15:03] VITALS: BP 107/82
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
[2019-06-14] MEDS ORDERED: Morphine Sulfate 4mg/ml Inj (IV USE ONLY) IVP ONE (15:30)
--- NOTE | 2019-06-14 15:43 | NUR ---
ED Nurse Note: Patient biba from home c/o lower abdominal pain that started 2 days ago. patient is a quadriplegic male for 22 years now. patient rates his pain as a burning sensation. patient is alert and oriented x4, able to follow all commands. IV started on left ac 20 gauge. patient did come in with a condom cath.
[2019-06-14 15:56] LABS: APPEARANCE,URINE SLIGHTLY CLOUDY; BILIRUBIN, URINE NEGATIVE (NEGATIVE); GLUCOSE, URINE (UA) NEGATIVE (NEGATIVE); KETONES,URINE 4+ (NEGATIVE); LEUKOCYTE ESTERASE ,URINE 3+ (NEGATIVE); NITRITE,URINE POSITIVE (NEGATIVE); PH,URINE 6 (4.5-8.0); PROTEIN,URINE 2+ (NEGATIVE); UROBILINOGEN,URINE NORMAL MG/DL (0.0-1.0)
[2019-06-14 15:58] LABS: BASOPHILS % (AUTO) 0.7 % (0.0-2.0); COLOR,URINE YELLOW; EOSINOPHILS % (AUTO) 0.2 % (0.0-3.0); HEMOGLOBIN 15.2 G/DL (14.2-18.0); LYMPHOCYTES % (AUTO) 14.8 % (20.0-45.0); MEAN CORPUSCULAR VOLUME 84 FL (80-99); MONOCYTES % (AUTO) 4.3 % (1.0-10.0); PLATELET COUNT 160 K/UL (150-450); RED BLOOD COUNT 5.51 M/UL (4.70-6.10); RED CELL DISTRIBUTION WIDTH 11.9 % (11.6-14.8); WHITE BLOOD COUNT 6.9 K/UL (4.8-10.8)
[2019-06-14 16:11] LABS: ANION GAP 10 mmol/L (5-15); BLOOD UREA NITROGEN 10 mg/dL (7-18); CALCIUM 9.6 MG/DL (8.5-10.1); CARBON DIOXIDE 25 MMOL/L (21-32); CHLORIDE 100 MMOL/L (98-107); CREATININE 0.8 MG/DL (0.55-1.30); POTASSIUM 3.8 MMOL/L (3.5-5.1); SODIUM 135 MMOL/L (136-145)
[2019-06-14] MEDS ORDERED: Piperacillin/Tazobactam 3.375 GM in NS 110 ML IVPB ONE (16:15)
[2019-06-14] MEDS ORDERED: Vancomycin 1 GM in NS 275 ML IVPB ONE (16:15)
[2019-06-14 16:26] LABS: ALANINE AMINOTRANSFERASE 7 U/L (12-78); ALBUMIN 4.1 G/DL (3.4-5.0); ALKALINE PHOSPHATASE 76 U/L (46-116); ASPARTATE AMINO TRANSFERASE 13 U/L (15-37); BILIRUBIN,TOTAL 1.1 MG/DL (0.2-1.0); CREATINE KINASE 184 U/L (26-308); PHOSPHORUS 3.1 MG/DL (2.5-4.9)
[2019-06-14 16:33] LABS: BILIRUBIN,DIRECT 0.2 MG/DL (0.0-0.3)
[2019-06-14] MEDS ORDERED: Sodium Chloride 2,200 ML IVLG ONE (16:45)
--- NOTE | 2019-06-14 17:15 | NUR ---
TRANSFER TO FLOOR: Patient transferred to [facility] as ordered, per . Report given to MELISA Osei
--- NOTE | 2019-06-14 17:16 | Diagnostic Imaging Report ---
Indication: Chest pain Technique: One view of the chest Comparison: For 2018 Findings: Lungs and pleural spaces are clear. Heart size is normal. There is no significant interim change Impression: No acute process
--- NOTE | 2019-06-14 17:19 | Diagnostic Imaging Report ---
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 The bowel gas pattern is unremarkable. No masses or unusual calcifications. No significant interim change. Or pelvic, likely prosthetic urethral, stent is again demonstrated. Findings are unchanged Impression: No acute process. Findings as noted
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
--- NOTE | 2019-06-14 18:14 | NUR ---
Received report from ED. pt awake, A/O x 4, calm, quadriplegic. VS stable. cond. cath in place, draining yellow urine. Denies pain. no SOB. last BM am x 1. stage II on coccyx with old healed pressure ulcer, picture taken, dressing on. dressing on erin heel for protection. IVF infusing. call light within reach, bed in low position, bed alarm on. fall precution maintained. will continue to monitor.
[2019-06-14 18:32] VITALS: BP 123/70
[2019-06-14] MEDS ORDERED: Zolpidem 5mg tab ORAL PRN (18:45)
[2019-06-14] MEDS ORDERED: Miralax 17gm pkt ORAL PRN (18:45)
[2019-06-14] MEDS ORDERED: LORazepam Inj 2mg/ml 1ml IV PRN (18:45)
--- NOTE | 2019-06-14 19:30 | NUR ---
NURSE NOTES: Received a report from MELISA Osei. [id number]. Able to make needs known. On room air. C/o abdominal pain, rated it 8/10. Will give pain med later. IV site is patent and intact. Condom catheter is draining. Bed in lowest position. Bed alarm is on. Call light within reach. Will continue to monitor.
[2019-06-14 20:00] VITALS: BP 127/76
[2019-06-14] MEDS: Terazosin 1mg cap ORAL SCH (21:14)
[2019-06-14] MEDS: Morphine Sulfate 2mg/ml Inj(IV/IM USE ONLY) IVP PRN (21:16)
[2019-06-14] MEDS: Piperacillin/Tazobactam 3.375 GM in NS 110 ML IVPB SCH (23:07)
[2019-06-15] VITALS: BP 128/76
[2019-06-15 04:00] VITALS: BP 143/75
[2019-06-15] MEDS: Morphine Sulfate 2mg/ml Inj(IV/IM USE ONLY) IVP PRN ×2 (04:48→21:19)
[2019-06-15 07:14] LABS: BASOPHILS % (AUTO) 0.6 % (0.0-2.0); EOSINOPHILS % (AUTO) 1.1 % (0.0-3.0); HEMATOCRIT 41.4 % (42.0-52.0); HEMOGLOBIN 13.4 G/DL (14.2-18.0); LYMPHOCYTES % (AUTO) 18.7 % (20.0-45.0); MEAN CORPUSCULAR VOLUME 86 FL (80-99); MONOCYTES % (AUTO) 6.2 % (1.0-10.0); NEUTROPHILS % (AUTO) 73.4 % (45.0-75.0); PLATELET COUNT 136 K/UL (150-450); RED BLOOD COUNT 4.81 M/UL (4.70-6.10); RED CELL DISTRIBUTION WIDTH 12.7 % (11.6-14.8); WHITE BLOOD COUNT 6.9 K/UL (4.8-10.8)
--- NOTE | 2019-06-15 07:29 | NUR ---
HAND-OFF: Report given to MELISA Clarke.
--- NOTE | 2019-06-15 07:53 | NUR ---
NURSE NOTES: received report from MELISA Bryan. patient in bed. alert. oriented. verbally responsive. no respiratory distress noted. abd discomfort at this time. condom cath draining. no hematuria. yellow.IV on LAC 20g saline intact. quadric plegia. bed bound. the bed in the lowest position. call light within reach. alarm on. will continue to provide plan of care.
[2019-06-15 07:54] LABS: ALANINE AMINOTRANSFERASE < 6 U/L (12-78); ALBUMIN 3.5 G/DL (3.4-5.0); ALBUMIN/GLOBULIN RATIO 1.2 (1.0-2.7); ALKALINE PHOSPHATASE 59 U/L (46-116); ANION GAP 11 mmol/L (5-15); ASPARTATE AMINO TRANSFERASE 14 U/L (15-37); BILIRUBIN,DIRECT 0.2 MG/DL (0.0-0.3); BILIRUBIN,TOTAL 1.2 MG/DL (0.2-1.0); BLOOD UREA NITROGEN 8 mg/dL (7-18); CALCIUM 8.7 MG/DL (8.5-10.1); CARBON DIOXIDE 22 MMOL/L (21-32); CHLORIDE 104 MMOL/L (98-107); CHOLESTEROL 118 MG/DL (< 200); HDL CHOLESTEROL 32 MG/DL (40-60); POTASSIUM 3.6 MMOL/L (3.5-5.1); SODIUM 137 MMOL/L (136-145); TRIGLYCERIDES 42 MG/DL (30-150)
[2019-06-15 08:00] VITALS: BP 119/79
[2019-06-15 08:02] LABS: CREATININE 0.6 MG/DL (0.55-1.30)
[2019-06-15] MEDS: Piperacillin/Tazobactam 3.375 GM in NS 110 ML IVPB SCH ×2 (08:27→16:22)
[2019-06-15] MEDS: Lactulose 20gm/30ml UDC ORAL SCH ×4 (08:28→17:20)
[2019-06-15] MEDS: Docusate 100mg cap ORAL SCH ×2 (08:29→17:16)
[2019-06-15 12:00] VITALS: BP 122/77
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
--- NOTE | 2019-06-15 15:48 | NUR ---
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 UTI VS:BP 107/82, P 82, T 97.5, RR 18, SpO2 98 Na 135, Glucose 118, Mag 1.7, Lactic Acid 3.40 IS:NS x1L IV VANCOMYCIN 275ml IVPB NS x2.2L IVLG ADMITTED TO MED/SURG DCP: RETURN HOME
[2019-06-15 16:00] VITALS: BP 137/77
--- NOTE | 2019-06-15 17:30 | History and Physical Report ---
DATE OF ADMISSION: 06/14/2019 TIME SEEN: 2 p.m. CONSULTANTS: 1. Viraj Rivero M.D 2. Rut Mckinney M.D. CHIEF COMPLAINT: Weakness, chills, dysuria, UTI, sepsis. BRIEF HISTORY: This is a 43-year-old male, paraplegic who lives at home, in the last two days started feeling some dysuria and some chills, came to [place], diagnosed with UTI, sepsis and admitted to medical floor for further treatment. Currently, calm, in bed. No complaint. REVIEW OF SYSTEMS: No chest pain, shortness of breath. No nausea, vomiting, or diarrhea. PAST MEDICAL HISTORY: Includes quadriplegia, neurogenic bladder. PAST SURGICAL HISTORY: None. MEDICATIONS: Baclofen, , gabapentin, lactulose, tizanidine, Zosyn, Hytrin, Tylenol, morphine, Zofran, zolpidem. ALLERGIES: Denies. SOCIAL HISTORY: Positive smoking. No alcohol. Positive marijuana usage. PHYSICAL EXAMINATION: GENERAL: Calm in bed, oriented x3, no acute distress. VITAL SIGNS: Temperature is 97, pulse 59, respirations 19, blood pressure 119/79. CARDIOVASCULAR: No murmur. LUNGS: Distant and clear. ABDOMEN: Bowel sounds positive. Nontender. Nondistended. EXTREMITIES: No cyanosis, clubbing, or edema. NEUROLOGIC: The patient weak below waist area and also some contracture. LABORATORY AND DIAGNOSTIC DATA: Hemoglobin and hematocrit 13/41, platelets 136. BMP is normal. TSH 0.769. Troponin 0.017. Urinalysis showed 3+ leukocyte esterase, 2+ protein. ASSESSMENT: 1. UTI. 2. Sepsis. 3. Paraplegia. PLAN: 1. Pain control. 2. Antibiotics per Infectious Diseases. 3. PT/OT, dietary followup. Nba Hdz D.O. DR: Luisa JOB#: [id number] CC:
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
--- NOTE | 2019-06-15 18:51 | Cardiology Report ---
APPROVED REPORT EKG Measurement Heart [id number] IN [id number] Sinus bradycardia Otherwise normal ECG
--- NOTE | 2019-06-15 19:32 | NUR ---
HAND-OFF: Report given to MELISA Brunner.
--- NOTE | 2019-06-15 19:35 | NUR ---
NURSE NOTES: RECEIVED PT FROM MELISA DEE. PT IS AWAKE, AAOX4, ON ROOM AIR, NO ACUTE DISTRESS NOTED. CONDOM CATH IN INTACT AND DRAINING WELL. OPTIFOAM NOTED ON SACRAL. IV ON LEFT AC 20G IS INTACT AND PATENT. BED IS LOCKED AT THE LOWEST POSITION, BED ALARMS ACTIVE, SIDE RAILS UP X3, AND CALL LIGHT IS WITHIN REACH. WILL CONTINUE TO MONITOR PT.
[2019-06-15 20:00] VITALS: BP 101/76
[2019-06-15] MEDS: Terazosin 1mg cap ORAL SCH (21:00)
[2019-06-16] VITALS: BP 107/72
[2019-06-16] MEDS: Piperacillin/Tazobactam 3.375 GM in NS 110 ML IVPB SCH ×2 (00:26→08:44)
[2019-06-16 04:00] VITALS: BP 130/71
[2019-06-16 06:48] LABS: ANION GAP 12 mmol/L (5-15); BLOOD UREA NITROGEN 5 mg/dL (7-18); CALCIUM 8.7 MG/DL (8.5-10.1); CARBON DIOXIDE 23 MMOL/L (21-32); CHLORIDE 106 MMOL/L (98-107); CREATININE 0.6 MG/DL (0.55-1.30); POTASSIUM 3.5 MMOL/L (3.5-5.1); SODIUM 141 MMOL/L (136-145)
[2019-06-16 06:55] LABS: BASOPHILS % (AUTO) 0.8 % (0.0-2.0); EOSINOPHILS % (AUTO) 1.1 % (0.0-3.0); HEMATOCRIT 40.4 % (42.0-52.0); HEMOGLOBIN 13.2 G/DL (14.2-18.0); LYMPHOCYTES % (AUTO) 28.4 % (20.0-45.0); MEAN CORPUSCULAR VOLUME 85 FL (80-99); MONOCYTES % (AUTO) 6.9 % (1.0-10.0); NEUTROPHILS % (AUTO) 62.8 % (45.0-75.0); PLATELET COUNT 144 K/UL (150-450); RED BLOOD COUNT 4.73 M/UL (4.70-6.10); RED CELL DISTRIBUTION WIDTH 12.1 % (11.6-14.8)
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
--- NOTE | 2019-06-16 07:12 | NUR ---
HAND-OFF: Report given to MELISA GARCIA.
--- NOTE | 2019-06-16 07:27 | NUR ---
NURSE NOTES: Pt resting in bed. pt awake, A/O x 4, calm. pts on P200 bed, turned and reposition. Denies pain. no N/V. tolerating diet well. condom cath in place. dressing on sacral /erin heels, CDI. call Light within reach, bed in low position, bed alarm on. fall precaution maintained. will continue to monitor.
[2019-06-16 08:00] VITALS: BP 139/73
[2019-06-16] MEDS: Lactulose 20gm/30ml UDC ORAL SCH ×3 (08:48→17:14)
[2019-06-16] MEDS: Docusate 100mg cap ORAL SCH ×2 (08:50→17:18)
--- NOTE | 2019-06-16 10:04 | NUR ---
INSURANCE UPDATED CLINICALS and REVIEW HAVE BEEN FAXED PLEASE FAX THE REVIEW AND CLINICAL TO: F/S FAXED TO [facility] NO COMPUTING CONSULTANT ASSIGNED AT THIS TIME. PLEASE FAX THE REVIEW/CLINICAL P- [phone] F- [phone]...REVIEW/CLINICAL
--- NOTE | 2019-06-16 10:20 | NUR ---
P.T Note : P.T evaluation completed. Pt presented long history of quadriplegia with residual spasticity in BUE/LE as well as flexion contractures of BUE. Pt is baseline dependent in all areas of bed mobilities , transfer activities and other self care tasks therefore not a candidate for skilled P.T services. D/C P.T services. thank you for this referral.
[2019-06-16 11:52] VITALS: BP 119/75
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
[2019-06-16 15:41] VITALS: BP 129/79
--- NOTE | 2019-06-16 16:28 | NUR ---
CASE MANAGEMENT:REVIEW 06/16/19 SI: SEPSIS. UTI 98.1 53 16 129/79 99% ON RA H/H-13.2/40.4 PLT-144 IS: BACTRIM PO Q12 NEURONTIN PO TID LACTULOSE PO TID HYTRIN PO QHS : MED/SURG STATUS 4 EAST PLAN: PT EVAL PENDING
--- NOTE | 2019-06-16 19:27 | NUR ---
NURSE NOTES: Received report from MELISA Couch. Patient on bed awake, alert, oriented, and verbally responsive to let his needs known. Patient breathing unlabored and evenly without distress, discomfort, or SOB noted at this time. Denies pain at this time. Bed placed at the lowest with alarm, brakes, and side rails up x 2 for safety measures. Patient has SCDs on and working. Patient noted with LAC 20g currently running TKO 5 cc/hr per patient request. Condom cath noted intact and patent draining yellow urine at this time. Call light placed within reach. Will continue to monitor and provide care as ordered.
--- NOTE | 2019-06-16 19:27 | NUR ---
HAND-OFF: Report given to Azalia VINCENT.
[2019-06-16 20:00] VITALS: BP 132/82
[2019-06-16] MEDS: Terazosin 1mg cap ORAL SCH (21:20)
[2019-06-16] MEDS: Bactrim-DS 1 tab ORAL SCH (21:20)
[2019-06-17] VITALS: BP 140/75
[2019-06-17 04:00] VITALS: BP 100/59
--- NOTE | 2019-06-17 05:18 | NUR ---
NURSE NOTES: Provided dressing change on sacral as ordered. Noticed healing from the picture taken at 06/14/19. Patient tolerated the procedure well. Will continue to monitor and provide care as ordered.
[2019-06-17 06:27] LABS: EOSINOPHILS % (AUTO) 1.2 % (0.0-3.0); HEMATOCRIT 43.5 % (42.0-52.0); LYMPHOCYTES % (AUTO) 32.9 % (20.0-45.0); MEAN CORPUSCULAR VOLUME 86 FL (80-99); MONOCYTES % (AUTO) 7.1 % (1.0-10.0); NEUTROPHILS % (AUTO) 57.8 % (45.0-75.0); PLATELET COUNT 142 K/UL (150-450); RED BLOOD COUNT 5.06 M/UL (4.70-6.10); RED CELL DISTRIBUTION WIDTH 12.5 % (11.6-14.8); WHITE BLOOD COUNT 5.5 K/UL (4.8-10.8)
[2019-06-17 07:07] LABS: ANION GAP 12 mmol/L (5-15); BLOOD UREA NITROGEN 4 mg/dL (7-18); CALCIUM 8.9 MG/DL (8.5-10.1); CARBON DIOXIDE 23 MMOL/L (21-32); CHLORIDE 105 MMOL/L (98-107); CREATININE 0.6 MG/DL (0.55-1.30); POTASSIUM 3.7 MMOL/L (3.5-5.1); SODIUM 140 MMOL/L (136-145)
--- NOTE | 2019-06-17 07:21 | NUR ---
NURSE NOTES: Pt resting in bed. Denies pain, no SOB noted. p200 bed, turned and reposition, bed alarm on. call light within reach. fall precaution maintained. will continue to monitor.
--- NOTE | 2019-06-17 07:32 | NUR ---
HAND-OFF: Report given to MELISA Couch. Patient in stable condition.
[2019-06-17 08:00] VITALS: BP 106/72
[2019-06-17] MEDS: Bactrim-DS 1 tab ORAL SCH ×2 (08:23→20:46)
[2019-06-17] MEDS: Docusate 100mg cap ORAL SCH ×2 (08:23→17:14)
[2019-06-17] MEDS: Lactulose 20gm/30ml UDC ORAL SCH ×3 (08:25→17:17)
[2019-06-17] MEDS ORDERED: Fleet's Enema 133ml RECTAL PRN (09:45)
[2019-06-17 12:00] VITALS: BP 113/67
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
[2019-06-17 16:00] VITALS: BP 103/66
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
--- NOTE | 2019-06-17 16:58 | NUR ---
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 PLEASE FAX THE REVIEW/CLINICAL P- [phone] F- [phone]...REVIEW/CLINICAL
--- NOTE | 2019-06-17 17:13 | NUR ---
ANIMAL PHYSIOLOGISTPIVOT MAKER SI:SEPSIS . UTI VS: BP 100/59, P 59, T 98.9, RR 18, SpO2 98 Hgb 14.0, Plt.COUNT 142, BUN 4 IS:GABAPENTIN 100mg BACLOFEN 20mg ZANAFLEX 4mg HYTRIN 4mg PLAN: CBC & BMP PT MED/SURG STATUS
--- NOTE | 2019-06-17 19:59 | NUR ---
NURSE NOTES: received patient comfortably sleeping, kept clean and dry.
[2019-06-17 20:19] VITALS: BP 111/71
[2019-06-17] MEDS: Terazosin 1mg cap ORAL SCH (20:46)
[2019-06-17] MEDS: Morphine Sulfate 2mg/ml Inj(IV/IM USE ONLY) IVP PRN (20:55)
[2019-06-18] VITALS: BP 114/70
[2019-06-18] MEDS: Morphine Sulfate 2mg/ml Inj(IV/IM USE ONLY) IVP PRN (03:20)
[2019-06-18 04:00] VITALS: BP 102/59
[2019-06-18 06:54] LABS: BASOPHILS % (AUTO) 0.7 % (0.0-2.0); EOSINOPHILS % (AUTO) 1.4 % (0.0-3.0); HEMATOCRIT 45.1 % (42.0-52.0); HEMOGLOBIN 14.5 G/DL (14.2-18.0); LYMPHOCYTES % (AUTO) 35.7 % (20.0-45.0); MEAN CORPUSCULAR VOLUME 86 FL (80-99); MONOCYTES % (AUTO) 7.7 % (1.0-10.0); NEUTROPHILS % (AUTO) 54.5 % (45.0-75.0); PLATELET COUNT 150 K/UL (150-450); RED BLOOD COUNT 5.25 M/UL (4.70-6.10); RED CELL DISTRIBUTION WIDTH 12.5 % (11.6-14.8)
--- NOTE | 2019-06-18 07:10 | NUR ---
HAND-OFF: Report given to Celina Abebe RN.
[2019-06-18 07:15] LABS: ANION GAP 9 mmol/L (5-15); BLOOD UREA NITROGEN 6 mg/dL (7-18); CALCIUM 8.8 MG/DL (8.5-10.1); CARBON DIOXIDE 26 MMOL/L (21-32); CHLORIDE 104 MMOL/L (98-107); CREATININE 0.7 MG/DL (0.55-1.30); POTASSIUM 3.5 MMOL/L (3.5-5.1); SODIUM 139 MMOL/L (136-145)
[2019-06-18 08:00] VITALS: BP 121/70
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
[2019-06-18] MEDS: Docusate 100mg cap ORAL SCH ×2 (08:57→09:02)
[2019-06-18] MEDS: Lactulose 20gm/30ml UDC ORAL SCH ×2 (09:00→12:14)
[2019-06-18] MEDS: Bactrim-DS 1 tab ORAL SCH (09:01)
--- NOTE | 2019-06-18 10:39 | NUR ---
*-* INSURANCE *-* UPDATED CLINICALS AND REVIEWS HAVE BEEN FAXED TO: [employer] NO FRONT END DEVELOPER ASSIGNED AT THIS TIME. PLEASE FAX THE REVIEW/CLINICAL P- [phone] F- [phone]...REVIEW/CLINICAL
--- NOTE | 2019-06-18 11:14 | NUR ---
NURSE NOTES: pt in bed with no sob nor in any form of distress noted. Breathing regular and unlabored. denies pain at this time. noted with discharge order. pt refused to be discharged to snf but home. will let CM aware. call light within reach at all time. will continue to monitor
[2019-06-18 12:00] VITALS: BP 100/65
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
--- NOTE | 2019-06-18 14:15 | NUR ---
NURSE NOTES: pt discharged to home picked up by ambulance with stable condition. pt denies any pain nor discomfort. all discharge instruction given to pt and verbalized understanding. iv heplock removed and covered with gauze and taped. all belongings given to pt. Called and spoke with pt's mother (Nora) and made aware of pt's discharge to home.
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
--- NOTE | 2019-06-21 13:33 | NUR ---
*-* INSURANCE *-* DISCHARGE SUMMARY HAS BEEN FAXED TO: [employer] NO QUALITY SYSTEM MANAGER ASSIGNED AT THIS TIME. PLEASE FAX THE REVIEW/CLINICAL P- [phone] F- [phone]...REVIEW/CLINICAL
== END 2019-06-18 14:12 | disposition home or self-care (01) | DRG 720 ==
LOC: EDBD 15:02 → EMR 15:50 → 4E 16:00 → EDBEDREQ 16:35 → 4E 06-17 11:28
DX: A41.9 Sepsis, unspecified organism (principal); G82.50 Quadriplegia, unspecified; L89.151 Pressure ulcer of sacral region, stage 1; N31.9 Neuromuscular dysfunction of bladder, unspecified; S14.104S Unspecified injury at C4 level of cervical spinal cord, sequela; G62.9 Polyneuropathy, unspecified; N39.0 Urinary tract infection, site not specified; B95.2 Enterococcus as the cause of diseases classified elsewhere; B96.5 Pseudomonas (aeruginosa) (mallei) (pseudomallei) as the cause of diseases classified elsewhere; W34.00XS Accidental discharge from unspecified firearms or gun, sequela; I10 Essential (primary) hypertension; M24.50 Contracture, unspecified joint
CPT/HCPCS: 36415; 71045; 74018; 80048; 80053; 80061; 81003; 82248; 82550; 83605; 83690; 83735; 83880; 84100; 84443; 84484; 85025; 85610; 85730; 87040; 87086; 87181; 93005; 96365; 96368; 96375; 99285; J2405

== ENCOUNTER 2019-07-23 11:48 | Inpatient (IN) | payer OTHER ==
[~2019-07-23] VITALS: Ht 177.8 cm; Wt 76.2 kg
[2019-07-23] MEDS ORDERED: Isovue-300 100ml vial INJ PRN (12:00)
[2019-07-23 12:32] LABS: APPEARANCE,URINE SLIGHTLY CLOUDY; BILIRUBIN, URINE NEGATIVE (NEGATIVE); GLUCOSE, URINE (UA) NEGATIVE (NEGATIVE); KETONES,URINE 3+ (NEGATIVE); LEUKOCYTE ESTERASE ,URINE 3+ (NEGATIVE); NITRITE,URINE POSITIVE (NEGATIVE); PH,URINE 6 (4.5-8.0); PROTEIN,URINE NEGATIVE (NEGATIVE); UROBILINOGEN,URINE NORMAL MG/DL (0.0-1.0)
[2019-07-23 12:33] LABS: BASOPHILS % (AUTO) 0.9 % (0.0-2.0); EOSINOPHILS % (AUTO) 0.4 % (0.0-3.0); HEMATOCRIT 45.3 % (42.0-52.0); HEMOGLOBIN 14.4 G/DL (14.2-18.0); LYMPHOCYTES % (AUTO) 23.2 % (20.0-45.0); MEAN CORPUSCULAR VOLUME 87 FL (80-99); NEUTROPHILS % (AUTO) 71.6 % (45.0-75.0); PLATELET COUNT 102 K/UL (150-450); RED BLOOD COUNT 5.23 M/UL (4.70-6.10); RED CELL DISTRIBUTION WIDTH 12.3 % (11.6-14.8); WHITE BLOOD COUNT 5.7 K/UL (4.8-10.8)
[2019-07-23 12:35] LABS: COLOR,URINE YELLOW
[2019-07-23 12:41] LABS: ANION GAP 9 mmol/L (5-15); BLOOD UREA NITROGEN 7 mg/dL (7-18); CALCIUM 9.3 MG/DL (8.5-10.1); CARBON DIOXIDE 24 MMOL/L (21-32); CHLORIDE 104 MMOL/L (98-107); CREATININE 0.6 MG/DL (0.55-1.30); SODIUM 137 MMOL/L (136-145)
[2019-07-23 12:49] LABS: ALANINE AMINOTRANSFERASE 7 U/L (12-78); ALBUMIN 3.6 G/DL (3.4-5.0); ALBUMIN/GLOBULIN RATIO 0.9 (1.0-2.7); ALKALINE PHOSPHATASE 65 U/L (46-116); ASPARTATE AMINO TRANSFERASE 12 U/L (15-37); BILIRUBIN,TOTAL 0.9 MG/DL (0.2-1.0)
[2019-07-23] MEDS ORDERED: UNOBMED (13:11)
[2019-07-23] MEDS ORDERED: cefTRIAXone 1 GM in NS 55 ML IVPB ONE (13:15)
--- NOTE | 2019-07-23 14:00 | Diagnostic Imaging Report ---
Clinical Indication: Abdominal pain Technique: No oral contrast utilized, per emergency room physician request IV administration nonionic contrast. Venous phase spiral acquisition obtained through the abdomen and pelvis. Multiplanar reconstructions were generated. Total dose length product 856.62 mGycm. CTDIvol(s) 17.49 mGy. Dose reduction achieved using automated exposure control Comparison: Noncontrast study dated 11/13/2013 Findings: Lack of enteric contrast limits assessment of the GI tract. The appendix is normal. No evidence of diverticulosis or diverticulitis. There is mild wall thickening of the rectum and slight infiltration of the perirectal fat. Appearance is somewhat similar to although perhaps slightly more striking than the previous exam. There is a moderate amount of retained stool diffusely. The distal esophagus, stomach, duodenum are unremarkable. No small bowel distention. There is diastasis of the rectus abdominis tendon without beena herniation. No free or loculated peritoneal gas or fluid is evident. Again demonstrated is an inferior vena cava filter. This is completely disrupted and deformed, but orientation/configuration is unchanged from the previous exam. The inferior vena cava remains patent. The gallbladder contains multiple gallstones. Normal caliber bile ducts. The liver demonstrates a a few subcentimeter low-attenuation lesions which are too small to characterize the pancreas, spleen, adrenals, left kidney are unremarkable. The right kidney demonstrates multiple calyceal calculi, also previously evident. No ureteral calculi, hydronephrosis, or hydroureter. The bladder demonstrates marked wall thickening. A tubular foreign body is seen in the bulbar urethra, also evident previously. Calcifications are again demonstrated within the prostate. Thickening of the retrococcygeal subcutaneous fat is noted, slightly increased from the previous exam. There is suggestion of some destructive change of the proximal coccyx, probably not significant changed. Posterior dependent atelectatic changes are seen at the lung bases. The bones demonstrate degenerative spondylosis changes. Impression: Limited assessment of the GI tract, due to lack of enteric contrast demonstration Mild rectal wall thickening is slight infiltration of the perirectal fat. Somewhat similar to but more striking than seen on the prior CT scan of 11/03/2013. Findings could indicate proctitis. Correlation with clinical findings is recommended. Moderate retained stool, correlate with any clinical history of constipation Marked bladder wall thickening. Could indicate acute cystitis or be on the basis of chronic bladder outlet obstruction Tubular structure in the prostatic urethra, probably representing a urethral stent, also evident previously. Cholelithiasis Evidence of mild retrococcygeal decubitus changes. Some destructive changes of the coccyx appears similar to the prior exam, probably chronic. 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 Apparent preserved inferior vena caval patency Nonobstructive right nephrolithiasis Subcentimeter low-attenuation liver lesions, too small to characterize, most likely benign simple cysts or bile hamartomas. No further follow-up necessary Diastasis of the rectus abdominis tendon without beena herniation Incidental finding of posterior dependent pulmonary parenchymal atelectatic changes and degenerative spondylosis The CT scanner at [facility] is accredited by the [employer] and the scans are performed using protocols designed to limit radiation exposure to as low as reasonably achievable to attain images of sufficient resolution adequate for diagnostic evaluation.
[2019-07-23 14:41] VITALS: BP 119/71
[2019-07-23] MEDS ORDERED: HYDROcodone/Acetamin 5/325 tab ORAL ONE (15:30)
--- NOTE | 2019-07-23 15:49 | Emergency Room Report ---
History of Present Illness General Chief Complaint: Abdominal Pain Source: Medical Record Present Illness Allergies: Coded Allergies: No Known Allergies (Unverified , 05/05/13) Nursing Documentation-PMH Hx Hypertension: Yes Hx Pacemaker: No Hx Asthma: No Hx COPD: No Hx Diabetes: No Hx Cancer: No Hx Gastrointestinal Problems: No Hx Cerebrovascular Accident: No Hx Seizures: No Hx Paralysis: Yes - quadriplegic Hx Peripheral Neuropathy: Yes Physical Exam Vital Signs Date Time Temp Pulse Resp B/P (MAP) Pulse Ox O2 Delivery O2 Flow Rate FiO2 07/23/19 11:33 98.1 82 16 96/50 (65) 98 Room Air Medical Decision Making Diagnostic Impression: Primary Impression: UTI (lower urinary tract infection) Additional Impression: Proctitis Laboratory Tests Test 07/23/19 12:09 White Blood Count 5.7 K/UL (4.8-10.8) Red Blood Count 5.23 M/UL (4.70-6.10) Hemoglobin 14.4 G/DL (14.2-18.0) Hematocrit 45.3 % (42.0-52.0) Mean Corpuscular Volume 87 FL (80-99) Mean Corpuscular Hemoglobin 27.5 PG (27.0-31.0) Mean Corpuscular Hemoglobin Concent 31.8 G/DL (32.0-36.0) L Red Cell Distribution Width 12.3 % (11.6-14.8) Platelet Count 102 K/UL (150-450) L Mean Platelet Volume 9.4 FL (6.5-10.1) Neutrophils (%) (Auto) 71.6 % (45.0-75.0) Lymphocytes (%) (Auto) 23.2 % (20.0-45.0) Monocytes (%) (Auto) 4.0 % (1.0-10.0) Eosinophils (%) (Auto) 0.4 % (0.0-3.0) Basophils (%) (Auto) 0.9 % (0.0-2.0) Urine Color Yellow Urine Appearance Slightly cloudy Urine pH 6 (4.5-8.0) Urine Specific [place] 1.010 (1.005-1.035) Urine Protein Negative (NEGATIVE) Urine Glucose (UA) Negative (NEGATIVE) Urine Ketones 3+ (NEGATIVE) H Urine Blood 1+ (NEGATIVE) H Urine Nitrite Positive (NEGATIVE) H Urine Bilirubin Negative (NEGATIVE) Urine Urobilinogen Normal MG/DL (0.0-1.0) Urine Leukocyte Esterase 3+ (NEGATIVE) H Urine RBC 0-2 /HPF (0 - 0) H Urine WBC 10-15 /HPF (0 - 0) H Urine Squamous Epithelial Cells Occasional /LPF Urine Bacteria Many /HPF (NONE) H Sodium Level 137 MMOL/L (136-145) Potassium Level 4.0 MMOL/L (3.5-5.1) Chloride Level 104 MMOL/L (98-107) Carbon Dioxide Level 24 MMOL/L (21-32) Anion Gap 9 mmol/L (5-15) Blood Urea Nitrogen 7 mg/dL (7-18) Creatinine 0.6 MG/DL (0.55-1.30) Estimate Glomerular Filtration Rate > 60 mL/min (>60) Glucose Level 111 MG/DL (74-106) H Calcium Level 9.3 MG/DL (8.5-10.1) Total Bilirubin 0.9 MG/DL (0.2-1.0) Aspartate Amino Transferase (AST) 12 U/L (15-37) L Alanine Aminotransferase (ALT) 7 U/L (12-78) L Alkaline Phosphatase 65 U/L (46-116) Total Protein 7.4 G/DL (6.4-8.2) Albumin 3.6 G/DL (3.4-5.0) Globulin 3.8 g/dL Albumin/Globulin Ratio 0.9 (1.0-2.7) L Lipase 63 U/L (73-393) L CT/MRI/US Diagnostic Results CT/MRI/US Diagnostic Results : Imaging Test Ordered: CT abd/pelvis Impression Impression: Limited assessment of the GI tract, due to lack of enteric contrast demonstration Mild rectal wall thickening is slight infiltration of the perirectal fat. Somewhat similar to but more striking than seen on the prior CT scan of 11/03/2013. Findings could indicate proctitis. Correlation with clinical findings is recommended. Moderate retained stool, correlate with any clinical history of constipation Marked bladder wall thickening. Could indicate acute cystitis or be on the basis of chronic bladder outlet obstruction Tubular structure in the prostatic urethra, probably representing a urethral stent, also evident previously. Cholelithiasis Evidence of mild retrococcygeal decubitus changes. Some destructive changes of the coccyx appears similar to the prior exam, probably chronic. 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 Apparent preserved inferior vena caval patency Nonobstructive right nephrolithiasis Subcentimeter low-attenuation liver lesions, too small to characterize, most likely benign simple cysts or bile hamartomas. No further follow-up necessary Diastasis of the rectus abdominis tendon without beena herniation Incidental finding of posterior dependent pulmonary parenchymal atelectatic changes and degenerative spondylosis Last Vital Signs Date Time Temp Pulse Resp B/P (MAP) Pulse Ox O2 Delivery O2 Flow Rate FiO2 07/23/19 14:41 98.3 50 18 119/71 99 Room Air Referrals: NON PHYSICIAN (PCP) Skyla Mercer DO Jul 23, 2019 15:49
[2019-07-23] MEDS ORDERED: Albuterol/Ipratropium 3ml neb HHN PRN (17:45)
[2019-07-23] MEDS ORDERED: Miralax 17gm pkt ORAL PRN (17:45)
[2019-07-23] MEDS ORDERED: TERAZOSIN HCL10 MG ORAL (18:06)
[2019-07-23 20:00] VITALS: BP 154/79
[2019-07-23] MEDS ORDERED: Vancomycin 1 GM in D5W 275 ML IVPB ONE (20:00)
[2019-07-23] MEDS: Heparin 5000 units/ml inj SUBQ SCH (21:00)
[2019-07-23] MEDS: Cefepime HCl 2 GM in D5W 110 ML IV SCH (22:42)
[2019-07-24] VITALS (7 sets, daily range): BP systolic 86–121; BP diastolic 45–68
[2019-07-24] MEDS: Morphine Sulfate 2mg/ml Inj(IV/IM USE ONLY) IVP PRN ×2 (01:42→08:26)
[2019-07-24] MEDS: Vancomycin 750mg/NS 275ml IVPB SCH ×6 (04:07→20:18)
[2019-07-24 07:23] LABS: BASOPHILS % (AUTO) 1.1 % (0.0-2.0); EOSINOPHILS % (AUTO) 1.6 % (0.0-3.0); HEMOGLOBIN 13.3 G/DL (14.2-18.0); LYMPHOCYTES % (AUTO) 36.2 % (20.0-45.0); MEAN CORPUSCULAR VOLUME 86 FL (80-99); MONOCYTES % (AUTO) 7.5 % (1.0-10.0); NEUTROPHILS % (AUTO) 53.6 % (45.0-75.0); PLATELET COUNT 129 K/UL (150-450); RED BLOOD COUNT 4.87 M/UL (4.70-6.10); RED CELL DISTRIBUTION WIDTH 12.4 % (11.6-14.8); WHITE BLOOD COUNT 5.5 K/UL (4.8-10.8)
[2019-07-24 07:52] LABS: ALANINE AMINOTRANSFERASE 9 U/L (12-78); ALBUMIN 3.2 G/DL (3.4-5.0); ALBUMIN/GLOBULIN RATIO 0.9 (1.0-2.7); ALKALINE PHOSPHATASE 60 U/L (46-116); ANION GAP 11 mmol/L (5-15); ASPARTATE AMINO TRANSFERASE 11 U/L (15-37); BILIRUBIN,TOTAL 0.9 MG/DL (0.2-1.0); BLOOD UREA NITROGEN 5 mg/dL (7-18); CALCIUM 8.6 MG/DL (8.5-10.1); CARBON DIOXIDE 23 MMOL/L (21-32); CHLORIDE 106 MMOL/L (98-107); CREATININE 0.5 MG/DL (0.55-1.30); POTASSIUM 3.9 MMOL/L (3.5-5.1); SODIUM 140 MMOL/L (136-145)
[2019-07-24] MEDS: Heparin 5000 units/ml inj SUBQ SCH ×2 (08:25→20:19)
[2019-07-24] MEDS: Cefepime HCl 2 GM in D5W 110 ML IV SCH ×2 (08:29→23:15)
--- NOTE | 2019-07-24 10:30 | History and Physical Report ---
DATE OF ADMISSION: 07/23/2019 TIME SEEN: 9 a.m. CONSULTANTS: 1. Rut Mckinney M.D. 2. Viraj Rivero M.D. 3. Chris Monge M.D. CHIEF COMPLAINT: Hematuria, UTI, proctitis, failure to thrive, quadriplegia. BRIEF HISTORY: The patient is a 43-year-old male, who lives at home with mother. He has quadriplegia, apparently experienced some hematuria since . The patient came to [place], diagnosed with urinary tract infection, proctitis, hematuria and admitted to medical floor for further treatment. Currently, calm in bed, sleepy, weak no complaint. REVIEW OF SYSTEMS: No chest pain. No shortness of breath. No nausea, vomiting, or diarrhea. PAST MEDICAL HISTORY: Includes quadriplegia, failure to thrive, kidney stone. PAST SURGICAL HISTORY: None. MEDICATIONS: Include vancomycin, cefepime, heparin, gabapentin, baclofen, Zanaflex, albuterol, Tylenol, morphine, Zofran, temazepam. ALLERGIES: Denies. SOCIAL HISTORY: Positive smoke. Positive alcohol. Positive marijuana use. PHYSICAL EXAMINATION: GENERAL: Calm in bed, oriented x3, no acute distress. VITAL SIGNS: Show temperature is 97 degrees, pulse 58, respiratory rate 16, blood pressure 121/68. CARDIOVASCULAR: No murmurs. LUNGS: Distant and clear. ABDOMEN: Bowel sounds positive. Nontender. Nondistended. EXTREMITIES: No cyanosis, clubbing, or edema. NEUROLOGIC: The patient flaccid, below the waist, otherwise normal. LABORATORY AND DIAGNOSTIC DATA: Hemoglobin 13, platelet 129 otherwise CBC is normal. BUN and creatinine is 5 and 0.5, glucose 71. AST 11 and ALT ____. Albumin 3.2. Urinalysis shows 3+ ketone, 1+ blood, positive nitrite, 3+ leukocyte esterase. ASSESSMENT: 1. Urinary tract infection. 2. Proctitis. 3. Hematuria. 4. Failure to thrive. 5. Quadriplegia. PLAN: 1. Antibiotic per Infectious Disease. 2. Pain control. 3. Dietary followup. 4. PT, dietary evaluation. 5. Check CBC and BMP in the morning. 6. We will continue to follow this patient. Nba Hdz D.O. DR: Luisa JOB#: [id number] CC:
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
[2019-07-24] MEDS ORDERED: BENADRYL25 MG ORAL (17:58)
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
[2019-07-25] VITALS: BP 103/72
[2019-07-25 04:00] VITALS: BP 105/69
[2019-07-25] MEDS: Vancomycin 750mg/NS 275ml IVPB SCH ×4 (04:58→12:21)
[2019-07-25 07:50] LABS: BASOPHILS % (AUTO) 0.6 % (0.0-2.0); EOSINOPHILS % (AUTO) 0.9 % (0.0-3.0); HEMATOCRIT 41.3 % (42.0-52.0); HEMOGLOBIN 13.3 G/DL (14.2-18.0); MEAN CORPUSCULAR VOLUME 86 FL (80-99); MONOCYTES % (AUTO) 6.6 % (1.0-10.0); NEUTROPHILS % (AUTO) 61.9 % (45.0-75.0); PLATELET COUNT 131 K/UL (150-450); WHITE BLOOD COUNT 6.2 K/UL (4.8-10.8)
[2019-07-25 08:00] VITALS: BP 105/63
[2019-07-25 08:36] LABS: ANION GAP 11 mmol/L (5-15); BLOOD UREA NITROGEN 5 mg/dL (7-18); CALCIUM 8.7 MG/DL (8.5-10.1); CARBON DIOXIDE 24 MMOL/L (21-32); CHLORIDE 105 MMOL/L (98-107); CREATININE 0.6 MG/DL (0.55-1.30); POTASSIUM 3.7 MMOL/L (3.5-5.1); SODIUM 140 MMOL/L (136-145)
--- NOTE | 2019-07-25 08:38 | General Progress Note ---
Assessment/Plan Problem List: (1) Proctitis ICD Codes: K62.89 - Other specified diseases of anus and rectum SNOMED: 8561957 (2) Paraplegia ICD Codes: G82.20 - Paraplegia SNOMED: 51228841 (3) UTI (lower urinary tract infection) ICD Codes: N39.0 - Urinary tract infection, site not specified SNOMED: 6606920 (4) Sepsis ICD Codes: A41.9 - Sepsis, unspecified organism SNOMED: 60009920 Status: stable, progressing Assessment/Plan: pt diet abx cbc bmp am Subjective Constitutional: Reports: weakness Allergies: Coded Allergies: No Known Allergies (Unverified , 05/05/13) All Systems: reviewed and negative except above Subjective sleepy calm in bed Objective Last 24 Hour Vital Signs Date Time Temp Pulse Resp B/P (MAP) Pulse Ox O2 Delivery O2 Flow Rate FiO2 07/25/19 08:00 98.1 66 18 105/63 (77) 99 07/25/19 07:32 85 21 99 Room Air 21 07/25/19 04:00 97.6 69 18 105/69 (81) 98 07/25/19 00:00 97.3 72 18 103/72 (82) 97 07/24/19 22:30 111/68 (82) 07/24/19 21:00 Room Air 07/24/19 20:00 76 18 99 Room Air 21 07/24/19 20:00 98.7 78 18 86/45 (59) 99 07/24/19 16:00 98.3 57 18 104/66 (79) 99 07/24/19 12:00 96.4 61 16 99/63 (75) 100 07/24/19 09:40 62 18 96 Room Air 21 07/24/19 09:00 Room Air Intake and Output 07/24/19 07/25/19 19:00 07:00 Output Total 1150 ml Balance -1150 ml Output Urine Total 1150 ml Laboratory Tests 07/24/19 18:43: Vancomycin Level Trough 14.5H 07/25/19 06:48: White Blood Count 6.2, Red Blood Count 4.80, Hemoglobin 13.3L, Hematocrit 41.3L , Mean Corpuscular Volume 86, Mean Corpuscular Hemoglobin 27.7, Mean Corpuscular Hemoglobin Concent 32.2, Red Cell Distribution Width 12.0, Platelet Count 131L, Mean Platelet Volume 9.1, Neutrophils (%) (Auto) 61.9, Lymphocytes ( %) (Auto) 30.0, Monocytes (%) (Auto) 6.6, Eosinophils (%) (Auto) 0.9, Basophils (%) (Auto) 0.6, Sodium Level 140, Potassium Level 3.7, Chloride Level 105, Carbon Dioxide Level 24, Anion Gap 11, Blood Urea Nitrogen 5L, Creatinine 0.6, Estimat Glomerular Filtration Rate > 60, Glucose Level 73L, Calcium Level 8.7 Height (Feet): 5 Height (Inches): 10.00 Weight (Pounds): 130 General Appearance: lethargic EENT: normal ENT inspection Neck: normal alignment Cardiovascular: normal peripheral pulses, normal rate, regular rhythm Respiratory/Chest: chest wall non-tender, lungs clear, normal breath sounds Abdomen: normal bowel sounds, non tender, soft Extremities: normal inspection Edema: no edema noted Arm (L), no edema noted Arm (R), no edema noted Leg (L), no edema noted Leg (R), no edema noted Pedal (L), no edema noted Pedal (R), no edema noted Generalized Neurologic: motor weakness Skin: normal pigmentation, warm/dry Nba Hdz DO Jul 25, 2019 08:38
[2019-07-25] MEDS: Heparin 5000 units/ml inj SUBQ SCH ×2 (09:00→20:12)
[2019-07-25] MEDS: Fleet's Enema 133ml RECTAL PRN ×2 (09:15→22:34)
[2019-07-25] MEDS: Cefepime HCl 2 GM in D5W 110 ML IV SCH (09:24)
[2019-07-25 12:00] VITALS: BP 121/63
[2019-07-25 16:00] VITALS: BP 100/58
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
[2019-07-25] MEDS: Morphine Sulfate 2mg/ml Inj(IV/IM USE ONLY) IVP PRN (18:29)
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
[2019-07-25 20:00] VITALS: BP 95/58
[2019-07-25] MEDS: Cefdinir 300mg cap ORAL SCH (21:32)
[2019-07-26] VITALS (7 sets, daily range): BP systolic 79–116; BP diastolic 42–73
[2019-07-26] MEDS: Morphine Sulfate 2mg/ml Inj(IV/IM USE ONLY) IVP PRN (05:44)
[2019-07-26 07:02] LABS: BASOPHILS % (AUTO) 1.2 % (0.0-2.0); EOSINOPHILS % (AUTO) 1.4 % (0.0-3.0); HEMATOCRIT 42.8 % (42.0-52.0); HEMOGLOBIN 13.9 G/DL (14.2-18.0); LYMPHOCYTES % (AUTO) 36.1 % (20.0-45.0); MEAN CORPUSCULAR VOLUME 85 FL (80-99); MONOCYTES % (AUTO) 8.2 % (1.0-10.0); NEUTROPHILS % (AUTO) 53.1 % (45.0-75.0); PLATELET COUNT 140 K/UL (150-450); WHITE BLOOD COUNT 4.6 K/UL (4.8-10.8)
[2019-07-26 07:20] LABS: ANION GAP 10 mmol/L (5-15); BLOOD UREA NITROGEN 5 mg/dL (7-18); CARBON DIOXIDE 26 MMOL/L (21-32); CHLORIDE 104 MMOL/L (98-107); CREATININE 0.5 MG/DL (0.55-1.30); POTASSIUM 3.5 MMOL/L (3.5-5.1); SODIUM 140 MMOL/L (136-145)
[2019-07-26] MEDS: Cefdinir 300mg cap ORAL SCH (08:25)
--- NOTE | 2019-07-26 08:46 | General Progress Note ---
Assessment/Plan Problem List: (1) Proctitis ICD Codes: K62.89 - Other specified diseases of anus and rectum SNOMED: 8306961 (2) Paraplegia ICD Codes: G82.20 - Paraplegia SNOMED: 64169119 (3) UTI (lower urinary tract infection) ICD Codes: N39.0 - Urinary tract infection, site not specified SNOMED: 0056488 (4) Sepsis ICD Codes: A41.9 - Sepsis, unspecified organism SNOMED: 34797922 Status: stable, progressing Assessment/Plan: pt diet abx cbc bmp am dc plan snf Subjective Constitutional: Reports: weakness Allergies: Coded Allergies: No Known Allergies (Unverified , 05/05/13) All Systems: reviewed and negative except above Subjective sleepy calm in bed Objective Last 24 Hour Vital Signs Date Time Temp Pulse Resp B/P (MAP) Pulse Ox O2 Delivery O2 Flow Rate FiO2 07/26/19 08:00 97.9 62 18 109/70 (83) 99 07/26/19 04:00 98.4 72 20 105/73 (84) 100 07/26/19 00:00 97.0 65 20 96/52 (67) 98 07/25/19 21:00 Room Air 07/25/19 20:00 97.9 65 20 95/58 (70) 98 07/25/19 19:36 68 18 98 Room Air 21 07/25/19 16:00 97.8 60 20 100/58 (72) 100 07/25/19 12:00 97.9 76 18 121/63 (82) 99 07/25/19 09:00 Room Air Intake and Output 07/25/19 07/26/19 19:00 07:00 Intake Total 240 ml 1000 ml Output Total 1200 ml 1500 ml Balance -960 ml -500 ml Intake Oral 240 ml 1000 ml Output Urine Total 1200 ml 1500 ml # Bowel Movements 1 2 Laboratory Tests 07/25/19 15:40: Stool Occult Blood [Pending] 07/25/19 22:48: Stool Occult Blood [Pending] 07/26/19 05:45: Stool Occult Blood [Pending] 07/26/19 06:20: White Blood Count 4.6L, Red Blood Count 5.00, Hemoglobin 13.9L, Hematocrit 42.8 , Mean Corpuscular Volume 85, Mean Corpuscular Hemoglobin 27.8, Mean Corpuscular Hemoglobin Concent 32.5, Red Cell Distribution Width 12.0, Platelet Count 140L, Mean Platelet Volume 9.0, Neutrophils (%) (Auto) 53.1, Lymphocytes ( %) (Auto) 36.1, Monocytes (%) (Auto) 8.2, Eosinophils (%) (Auto) 1.4, Basophils (%) (Auto) 1.2, Sodium Level 140, Potassium Level 3.5, Chloride Level 104, Carbon Dioxide Level 26, Anion Gap 10, Blood Urea Nitrogen 5L, Creatinine 0.5L, Estimat Glomerular Filtration Rate > 60, Glucose Level 88, Calcium Level 9.0 Height (Feet): 5 Height (Inches): 10.00 Weight (Pounds): 130 General Appearance: lethargic EENT: normal ENT inspection Neck: normal alignment Cardiovascular: normal peripheral pulses, normal rate, regular rhythm Respiratory/Chest: chest wall non-tender, lungs clear, normal breath sounds Abdomen: normal bowel sounds, non tender, soft Extremities: normal inspection Edema: no edema noted Arm (L), no edema noted Arm (R), no edema noted Leg (L), no edema noted Leg (R), no edema noted Pedal (L), no edema noted Pedal (R), no edema noted Generalized Neurologic: motor weakness Skin: normal pigmentation, warm/dry Nba Hdz DO Jul 26, 2019 08:46
[2019-07-26] MEDS: Heparin 5000 units/ml inj SUBQ SCH (08:50)
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
--- NOTE | 2019-07-26 19:38 | Cardiology Progress Note ---
Assessment/Plan Assessment/Plan The patient is seen and examined, full consult note will be dictated. Objective Last 24 Hour Vital Signs Date Time Temp Pulse Resp B/P (MAP) Pulse Ox O2 Delivery O2 Flow Rate FiO2 07/26/19 18:22 98.7 85 18 110/70 (83) 99 07/26/19 15:56 98.7 80 18 79/42 (54) 99 07/26/19 11:57 98.2 68 18 108/69 (82) 99 07/26/19 09:23 97.9 07/26/19 09:00 Room Air 07/26/19 08:00 97.9 62 18 109/70 (83) 99 07/26/19 07:00 70 16 97 Room Air 21 07/26/19 04:00 98.4 72 20 105/73 (84) 100 07/26/19 00:00 97.0 65 20 96/52 (67) 98 07/25/19 21:00 Room Air 07/25/19 20:00 97.9 65 20 95/58 (70) 98 Intake and Output 07/25/19 07/26/19 18:59 06:59 Intake Total 240 ml 1000 ml Output Total 1200 ml 1500 ml Balance -960 ml -500 ml Intake Oral 240 ml 1000 ml Output Urine Total 1200 ml 1500 ml # Bowel Movements 1 2 Laboratory Tests Test 07/25/19 22:48 07/26/19 05:45 07/26/19 06:20 Stool Occult Blood Negative (NEGATIVE) Positive (NEGATIVE) White Blood Count 4.6 K/UL (4.8-10.8) L Red Blood Count 5.00 M/UL (4.70-6.10) Hemoglobin 13.9 G/DL (14.2-18.0) L Hematocrit 42.8 % (42.0-52.0) Mean Corpuscular Volume 85 FL (80-99) Mean Corpuscular Hemoglobin 27.8 PG (27.0-31.0) Mean Corpuscular Hemoglobin Concent 32.5 G/DL (32.0-36.0) Red Cell Distribution Width 12.0 % (11.6-14.8) Platelet Count 140 K/UL (150-450) L Mean Platelet Volume 9.0 FL (6.5-10.1) Neutrophils (%) (Auto) 53.1 % (45.0-75.0) Lymphocytes (%) (Auto) 36.1 % (20.0-45.0) Monocytes (%) (Auto) 8.2 % (1.0-10.0) Eosinophils (%) (Auto) 1.4 % (0.0-3.0) Basophils (%) (Auto) 1.2 % (0.0-2.0) Sodium Level 140 MMOL/L (136-145) Potassium Level 3.5 MMOL/L (3.5-5.1) Chloride Level 104 MMOL/L (98-107) Carbon Dioxide Level 26 MMOL/L (21-32) Anion Gap 10 mmol/L (5-15) Blood Urea Nitrogen 5 mg/dL (7-18) L Creatinine 0.5 MG/DL (0.55-1.30) L Estimat Glomerular Filtration Rate > 60 mL/min (>60) Glucose Level 88 MG/DL (74-106) Calcium Level 9.0 MG/DL (8.5-10.1) Microbiology Date/Time Source Procedure Growth Status 07/24/19 04:00 Indwelling Cath Urine Culture - Preliminary Pseudomonas Aeruginosa Gram Negative Bacillus 2 Resulted Rafa Mcmahon MD Jul 26, 2019 19:38
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
[2019-07-26] MEDS: Cefepime HCl 1 GM in D5W 55 ML IVPB SCH (21:40)
[2019-07-27] VITALS (7 sets, daily range): BP systolic 84–133; BP diastolic 30–79
[2019-07-27] MEDS: Cefepime HCl 1 GM in D5W 55 ML IVPB SCH ×3 (05:47→21:29)
[2019-07-27 07:14] LABS: ANION GAP 9 mmol/L (5-15); BLOOD UREA NITROGEN 5 mg/dL (7-18); CALCIUM 8.8 MG/DL (8.5-10.1); CARBON DIOXIDE 27 MMOL/L (21-32); CHLORIDE 108 MMOL/L (98-107); CREATININE 0.6 MG/DL (0.55-1.30); POTASSIUM 3.9 MMOL/L (3.5-5.1); SODIUM 144 MMOL/L (136-145)
[2019-07-27 07:19] LABS: BASOPHILS % (AUTO) 0.8 % (0.0-2.0); EOSINOPHILS % (AUTO) 1.2 % (0.0-3.0); HEMATOCRIT 44.1 % (42.0-52.0); HEMOGLOBIN 14.1 G/DL (14.2-18.0); MEAN CORPUSCULAR VOLUME 86 FL (80-99); PLATELET COUNT 138 K/UL (150-450); RED BLOOD COUNT 5.11 M/UL (4.70-6.10); RED CELL DISTRIBUTION WIDTH 12.4 % (11.6-14.8); WHITE BLOOD COUNT 5.6 K/UL (4.8-10.8)
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
--- NOTE | 2019-07-27 14:43 | General Progress Note ---
Assessment/Plan Problem List: (1) Proctitis ICD Codes: K62.89 - Other specified diseases of anus and rectum SNOMED: 2857955 (2) Paraplegia ICD Codes: G82.20 - Paraplegia SNOMED: 47285909 (3) UTI (lower urinary tract infection) ICD Codes: N39.0 - Urinary tract infection, site not specified SNOMED: 5960407 (4) Sepsis ICD Codes: A41.9 - Sepsis, unspecified organism SNOMED: 73215158 Status: stable, progressing Assessment/Plan: pt diet abx cbc bmp am dc plan w hh Subjective Constitutional: Reports: weakness Allergies: Coded Allergies: No Known Allergies (Unverified , 05/05/13) All Systems: reviewed and negative except above Subjective calm in bed Objective Last 24 Hour Vital Signs Date Time Temp Pulse Resp B/P (MAP) Pulse Ox O2 Delivery O2 Flow Rate FiO2 07/27/19 13:21 84/30 (48) 07/27/19 11:58 98.0 69 17 85/50 (62) 99 07/27/19 08:14 Room Air 07/27/19 08:09 67 16 97 Room Air 21 07/27/19 08:00 97.1 68 17 112/66 (81) 98 07/27/19 04:00 97.5 56 18 111/75 (87) 98 07/27/19 00:00 98.3 59 18 117/70 (86) 98 07/26/19 21:00 Room Air 07/26/19 20:34 74 18 98 Room Air 21 07/26/19 20:00 98.0 74 18 116/70 (85) 99 07/26/19 18:22 98.7 85 18 110/70 (83) 99 07/26/19 15:56 98.7 80 18 79/42 (54) 99 Intake and Output 07/26/19 07/27/19 19:00 07:00 Intake Total 740 ml Output Total 1800 ml Balance 740 ml -1800 ml Intake Oral 240 ml IV Total 500 ml Output Urine Total 1800 ml Laboratory Tests 07/27/19 06:05: White Blood Count 5.6, Red Blood Count 5.11, Hemoglobin 14.1L, Hematocrit 44.1, Mean Corpuscular Volume 86, Mean Corpuscular Hemoglobin 27.6, Mean Corpuscular Hemoglobin Concent 32.0, Red Cell Distribution Width 12.4, Platelet Count 138L, Mean Platelet Volume 8.8, Neutrophils (%) (Auto) 55.0, Lymphocytes (%) (Auto) 34.0, Monocytes (%) (Auto) 9.0, Eosinophils (%) (Auto) 1.2, Basophils (%) (Auto ) 0.8, Sodium Level 144, Potassium Level 3.9, Chloride Level 108H, Carbon Dioxide Level 27, Anion Gap 9, Blood Urea Nitrogen 5L, Creatinine 0.6, Estimat Glomerular Filtration Rate > 60, Glucose Level 120H, Calcium Level 8.8 Height (Feet): 5 Height (Inches): 10.00 Weight (Pounds): 130 General Appearance: lethargic EENT: normal ENT inspection Neck: normal alignment Cardiovascular: normal peripheral pulses, normal rate, regular rhythm Respiratory/Chest: chest wall non-tender, lungs clear, normal breath sounds Abdomen: normal bowel sounds, non tender, soft Extremities: normal inspection Edema: no edema noted Arm (L), no edema noted Arm (R), no edema noted Leg (L), no edema noted Leg (R), no edema noted Pedal (L), no edema noted Pedal (R), no edema noted Generalized Neurologic: responsive, motor weakness Skin: normal pigmentation, warm/dry Nba Hdz DO Jul 27, 2019 14:43
--- NOTE | 2019-07-27 16:56 | Consultation ---
DATE OF CONSULTATION: 07/26/2019 CARDIOLOGY CONSULTATION CONSULTING PHYSICIAN: Rafa Mcmahon M.D. REFERRING PHYSICIAN: Nba Hdz D.O. REASON FOR CONSULTATION: Management of hypotension. HISTORY OF PRESENT ILLNESS: The patient is a very unfortunate 43-year-old gentleman who presents to the hospital after experiencing hematuria since last . The patient was diagnosed with urinary tract infection in the emergency department and was transferred to the medical/surgical unit for further evaluation and management of this condition and treatment with IV antibiotic. Of note, during his initial encounter in the emergency department, his blood pressure was 96/50 mmHg and heart rate was 82. The patient does not have any cardiovascular risk factors, although he had history of tobacco in the past. Initial laboratory finding in the emergency department at the time of admission showed no evidence of leukocytosis with WBC count of 5.7 with normal renal function. While receiving treatment in the medical/surgical unit, the blood pressure on 07/26/2019 dropped to 79/42 mmHg. The heart rate was 80. Cardiology consultation was made at request of Dr. Hdz for evaluation and management of hypotension. Laboratory finding did not show any worsening. It did not show any presence of leukocytosis. PAST MEDICAL HISTORY: 1. Quadriplegia. 2. Peripheral neuropathy. 3. Hypertension. 4. UTI. ALLERGIES: No known drug allergies. SOCIAL HISTORY: Positive for smoking, alcohol, and marijuana. PAST SURGICAL HISTORY: None. MEDICATIONS: List of medications at home including doxepin 20 mg p.o. 4 times a day, Benadryl 25 mg once daily as needed allergies, gabapentin 600 mg 4 times a day, [place] 5/325 one tablet q.4 h. p.r.n. pain, terazosin 10 mg p.o. at bedtime, and Zanaflex 4 mg twice daily. REVIEW OF SYSTEMS: A 12-system review done essentially negative except what was mentioned in the history of present illness. PHYSICAL EXAMINATION: VITAL SIGNS: At the time of arrival to the hospital, blood pressure was 96/50, pulse of 82, respirations 16, temperature 98.1 degrees Fahrenheit, O2 saturation 98% on room air. GENERAL: The patient is a very unfortunate gentleman, who is alert and oriented x3, in no acute distress. HEENT: Atraumatic and normocephalic. Anicteric. Pupils are equal, round, and reactive to light and accommodation. Extraocular muscles intact. NECK: JVP is less than 5 cm. No carotid bruit. Carotid upstrokes 2+ bilaterally. CVS: Normal S1, S2. Regular rate and rhythm. No murmurs, gallops, or rubs. LUNGS: Clear to auscultation, although poor inspiratory effort. ABDOMEN: Soft, nontender, and nondistended. No hepatosplenomegaly. Positive bowel sounds. EXTREMITIES: No evidence of edema, clubbing, or cyanosis. NEUROLOGIC: Flaccid paralysis below the waist. LABORATORY FINDINGS: WBC is 5.7, hemoglobin of 14.4, hematocrit of 45.3, and platelet count is 102. Sodium 137, potassium is 4.0, chloride 104, bicarbonate 24, BUN 7, creatinine 0.6, glucose 111, and calcium is 9.3. ASSESSMENT AND PLAN: The patient is a very unfortunate 43-year-old gentleman, seen in Cardiology consultation. 1. Hypotension, most likely due to combination of pain medication and muscle relaxants. One has to also consider hypovolemia. I would like to encourage hydration and increase p.o. intake. We will obtain 2D echocardiography for assessment of LV systolic and diastolic function. Further therapeutic and diagnostic decision will be based on the results of this study. 2. History of hypertension in the outpatient setting. The patient was not taking any blood pressure medication. 3. History of quadriplegia. I would like to thank, Dr. Hdz, for allowing me to participate in the care of this patient. Rafa Mcmahon M.D. DR: IVETH JOB#: [id number] CC:
--- NOTE | 2019-07-27 21:52 | Cardiology Progress Note ---
Assessment/Plan Assessment/Plan 1. Hypotension, most likely due to combination of pain medication and muscle relaxants. Continue hydration. 2D echo to assess LV systolic and diastolic data. 2. History of hypertension. 3. History of quadriplegia. Objective Last 24 Hour Vital Signs Date Time Temp Pulse Resp B/P (MAP) Pulse Ox O2 Delivery O2 Flow Rate FiO2 07/27/19 19:42 69 18 97 Room Air 21 07/27/19 16:10 99.8 65 18 133/79 (97) 99 07/27/19 13:21 84/30 (48) 07/27/19 11:58 98.0 69 17 85/50 (62) 99 07/27/19 08:14 Room Air 07/27/19 08:09 67 16 97 Room Air 21 07/27/19 08:00 97.1 68 17 112/66 (81) 98 07/27/19 04:00 97.5 56 18 111/75 (87) 98 07/27/19 00:00 98.3 59 18 117/70 (86) 98 Intake and Output 07/26/19 07/27/19 19:00 07:00 Intake Total 740 ml Output Total 1800 ml Balance 740 ml -1800 ml Intake Oral 240 ml IV Total 500 ml Output Urine Total 1800 ml Laboratory Tests Test 07/27/19 06:05 White Blood Count 5.6 K/UL (4.8-10.8) Red Blood Count 5.11 M/UL (4.70-6.10) Hemoglobin 14.1 G/DL (14.2-18.0) L Hematocrit 44.1 % (42.0-52.0) Mean Corpuscular Volume 86 FL (80-99) Mean Corpuscular Hemoglobin 27.6 PG (27.0-31.0) Mean Corpuscular Hemoglobin Concent 32.0 G/DL (32.0-36.0) Red Cell Distribution Width 12.4 % (11.6-14.8) Platelet Count 138 K/UL (150-450) L Mean Platelet Volume 8.8 FL (6.5-10.1) Neutrophils (%) (Auto) 55.0 % (45.0-75.0) Lymphocytes (%) (Auto) 34.0 % (20.0-45.0) Monocytes (%) (Auto) 9.0 % (1.0-10.0) Eosinophils (%) (Auto) 1.2 % (0.0-3.0) Basophils (%) (Auto) 0.8 % (0.0-2.0) Sodium Level 144 MMOL/L (136-145) Potassium Level 3.9 MMOL/L (3.5-5.1) Chloride Level 108 MMOL/L (98-107) H Carbon Dioxide Level 27 MMOL/L (21-32) Anion Gap 9 mmol/L (5-15) Blood Urea Nitrogen 5 mg/dL (7-18) L Creatinine 0.6 MG/DL (0.55-1.30) Estimat Glomerular Filtration Rate > 60 mL/min (>60) Glucose Level 120 MG/DL (74-106) H Calcium Level 8.8 MG/DL (8.5-10.1) Objective HEENT: Atraumatic and normocephalic. Anicteric. Pupils are equal, round, and reactive to light and accommodation. Extraocular muscles intact. NECK: JVP is less than 5 cm. No carotid bruit. Carotid upstrokes 2+ bilaterally. CVS: Normal S1, S2. Regular rate and rhythm. No murmurs, gallops, or rubs. LUNGS: Clear to auscultation, although poor inspiratory effort. ABDOMEN: Soft, nontender, and nondistended. No hepatosplenomegaly. Positive bowel sounds. EXTREMITIES: No evidence of edema, clubbing, or cyanosis. NEUROLOGIC: Flaccid paralysis below the waist. Rafa Mcmahon MD Jul 27, 2019 21:52
[2019-07-27] MEDS: Morphine Sulfate 2mg/ml Inj(IV/IM USE ONLY) IVP PRN (23:16)
[2019-07-28] VITALS: BP 125/76
[2019-07-28 04:00] VITALS: BP 100/66
[2019-07-28] MEDS: Cefepime HCl 1 GM in D5W 55 ML IVPB SCH (05:45)
[2019-07-28 07:00] LABS: HEMATOCRIT 41.7 % (42.0-52.0); HEMOGLOBIN 13.4 G/DL (14.2-18.0); LYMPHOCYTES % (AUTO) 36.4 % (20.0-45.0); MEAN CORPUSCULAR VOLUME 86 FL (80-99); MONOCYTES % (AUTO) 8.8 % (1.0-10.0); NEUTROPHILS % (AUTO) 51.9 % (45.0-75.0); PLATELET COUNT 138 K/UL (150-450); RED BLOOD COUNT 4.85 M/UL (4.70-6.10); RED CELL DISTRIBUTION WIDTH 12.1 % (11.6-14.8); WHITE BLOOD COUNT 4.9 K/UL (4.8-10.8)
[2019-07-28 07:41] LABS: ANION GAP 7 mmol/L (5-15); BLOOD UREA NITROGEN 4 mg/dL (7-18); CALCIUM 8.8 MG/DL (8.5-10.1); CARBON DIOXIDE 28 MMOL/L (21-32); CHLORIDE 106 MMOL/L (98-107); CREATININE 0.5 MG/DL (0.55-1.30); SODIUM 141 MMOL/L (136-145)
[2019-07-28 08:00] VITALS: BP 103/68
--- NOTE | 2019-07-28 08:57 | General Progress Note ---
Assessment/Plan Problem List: (1) Proctitis ICD Codes: K62.89 - Other specified diseases of anus and rectum SNOMED: 2753610 (2) Paraplegia ICD Codes: G82.20 - Paraplegia SNOMED: 76834122 (3) UTI (lower urinary tract infection) ICD Codes: N39.0 - Urinary tract infection, site not specified SNOMED: 3721506 (4) Sepsis ICD Codes: A41.9 - Sepsis, unspecified organism SNOMED: 72686891 Status: stable, progressing Assessment/Plan: pt diet abx dc if clear Subjective Constitutional: Reports: weakness Allergies: Coded Allergies: No Known Allergies (Unverified , 05/05/13) All Systems: reviewed and negative except above Subjective calm in bed Objective Last 24 Hour Vital Signs Date Time Temp Pulse Resp B/P (MAP) Pulse Ox O2 Delivery O2 Flow Rate FiO2 07/28/19 08:00 97.4 68 18 103/68 (80) 98 07/28/19 07:28 80 16 96 Room Air 21 07/28/19 04:00 97.7 70 17 100/66 (77) 99 07/28/19 00:00 98.6 57 17 125/76 (92) 97 07/27/19 21:00 Room Air 07/27/19 20:00 98.4 60 18 128/74 (92) 98 07/27/19 19:42 69 18 97 Room Air 21 07/27/19 16:10 99.8 65 18 133/79 (97) 99 07/27/19 13:21 84/30 (48) 07/27/19 11:58 98.0 69 17 85/50 (62) 99 Intake and Output 07/27/19 07/28/19 19:00 07:00 Intake Total 1155 ml 480 ml Output Total 450 ml 1650 ml Balance 705 ml -1170 ml Intake Oral 600 ml 480 ml IV Total 555 ml Output Urine Total 450 ml 1650 ml # Voids 2 2 Laboratory Tests 07/28/19 06:30: White Blood Count 4.9, Red Blood Count 4.85, Hemoglobin 13.4L, Hematocrit 41.7L , Mean Corpuscular Volume 86, Mean Corpuscular Hemoglobin 27.6, Mean Corpuscular Hemoglobin Concent 32.2, Red Cell Distribution Width 12.1, Platelet Count 138L, Mean Platelet Volume 9.4, Neutrophils (%) (Auto) 51.9, Lymphocytes ( %) (Auto) 36.4, Monocytes (%) (Auto) 8.8, Eosinophils (%) (Auto) 2.0, Basophils (%) (Auto) 1.0, Sodium Level 141, Potassium Level 4.0, Chloride Level 106, Carbon Dioxide Level 28, Anion Gap 7, Blood Urea Nitrogen 4L, Creatinine 0.5L, Estimat Glomerular Filtration Rate > 60, Glucose Level 95, Calcium Level 8.8 Height (Feet): 5 Height (Inches): 10.00 Weight (Pounds): 168 General Appearance: lethargic EENT: normal ENT inspection Neck: normal alignment Cardiovascular: normal peripheral pulses, normal rate, regular rhythm Respiratory/Chest: chest wall non-tender, lungs clear, normal breath sounds Abdomen: normal bowel sounds, non tender, soft Extremities: normal inspection Edema: no edema noted Arm (L), no edema noted Arm (R), no edema noted Leg (L), no edema noted Leg (R), no edema noted Pedal (L), no edema noted Pedal (R), no edema noted Generalized Neurologic: responsive, motor weakness Skin: normal pigmentation, warm/dry Nba Hdz DO Jul 28, 2019 08:57
[2019-07-28] MEDS ORDERED: ACETAMINOPHEN325 M1 ORAL (11:05)
[2019-07-28] MEDS ORDERED: DUONEB 0.5-3(2.53 ML HHN (11:09)
[2019-07-28 12:00] VITALS: BP 95/56
[2019-07-28] MEDS: Fleet's Enema 133ml RECTAL PRN (12:03)
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
[2019-07-28] MEDS ORDERED: PHENAZOPYRIDIN100 MG ORAL (12:49)
[2019-07-28] MEDS ORDERED: CEFEPIME-D2 GM/50 ML IVPB (12:58)
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
[2019-07-28 16:00] VITALS: BP 98/62
[2019-07-28] MEDS ORDERED: Cefepime HCl 1 GM in D5W 55 ML IVPB SCH (18:00)
--- NOTE | 2019-07-28 19:53 | Cardiology Progress Note ---
Assessment/Plan Assessment/Plan 1. Hypotension, most likely due to combination of pain medication and muscle relaxants. Continue hydration. 2D echo shows normal LV systolic and diastolic function. 2. History of hypertension. 3. History of quadriplegia. Subjective Subjective Sinus rhythm at rate of 68. Objective Last 24 Hour Vital Signs Date Time Temp Pulse Resp B/P (MAP) Pulse Ox O2 Delivery O2 Flow Rate FiO2 07/28/19 16:00 97.6 68 19 98/62 (74) 98 07/28/19 12:00 98.1 63 19 95/56 (69) 98 07/28/19 09:35 97.4 07/28/19 09:00 Room Air 07/28/19 08:00 97.4 68 18 103/68 (80) 98 07/28/19 07:28 80 16 96 Room Air 21 07/28/19 04:00 97.7 70 17 100/66 (77) 99 07/28/19 00:00 98.6 57 17 125/76 (92) 97 07/27/19 21:00 Room Air 07/27/19 20:00 98.4 60 18 128/74 (92) 98 Intake and Output 07/27/19 07/28/19 19:00 07:00 Intake Total 1155 ml 480 ml Output Total 450 ml 1650 ml Balance 705 ml -1170 ml Intake Oral 600 ml 480 ml IV Total 555 ml Output Urine Total 450 ml 1650 ml # Voids 2 2 2D Echo: LVEF 60%, Grade I LVDD, RVSP 22 mmHg Laboratory Tests Test 07/28/19 06:30 White Blood Count 4.9 K/UL (4.8-10.8) Red Blood Count 4.85 M/UL (4.70-6.10) Hemoglobin 13.4 G/DL (14.2-18.0) L Hematocrit 41.7 % (42.0-52.0) L Mean Corpuscular Volume 86 FL (80-99) Mean Corpuscular Hemoglobin 27.6 PG (27.0-31.0) Mean Corpuscular Hemoglobin Concent 32.2 G/DL (32.0-36.0) Red Cell Distribution Width 12.1 % (11.6-14.8) Platelet Count 138 K/UL (150-450) L Mean Platelet Volume 9.4 FL (6.5-10.1) Neutrophils (%) (Auto) 51.9 % (45.0-75.0) Lymphocytes (%) (Auto) 36.4 % (20.0-45.0) Monocytes (%) (Auto) 8.8 % (1.0-10.0) Eosinophils (%) (Auto) 2.0 % (0.0-3.0) Basophils (%) (Auto) 1.0 % (0.0-2.0) Sodium Level 141 MMOL/L (136-145) Potassium Level 4.0 MMOL/L (3.5-5.1) Chloride Level 106 MMOL/L (98-107) Carbon Dioxide Level 28 MMOL/L (21-32) Anion Gap 7 mmol/L (5-15) Blood Urea Nitrogen 4 mg/dL (7-18) L Creatinine 0.5 MG/DL (0.55-1.30) L Estimat Glomerular Filtration Rate > 60 mL/min (>60) Glucose Level 95 MG/DL (74-106) Calcium Level 8.8 MG/DL (8.5-10.1) Objective HEENT: Atraumatic and normocephalic. Anicteric. Pupils are equal, round, and reactive to light and accommodation. Extraocular muscles intact. NECK: JVP is less than 5 cm. No carotid bruit. Carotid upstrokes 2+ bilaterally. CVS: Normal S1, S2. Regular rate and rhythm. No murmurs, gallops, or rubs. LUNGS: Clear to auscultation, although poor inspiratory effort. ABDOMEN: Soft, nontender, and nondistended. No hepatosplenomegaly. Positive bowel sounds. EXTREMITIES: No evidence of edema, clubbing, or cyanosis. NEUROLOGIC: Flaccid paralysis below the waist. Rafa Mcmahon MD Jul 28, 2019 19:53
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
--- NOTE | 2019-07-30 15:56 | Cardiology Report ---
APPROVED REPORT EXAM: Two-dimensional and M-mode echocardiogram with Doppler and color Doppler. INDICATION Left Ventricular function M-Mode DIMENSIONS IVSd1.0 (0.7-1.1cm)Left Atrium (MM)3.0 (1.6-4.0cm) LVDd4.8 (3.5-5.6cm)Aortic Root2.9 (2.0-3.7cm) PWd1.0 (0.7-1.1cm)Aortic Cusp Exc.2.1 (1.5-2.0cm) LVDs3.2 (2.5-4.0cm) PWs1.6 cm Technically difficult study due to poor apical windows. Study quality precludes accurate assessment of regional wall motion. Normal left ventricular chamber size, systolic function and wall motion. Left ventricular ejection fraction estimated to be 60 %. No evidence of left ventricular hypertrophy. No evidence of pericardial effusion. All other cardiac chamber sizes appear to be within normal limits. Normal appearing aortic, mitral, pulmonic and tricuspid valves. Mitral annulus and aortic root calcification. IVC dilated at 2.4 cm with physiologic collapse. A color flow and spectral Doppler study was performed and revealed: No aortic regurgitation. Trace mitral regurgitation. Mitral diastolic velocities suggest mild left ventricular diastolic dysfunction (Grade I). Trace tricuspid regurgitation. Tricuspid systolic velocities suggests peak right ventricular systolic pressure of 22.6 mmHg No pulmonic regurgitation.
== END 2019-07-28 18:00 | disposition home or self-care (01) | DRG 463 ==
LOC: EDBD 11:48 → EMR 13:00 → 4E 15:03 → OBSVTOIN 16:03 → EDBEDREQ 16:06 → 4E 07-24 15:18
DX: N39.0 Urinary tract infection, site not specified (principal); G82.50 Quadriplegia, unspecified; I95.9 Hypotension, unspecified; R62.7 Adult failure to thrive; K62.89 Other specified diseases of anus and rectum; N31.9 Neuromuscular dysfunction of bladder, unspecified; S14.154S Other incomplete lesion at C4 level of cervical spinal cord, sequela; L89.159 Pressure ulcer of sacral region, unspecified stage; W34.00XS Accidental discharge from unspecified firearms or gun, sequela; R31.0 Gross hematuria; F17.200 Nicotine dependence, unspecified, uncomplicated; G62.9 Polyneuropathy, unspecified; I10 Essential (primary) hypertension; B96.5 Pseudomonas (aeruginosa) (mallei) (pseudomallei) as the cause of diseases classified elsewhere; B96.89 Other specified bacterial agents as the cause of diseases classified elsewhere; M62.838 Other muscle spasm
CPT/HCPCS: 36415; 74177; 80048; 80053; 80202; 81003; 82270; 83690; 85025; 87040; 87081; 87086; 87181; 93306; 94664; 96361; 96365; 96375; 97803; 99285; J2405

== ENCOUNTER 2020-03-31 07:53 | Emergency (ER) | payer OTHER ==
[~2020-03-31] VITALS: Ht 177.8 cm; Wt 77.6 kg
[~2020-03-31 07:53] MED LIST changes: +ACETAMINOPHEN325 M1 ORAL; +BENADRYL25 MG ORAL; +CEFEPIME-D2 GM/50 ML IVPB; +DUONEB 0.5-3(2.53 ML HHN; +ONDANSETRON ODT4 MG BC; +PHENAZOPYRIDIN100 MG ORAL; +TERAZOSIN HCL10 MG ORAL; +UNOBMED
--- NOTE | 2020-03-31 07:59 | NUR ---
ED Nurse Note: Patient brought in by [id number] from home due to severe UTI, Kidney stone, and right hip pain 07/10.
[2020-03-31 08:00] VITALS: BP 97/60
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
[2020-03-31] MEDS ORDERED: Morphine Sulfate 4mg/ml Inj (IV USE ONLY) IVP ONE (08:15)
[2020-03-31 08:38] LABS: BASOPHILS % (AUTO) 0.9 % (0.0-2.0); HEMATOCRIT 44.8 % (42.0-52.0); LYMPHOCYTES % (AUTO) 21.4 % (20.0-45.0); MEAN CORPUSCULAR VOLUME 81 FL (80-99); MONOCYTES % (AUTO) 4.3 % (1.0-10.0); NEUTROPHILS % (AUTO) 72.4 % (45.0-75.0); PLATELET COUNT 151 K/UL (150-450); RED CELL DISTRIBUTION WIDTH 12.2 % (11.6-14.8); WHITE BLOOD COUNT 8.4 K/UL (4.8-10.8)
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
[2020-03-31 08:44] LABS: ANION GAP 3 mmol/L (5-15); BLOOD UREA NITROGEN 8 mg/dL (7-18); CALCIUM 9.9 MG/DL (8.5-10.1); CARBON DIOXIDE 30 MMOL/L (21-32); CHLORIDE 102 MMOL/L (98-107); CREATININE 0.7 MG/DL (0.55-1.30); POTASSIUM 3.9 MMOL/L (3.5-5.1); SODIUM 134 MMOL/L (136-145)
[2020-03-31 08:48] LABS: ALANINE AMINOTRANSFERASE 14 U/L (12-78); ALBUMIN 3.8 G/DL (3.4-5.0); ALKALINE PHOSPHATASE 84 U/L (46-116); APPEARANCE,URINE SLIGHTLY CLOUDY; ASPARTATE AMINO TRANSFERASE 15 U/L (15-37); BILIRUBIN, URINE NEGATIVE (NEGATIVE); BILIRUBIN,TOTAL 0.4 MG/DL (0.2-1.0); COLOR,URINE PALE YELLOW; GLUCOSE, URINE (UA) NEGATIVE (NEGATIVE); KETONES,URINE NEGATIVE (NEGATIVE); LEUKOCYTE ESTERASE ,URINE 3+ (NEGATIVE); NITRITE,URINE POSITIVE (NEGATIVE); PH,URINE 7 (4.5-8.0); PROTEIN,URINE NEGATIVE (NEGATIVE); UROBILINOGEN,URINE NORMAL MG/DL (0.0-1.0)
--- NOTE | 2020-03-31 09:01 | NUR ---
ED Nurse Note:pt. had pelvic CT done placed back on monitor and given IV fluids for hypotension
[2020-03-31 09:06] VITALS: BP 82/47
--- NOTE | 2020-03-31 09:45 | Diagnostic Imaging Report ---
Indication: Abdominal pain, hip pain, urinary tract infection Technique: Spiral acquisitions obtained through the abdomen and pelvis. No oral contrast utilized, per emergency room physician request No IV contrast utilized, per referring physician request.. Multiplanar reconstructions were generated. Total dose length product 287 mGycm. CTDIvol(s) for mGy. Dose reduction achieved using automated exposure control Comparison: 11/28/2019 Findings: The rectum is minimally distended with stool. There is no evidence of diverticulosis or diverticulitis. Appendix is normal. No small bowel distention. No free or loculated intraperitoneal gas or fluid is evident. The distal esophagus, stomach, duodenum are unremarkable. Lack of IV contrast limits assessment of the solid organs. The liver is unremarkable. Gallbladder contains gallstones. The pancreas, spleen, adrenals are unremarkable. Stable right renal calculi are again demonstrated. Left renal cyst demonstrated on prior contrast study are not visible on current noncontrast exam. No ureteral calculi, hydronephrosis, or hydroureter. There is mild bladder wall thickening which appears similar to the previous study. Again demonstrated is a urethral stent. Chronic deformity of the coccyx is again demonstrated. There are mild degenerative changes of the lumbar spine. Again demonstrated is a severely deformed inferior vena cava filter, components protruding well beyond the inferior vena cava. Lung bases demonstrate posterior dependent atelectatic changes. Impression: Mild bladder wall thickening, could be related to stated clinical history of suspected urinary tract infection, although similarity to prior exam suggests that this may just be baseline for this patient. Nonobstructive right nephrolithiasis, also previously reported Cholelithiasis, also previously reported. 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
[2020-03-31] MEDS ORDERED: PHENAZOPYRIDIN100 MG ORAL (10:37)
[2020-03-31] MEDS ORDERED: CIPROFLOXACIN500 M2 ORAL (10:37)
--- NOTE | 2020-03-31 10:41 | NUR ---
ED Nurse Note:pt. received second dose pain med. ,his family was notified about discharge
[2020-03-31] MEDS ORDERED: Morphine Sulfate 2mg/ml Inj(IV/IM USE ONLY) IVP ONE (10:45)
[2020-03-31 11:34] VITALS: BP 88/49
--- NOTE | 2020-03-31 11:35 | NUR ---
ED Nurse Note:given second bolus NS for non symptomatic hypotension
[2020-03-31 12:15] VITALS: BP 92/50
[2020-03-31 12:25] VITALS: BP 92/50
--- NOTE | 2020-03-31 12:25 | NUR ---
ER DISCHARGE NOTE: Patient is cleared to be discharged per ERMD, pt is aox4, on room air, with stable vital signs. pt was given dc and prescription instructions, pt was able to verbalize understanding, pt id band and iv site removed without complications. pt was taken home by ambulance, pt took all belongings.
== END 2020-03-31 12:25 | disposition home or self-care (01) ==
LOC: EDBD 07:53 → EMR 08:26
DX: N39.0 Urinary tract infection, site not specified (principal); R31.9 Hematuria, unspecified; G82.50 Quadriplegia, unspecified; I10 Essential (primary) hypertension; G62.9 Polyneuropathy, unspecified; M43.8X8 Other specified deforming dorsopathies, sacral and sacrococcygeal region; N20.0 Calculus of kidney; K80.20 Calculus of gallbladder without cholecystitis without obstruction
CPT/HCPCS: 36415; 74176; 80053; 81003; 83690; 85025; 87086; 96361; 96365; 96375; J0744; J2270; J2405; J7030; Z7502; 99284

== ENCOUNTER 2020-04-10 08:30 | Inpatient (IN) | payer OTHER ==
[~2020-04-10] VITALS: Ht 177.8 cm; Wt 79.8 kg
[2020-04-10 08:30] VITALS: BP 99/54
--- NOTE | 2020-04-10 08:30 | NUR ---
ED Nurse Note: Patient STEVIE ARENAS from home c/o blood in the stool x couple of days. Pt also reports pain on the right hip and mild abdominal pain, stated that he vomitted x1 today. Afebrile. Not in any distress. Pt is not taking any blood thinners. AAOx4, verbally responsive. Pt is quadraplegic. 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 ERMD at bedside. Addendum: 04/10/20 at 0908 by RICKY ED Nurse Note: Pt came in with condom catheter, patent and draining well.
--- NOTE | 2020-04-10 08:35 | NUR ---
ED Nurse Note: IV line established. Blood and urine specimen collected and sent to lab.
[2020-04-10 09:05] LABS: BASOPHILS % (AUTO) 0.5 % (0.0-2.0); EOSINOPHILS % (AUTO) 0.5 % (0.0-3.0); HEMATOCRIT 46.1 % (42.0-52.0); HEMOGLOBIN 15.3 G/DL (14.2-18.0); LYMPHOCYTES % (AUTO) 19.6 % (20.0-45.0); MEAN CORPUSCULAR VOLUME 81 FL (80-99); MONOCYTES % (AUTO) 3.5 % (1.0-10.0); NEUTROPHILS % (AUTO) 75.8 % (45.0-75.0); PLATELET COUNT 161 K/UL (150-450); RED BLOOD COUNT 5.67 M/UL (4.70-6.10); RED CELL DISTRIBUTION WIDTH 11.9 % (11.6-14.8); WHITE BLOOD COUNT 8.6 K/UL (4.8-10.8)
[2020-04-10 09:11] LABS: APPEARANCE,URINE CLEAR; BILIRUBIN, URINE NEGATIVE (NEGATIVE); COLOR,URINE PALE YELLOW; GLUCOSE, URINE (UA) NEGATIVE (NEGATIVE); KETONES,URINE 1+ (NEGATIVE); LEUKOCYTE ESTERASE ,URINE 2+ (NEGATIVE); NITRITE,URINE POSITIVE (NEGATIVE); PH,URINE 6.5 (4.5-8.0); PROTEIN,URINE NEGATIVE (NEGATIVE); UROBILINOGEN,URINE 1 MG/DL (0.0-1.0)
[2020-04-10 09:28] LABS: ANION GAP 9 mmol/L (5-15); BLOOD UREA NITROGEN 11 mg/dL (7-18); CALCIUM 9.1 MG/DL (8.5-10.1); CARBON DIOXIDE 27 MMOL/L (21-32); CHLORIDE 103 MMOL/L (98-107); CREATININE 0.7 MG/DL (0.55-1.30); POTASSIUM 4.1 MMOL/L (3.5-5.1); SODIUM 139 MMOL/L (136-145)
[2020-04-10 09:30] LABS: ALANINE AMINOTRANSFERASE 14 U/L (12-78); ALKALINE PHOSPHATASE 71 U/L (46-116); ASPARTATE AMINO TRANSFERASE 18 U/L (15-37); BILIRUBIN,TOTAL 0.6 MG/DL (0.2-1.0)
[2020-04-10] MEDS ORDERED: Morphine Sulfate 2mg/ml Inj(IV/IM USE ONLY) IVP ONE (09:30)
[2020-04-10] MEDS ORDERED: Pantoprazole Inj IVP ONE (09:30)
--- NOTE | 2020-04-10 10:57 | Emergency Room Report ---
History of Present Illness General Chief Complaint: Gastrointestinal Bleed Source: Patient Present Illness HPI 44-year-old male presents for rectal bleeding. Started a few days ago. States he has had this previously. Used to take Coumadin in the past but not taking at this time. Also complaining of some lower back and hip pain which is chronic. Dull, 7 out of 10, nonradiating. Also recently seen here for UTI and prescribed antibiotics which she completed. Still having symptoms. Denies fevers or chills. Notes nausea, denies vomiting. Patient is quadriplegic. No other aggravating relieving factors. Denies any other associated symptoms Allergies: Coded Allergies: No Known Allergies (Unverified , 05/05/13) COVID-19 Screening Contact w/high risk pt: No Recent Travel to affected area: No Experienced COVID-19 symptoms?: No Patient History Past Medical History: HTN, other - quadriplegic Past Surgical History: none Pertinent Family History: none Social History: Denies: smoking, alcohol use, drug use Immunizations: UTD Reviewed Nursing Documentation: PMH: Agreed; PSxH: Agreed Nursing Documentation-PMH Hx Hypertension: Yes Hx Pacemaker: No Hx Asthma: No Hx COPD: No Hx Diabetes: No Hx Cancer: No Hx Gastrointestinal Problems: No Hx Seizures: No Hx Paralysis: Yes Hx Peripheral Neuropathy: Yes Hx Spinal Cord Injury: Yes Hx Dizziness: Yes Hx Headaches: Yes Hx Numbness: Yes Hx Weakness: Yes Review of Systems All Other Systems: negative except mentioned in HPI Physical Exam Vital Signs Date Time Temp Pulse Resp B/P (MAP) Pulse Ox O2 Delivery O2 Flow Rate FiO2 04/10/20 08:25 98.4 75 20 99/54 (69) 99 Room Air Sp02 EP Interpretation: reviewed, normal General Appearance: no apparent distress, alert, GCS 15, non-toxic Head: normocephalic, atraumatic Eyes: bilateral eye normal inspection, bilateral eye PERRL ENT: hearing grossly normal, normal pharynx, no angioedema, normal voice Neck: full range of motion, supple/symm/no masses Respiratory: chest non-tender, lungs clear, normal breath sounds, speaking full sentences Cardiovascular #1: regular rate, rhythm, no edema Cardiovascular #2: 2+ carotid (R), 2+ carotid (L), 2+ radial (R), 2+ radial (L) , 2+ dorsalis pedis (R), 2+ dorsalis pedis (L) Gastrointestinal: normal bowel sounds, non tender, soft, non-distended, no guarding, no rebound Rectal: deferred Genitourinary: normal inspection, no CVA tenderness Musculoskeletal: back normal, non-tender, other - contracted upper extremities Neurologic: alert, motor strength/tone normal, oriented x3, sensory intact, responsive, speech normal Psychiatric: judgement/insight normal, memory normal, mood/affect normal, no suicidal/homicidal ideation Reflexes: 3+ bicep (R), 3+ bicep (L), 3+ tricep (R), 3+ tricep (L), 3+ knee (R) , 3+ knee (L) Skin: other - see nursing skin notes Lymphatic: no adenopathy Medical Decision Making Diagnostic Impression: Primary Impression: GIB (gastrointestinal bleeding) Qualified Codes: K92.2 - Gastrointestinal hemorrhage, unspecified Additional Impressions: UTI (lower urinary tract infection) Quadriplegia ER Course Hospital Course 44-year-old M presents to ED with rectal bleeding. quadriplegic. Differential diagnoses include: UGIB, LGIB, hemorrhoids Clinical course Patient placed on stretcher. monitoring tech. After initial history and physical I ordered labs, IV fluids, UA Labs - no leukocytosis, Hb/Hct stable. electrolytes ok, UA + bacteria Systolic BP between the 80s and 90s. This is baseline for the patient. Given antibiotics. Given IV fluids. Case discussed with Dr. Russell and he agreed to accept the patient to his service for further care and support I feel this is a highly complex case requiring extensive working including EKG/ Rhythm strip, Xray/CT/US, Blood/urine lab work, repeat exams while in ED, and administration of strong opiates/narcotics for pain control, admission to hospital or close patient follow up. Diagnosis - LGIB, UTI, quadriplegia Patient admitted to floor in serious condition Labs Test 04/10/20 08:35 White Blood Count 8.6 K/UL (4.8-10.8) Red Blood Count 5.67 M/UL (4.70-6.10) Hemoglobin 15.3 G/DL (14.2-18.0) Hematocrit 46.1 % (42.0-52.0) Mean Corpuscular Volume 81 FL (80-99) Mean Corpuscular Hemoglobin 27.0 PG (27.0-31.0) Mean Corpuscular Hemoglobin Concent 33.2 G/DL (32.0-36.0) Red Cell Distribution Width 11.9 % (11.6-14.8) Platelet Count 161 K/UL (150-450) Mean Platelet Volume 8.3 FL (6.5-10.1) Neutrophils (%) (Auto) 75.8 % (45.0-75.0) Lymphocytes (%) (Auto) 19.6 % (20.0-45.0) Monocytes (%) (Auto) 3.5 % (1.0-10.0) Eosinophils (%) (Auto) 0.5 % (0.0-3.0) Basophils (%) (Auto) 0.5 % (0.0-2.0) Prothrombin Time 10.7 SEC (9.30-11.50) Prothromb Time International Ratio 1.0 (0.9-1.1) Activated Partial Thromboplast Time 30 SEC (23-33) Urine Color Pale yellow Urine Appearance Clear Urine pH 6.5 (4.5-8.0) Urine Specific [place] 1.010 (1.005-1.035) Urine Protein Negative (NEGATIVE) Urine Glucose (UA) Negative (NEGATIVE) Urine Ketones 1+ (NEGATIVE) Urine Blood Negative (NEGATIVE) Urine Nitrite Positive (NEGATIVE) Urine Bilirubin Negative (NEGATIVE) Urine Urobilinogen 1 MG/DL (0.0-1.0) Urine Leukocyte Esterase 2+ (NEGATIVE) Urine RBC 0-2 /HPF (0 - 0) Urine WBC 2-4 /HPF (0 - 0) Urine Squamous Epithelial Cells Occasional /LPF Urine Bacteria Few /HPF (NONE) Urine Yeast Few /HPF (NONE) Sodium Level 139 MMOL/L (136-145) Potassium Level 4.1 MMOL/L (3.5-5.1) Chloride Level 103 MMOL/L (98-107) Carbon Dioxide Level 27 MMOL/L (21-32) Anion Gap 9 mmol/L (5-15) Blood Urea Nitrogen 11 mg/dL (7-18) Creatinine 0.7 MG/DL (0.55-1.30) Estimat Glomerular Filtration Rate > 60 mL/min (>60) Glucose Level 125 MG/DL (74-106) Calcium Level 9.1 MG/DL (8.5-10.1) Total Bilirubin 0.6 MG/DL (0.2-1.0) Aspartate Amino Transf (AST/SGOT) 18 U/L (15-37) Alanine Aminotransferase (ALT/SGPT) 14 U/L (12-78) Alkaline Phosphatase 71 U/L (46-116) Total Protein 8.2 G/DL (6.4-8.2) Albumin 4.0 G/DL (3.4-5.0) Globulin 4.2 g/dL Albumin/Globulin Ratio 1.0 (1.0-2.7) Lipase 137 U/L (73-393) Last Vital Signs Date Time Temp Pulse Resp B/P (MAP) Pulse Ox O2 Delivery O2 Flow Rate FiO2 04/10/20 10:00 98.4 04/10/20 08:30 75 20 99/54 99 Room Air Status: improved Disposition: ADMITTED INPATIENT Condition: Serious Referrals: OTHER,REFERRING (PCP) Melvin Denise MD April 10, 2020 10:57
[2020-04-10 11:00] VITALS: BP 101/53
--- NOTE | 2020-04-10 11:21 | NUR ---
ED Nurse Note: US at bedside.
--- NOTE | 2020-04-10 11:51 | NUR ---
ED Nurse Note: Dr. Holland at bedside.
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
--- NOTE | 2020-04-10 12:42 | Infectious Diseases Prog Note ---
Assessment/Plan Assessment/Plan Full consult dictated: A) uti gib allergies - nkda pmh noted P) 1) ceftriaxone 2) check urine culture 3) thank you Subjective Allergies: Coded Allergies: No Known Allergies (Unverified , 05/05/13) Objective Vital Signs Last 24 Hour Vital Signs Date Time Temp Pulse Resp B/P (MAP) Pulse Ox O2 Delivery O2 Flow Rate FiO2 04/10/20 10:00 98.4 04/10/20 08:30 98.4 75 20 99/54 99 Room Air 04/10/20 08:30 75 20 Room Air 04/10/20 08:25 98.4 75 20 99/54 (69) 99 Room Air Height (Feet): 5 Height (Inches): 10.00 Weight (Pounds): 180 Laboratory Tests Test 04/10/20 08:35 White Blood Count 8.6 K/UL (4.8-10.8) Red Blood Count 5.67 M/UL (4.70-6.10) Hemoglobin 15.3 G/DL (14.2-18.0) Hematocrit 46.1 % (42.0-52.0) Mean Corpuscular Volume 81 FL (80-99) Mean Corpuscular Hemoglobin 27.0 PG (27.0-31.0) Mean Corpuscular Hemoglobin Concent 33.2 G/DL (32.0-36.0) Red Cell Distribution Width 11.9 % (11.6-14.8) Platelet Count 161 K/UL (150-450) Mean Platelet Volume 8.3 FL (6.5-10.1) Neutrophils (%) (Auto) 75.8 % (45.0-75.0) H Lymphocytes (%) (Auto) 19.6 % (20.0-45.0) L Monocytes (%) (Auto) 3.5 % (1.0-10.0) Eosinophils (%) (Auto) 0.5 % (0.0-3.0) Basophils (%) (Auto) 0.5 % (0.0-2.0) Prothrombin Time 10.7 SEC (9.30-11.50) Prothromb Time International Ratio 1.0 (0.9-1.1) Activated Partial Thromboplast Time 30 SEC (23-33) Urine Color Pale yellow Urine Appearance Clear Urine pH 6.5 (4.5-8.0) Urine Specific [place] 1.010 (1.005-1.035) Urine Protein Negative (NEGATIVE) Urine Glucose (UA) Negative (NEGATIVE) Urine Ketones 1+ (NEGATIVE) H Urine Blood Negative (NEGATIVE) Urine Nitrite Positive (NEGATIVE) H Urine Bilirubin Negative (NEGATIVE) Urine Urobilinogen 1 MG/DL (0.0-1.0) H Urine Leukocyte Esterase 2+ (NEGATIVE) H Urine RBC 0-2 /HPF (0 - 0) H Urine WBC 2-4 /HPF (0 - 0) Urine Squamous Epithelial Cells Occasional /LPF Urine Bacteria Few /HPF (NONE) Urine Yeast Few /HPF (NONE) H Sodium Level 139 MMOL/L (136-145) Potassium Level 4.1 MMOL/L (3.5-5.1) Chloride Level 103 MMOL/L (98-107) Carbon Dioxide Level 27 MMOL/L (21-32) Anion Gap 9 mmol/L (5-15) Blood Urea Nitrogen 11 mg/dL (7-18) Creatinine 0.7 MG/DL (0.55-1.30) Estimat Glomerular Filtration Rate > 60 mL/min (>60) Glucose Level 125 MG/DL (74-106) H Calcium Level 9.1 MG/DL (8.5-10.1) Total Bilirubin 0.6 MG/DL (0.2-1.0) Aspartate Amino Transf (AST/SGOT) 18 U/L (15-37) Alanine Aminotransferase (ALT/SGPT) 14 U/L (12-78) Alkaline Phosphatase 71 U/L (46-116) Total Protein 8.2 G/DL (6.4-8.2) Albumin 4.0 G/DL (3.4-5.0) Globulin 4.2 g/dL Albumin/Globulin Ratio 1.0 (1.0-2.7) Lipase 137 U/L (73-393) Current Medications Medications (Trade) Dose Ordered Sig/Lindsey Route PRN Reason Start Time Stop Time Status Last Admin Dose Admin Acetaminophen (Tylenol) 650 mg Q4H PRN ORAL Mild Pain (Pain Scale 1-3) 04/10/20 10:45 05/10/20 10:44 Acetaminophen (Tylenol) 650 mg Q4H PRN ORAL Temp >100.5 04/10/20 10:45 05/10/20 10:44 Dextrose (Dextrose 50%) 25 ml Q30M PRN IV Hypoglycemia 04/10/20 10:45 07/09/20 10:44 Dextrose (Dextrose 50%) 50 ml Q30M PRN IV Hypoglycemia 04/10/20 10:45 07/09/20 10:44 Hydrocortisone (Anusol HC) 25 mg TWICE A DAY RECTAL 04/10/20 18:00 07/09/20 17:59 UNV Sodium Chloride 1,000 ml @ 200 mls/hr Q5H IV 04/10/20 09:45 05/10/20 09:44 04/10/20 09:54 Thomas Weber MD April 10, 2020 12:42
--- NOTE | 2020-04-10 12:45 | NUR ---
ED Nurse Note: Lunch tray was provided.
[2020-04-10] MEDS: cefTRIAXone 1 GM in D5W 50 ML IVPB SCH (12:50)
--- NOTE | 2020-04-10 12:54 | NUR ---
ED Nurse Note: Pt c/o 02/07 right hip pain. Tylenol 650mg Q4 PRN given as ordered.
[2020-04-10 13:00] VITALS: BP 102/56
--- NOTE | 2020-04-10 14:09 | Diagnostic Imaging Report ---
Indication: Pain and edema of the right leg Technique: Grayscale and duplex images of the right lower extremity veins Comparison: 01/12/2017 Findings: Bilaterally, grayscale and duplex images demonstrate no evidence of intraluminal thrombus. Normal phasic Doppler waveforms, demonstrating normal augmentation response and no evidence of valvular insufficiency. Greater saphenous vein(s) and tibial veins are patent. Normal compressibility. Impression: Negative for evidence of lower extremity deep venous thrombosis on the right
--- NOTE | 2020-04-10 14:30 | NUR ---
ED Nurse Note: Dinner tray provided.
[2020-04-10 15:00] VITALS: BP 99/65
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
--- NOTE | 2020-04-10 17:55 | NUR ---
ED Nurse Note: Pt refused medication- Hydrocortisone 25mg supp. Per pt, he is going to take it tomorrow instead. Explained risk and benefits, verbally understood.
[2020-04-10] MEDS ORDERED: Hydrocortisone 25mg supp RECTAL SCH (18:00)
--- NOTE | 2020-04-10 19:12 | NUR ---
HAND-OFF: Report given to Domitila VINCENT. Endorsed plan of care.
--- NOTE | 2020-04-10 19:30 | NUR ---
ED Nurse Note: received patient from mello brambila. Patient resting in bed with no acute distress. AO4. Attached to monitor; vitals stable to baseline. Per endorsement, patient baseline sbp's 90s -100's. Pt quadraplegic; verbally makes needs known. Discussed plan of care; aware of pending admission. Will continue to monitor.
[2020-04-10 20:00] VITALS: BP 111/56
--- NOTE | 2020-04-10 22:09 | NUR ---
ED Nurse Note: report given to mello elmore. Patient to be admitted to med surg [id number] under rica jara.
--- NOTE | 2020-04-10 22:29 | NUR ---
ED Nurse Note: Repeat cbc drawn; sent down to lab.
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
[2020-04-10 22:46] LABS: BASOPHILS % (AUTO) 0.9 % (0.0-2.0); EOSINOPHILS % (AUTO) 0.3 % (0.0-3.0); HEMATOCRIT 40.8 % (42.0-52.0); HEMOGLOBIN 12.7 G/DL (14.2-18.0); LYMPHOCYTES % (AUTO) 22.4 % (20.0-45.0); MEAN CORPUSCULAR VOLUME 86 FL (80-99); MONOCYTES % (AUTO) 6.6 % (1.0-10.0); NEUTROPHILS % (AUTO) 69.8 % (45.0-75.0); PLATELET COUNT 141 K/UL (150-450); RED BLOOD COUNT 4.73 M/UL (4.70-6.10); RED CELL DISTRIBUTION WIDTH 13.9 % (11.6-14.8); WHITE BLOOD COUNT 7.8 K/UL (4.8-10.8)
--- NOTE | 2020-04-10 23:13 | NUR ---
NURSE NOTES: Received patient from ER via [facility]. Healed sacral wound noted, picture taken. Bilateral heel photos taken as well. Optifoam placed on sacral area and bilateral heels. VSS. No s/s of acute distress. Able to make needs known, all needs, requests, and questions attended to. Bed low and locked.
[2020-04-11] VITALS: BP 96/51
[2020-04-11 04:00] VITALS: BP 102/54
--- NOTE | 2020-04-11 07:20 | NUR ---
HAND-OFF: Report given to MELISA Cedeño.
--- NOTE | 2020-04-11 07:30 | NUR ---
NURSE NOTES: Received patient in bed. Awake, A/O x4. On room air. Patient denies pain at this time. Condom catheter in place. Bed low and locked, Call light within reach.
[2020-04-11 08:00] VITALS: BP 102/66
[2020-04-11] MEDS ORDERED: Fleet's Mineral Oil Enema RECTAL SCH (08:00)
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
[2020-04-11 08:30] LABS: HEMATOCRIT 39.9 % (42.0-52.0); HEMOGLOBIN 13.2 G/DL (14.2-18.0); LYMPHOCYTES % (AUTO) 26.4 % (20.0-45.0); MEAN CORPUSCULAR VOLUME 82 FL (80-99); NEUTROPHILS % (AUTO) 63.7 % (45.0-75.0); PLATELET COUNT 143 K/UL (150-450); RED BLOOD COUNT 4.88 M/UL (4.70-6.10); RED CELL DISTRIBUTION WIDTH 12.1 % (11.6-14.8)
[2020-04-11 09:00] LABS: ALANINE AMINOTRANSFERASE 15 U/L (12-78); ALBUMIN 3.4 G/DL (3.4-5.0); ALBUMIN/GLOBULIN RATIO 1.1 (1.0-2.7); ALKALINE PHOSPHATASE 59 U/L (46-116); ANION GAP 10 mmol/L (5-15); ASPARTATE AMINO TRANSFERASE 14 U/L (15-37); BILIRUBIN,TOTAL 0.8 MG/DL (0.2-1.0); BLOOD UREA NITROGEN 5 mg/dL (7-18); CALCIUM 8.6 MG/DL (8.5-10.1); CARBON DIOXIDE 25 MMOL/L (21-32); CHLORIDE 107 MMOL/L (98-107); CREATININE 0.4 MG/DL (0.55-1.30); SODIUM 142 MMOL/L (136-145)
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
[2020-04-11] MEDS ORDERED: Fleet's Enema 133ml RECTAL PRN (10:30)
[2020-04-11] MEDS ORDERED: Milk of Magnesia 30ml Ud ORAL PRN (10:30)
[2020-04-11] MEDS ORDERED: Miralax 17gm pkt ORAL PRN (10:30)
[2020-04-11] MEDS: Docusate Sod/Senna tab ORAL SCH ×2 (10:32→17:15)
--- NOTE | 2020-04-11 10:41 | NUR ---
*-* INSURANCE *-* ALL AVAILABLE CLINICALS HAVE BEEN FAXED TO: [employer]#[id number] NCM:HERNANDO #[phone] FAX# [phone] REVIEWS/CLINICALS
[2020-04-11 12:00] VITALS: BP 110/67
[2020-04-11] MEDS: cefTRIAXone 1 GM in D5W 50 ML IVPB SCH (13:54)
[2020-04-11] MEDS: HYDROcodone/Acetamin 5/325 tab ORAL PRN ×2 (13:59→20:27)
--- NOTE | 2020-04-11 14:30 | NUR ---
PT NOTES M.D. order received for PT evaluation and treatment. Patient evaluated and is already at baseline functional level. Patient is a quadriplegic and requires total care for all ADL's. Patient was totally dependent with bed mobility and used a [employer] lift at home for transfers to his motorized wheelchair. Patient had a nurse and assist from his mother with his care. Patient is not a candidate for skilled PT at this time. Patient endorsed to nursing for total care.
--- NOTE | 2020-04-11 15:08 | NUR ---
CASE MANAGEMENT:REVIEW 44 YR OLD MALE BIBA FROM HOME CC: BLOOD IN STOOL AND RT HIP PAIN SI: LGIB. UTI. QUADRIPLEGIA 98.4 75 20 99/54 99% ON RA H/H=15.3/46.1 GLUCOSE+125 IS:1L NS BOLUS X2 IV LEVAQUIN IV PROTONIX IV MORPHINE URINE CX TYPE&SCREEN : TO MED/SURG UNIT DCP: RETURN HOME PLAN: GI CONSULT
[2020-04-11 16:00] VITALS: BP 116/72
--- NOTE | 2020-04-11 18:17 | NUR ---
LINING STUFFER Bedside Swallow Eval Orders received and acknowledged for LINING STUFFER bedside Swallow Evaluation from Dr. Holland. Formal Report to follow. Initial Impressions: Appears to have a grossly functional swallow with thin liquids via straw and regular solids. No overt s/s of aspiration, rotary mastication is intact, no oral residuals, vocal quality remained clear, laryngeal elevation is good. PATIENT IS A RISK FOR ASPIRATION DUE TO UTI, BEDBOUND, AND REQUIRING 1:1 FEEDING. RECOMMENDATIONS: 1. CONTINUE REGULAR SOLIDS W/ THIN LIQUIDS AND 1:1 FEEDING 2. PLEASE ASSIST PT W/ ORAL HYGIENE BID. 3. ST TO F/U FOR DIET TOLERANCE 1-2X WHILE PT IS IN MANAGER TREASURY AWARE OF POSTED ASPIRATION PRECAUTIONS AND LINING STUFFER RECS.
--- NOTE | 2020-04-11 18:22 | Infectious Diseases Prog Note ---
Assessment/Plan Assessment/Plan A) gram neg uti covid-19 testing pcr testing negative gib allergies - nkda pmh noted P) 1) ceftriaxone 2) check final urine culture 3) will f/u Subjective Constitutional: Denies: fever HEENT: Denies: congestion Respiratory: Denies: shortness of breath Gastrointestinal/Abdominal: Denies: nausea, vomiting, diarrhea Allergies: Coded Allergies: No Known Allergies (Unverified , 05/05/13) Objective Vital Signs Last 24 Hour Vital Signs Date Time Temp Pulse Resp B/P (MAP) Pulse Ox O2 Delivery O2 Flow Rate FiO2 04/11/20 16:00 97.9 71 18 116/72 (87) 97 04/11/20 12:00 97.5 69 17 110/67 (81) 98 04/11/20 09:00 Room Air 04/11/20 08:00 98.6 63 18 102/66 (78) 98 04/11/20 04:00 98.0 60 18 102/54 (70) 100 04/11/20 00:00 98.2 55 18 96/51 (66) 100 04/10/20 23:26 Room Air 04/10/20 22:35 98.4 59 15 111/56 96 Room Air 04/10/20 20:00 98.4 59 15 111/56 96 Room Air 04/10/20 18:58 98.4 Height (Feet): 5 Height (Inches): 10.00 Weight (Pounds): 180 General Appearance: no acute distress HEENT: atraumatic, anicteric, PERRL Respiratory/Chest: lungs clear, normal breath sounds Cardiovascular: normal rate, regular rhythm, no gallop/murmur Abdomen: normal bowel sounds, soft, non tender, no organomegaly Genitourinary: other - + otero Microbiology Date/Time Source Procedure Growth Status 04/10/20 08:35 Urine,Clean Catch Urine Culture - Preliminary Gram Negative Bacillus 1 Resulted Laboratory Tests Test 04/10/20 22:24 04/11/20 08:10 White Blood Count 7.8 K/UL (4.8-10.8) 6.0 K/UL (4.8-10.8) Red Blood Count 4.73 M/UL (4.70-6.10) 4.88 M/UL (4.70-6.10) Hemoglobin 12.7 G/DL (14.2-18.0) L 13.2 G/DL (14.2-18.0) L Hematocrit 40.8 % (42.0-52.0) L 39.9 % (42.0-52.0) L Mean Corpuscular Volume 86 FL (80-99) 82 FL (80-99) Mean Corpuscular Hemoglobin 26.9 PG (27.0-31.0) L 27.1 PG (27.0-31.0) Mean Corpuscular Hemoglobin Concent 31.2 G/DL (32.0-36.0) L 33.2 G/DL (32.0-36.0) Red Cell Distribution Width 13.9 % (11.6-14.8) 12.1 % (11.6-14.8) Platelet Count 141 K/UL (150-450) L 143 K/UL (150-450) L Mean Platelet Volume 10.5 FL (6.5-10.1) H 8.7 FL (6.5-10.1) Neutrophils (%) (Auto) 69.8 % (45.0-75.0) 63.7 % (45.0-75.0) Lymphocytes (%) (Auto) 22.4 % (20.0-45.0) 26.4 % (20.0-45.0) Monocytes (%) (Auto) 6.6 % (1.0-10.0) 8.0 % (1.0-10.0) Eosinophils (%) (Auto) 0.3 % (0.0-3.0) 1.0 % (0.0-3.0) Basophils (%) (Auto) 0.9 % (0.0-2.0) 1.0 % (0.0-2.0) Sodium Level 142 MMOL/L (136-145) Potassium Level 4.0 MMOL/L (3.5-5.1) Chloride Level 107 MMOL/L (98-107) Carbon Dioxide Level 25 MMOL/L (21-32) Anion Gap 10 mmol/L (5-15) Blood Urea Nitrogen 5 mg/dL (7-18) L Creatinine 0.4 MG/DL (0.55-1.30) L Estimat Glomerular Filtration Rate > 60 mL/min (>60) Glucose Level 85 MG/DL (74-106) Calcium Level 8.6 MG/DL (8.5-10.1) Total Bilirubin 0.8 MG/DL (0.2-1.0) Aspartate Amino Transf (AST/SGOT) 14 U/L (15-37) L Alanine Aminotransferase (ALT/SGPT) 15 U/L (12-78) Alkaline Phosphatase 59 U/L (46-116) Total Protein 6.5 G/DL (6.4-8.2) Albumin 3.4 G/DL (3.4-5.0) Globulin 3.1 g/dL Albumin/Globulin Ratio 1.1 (1.0-2.7) Current Medications Medications (Trade) Dose Ordered Sig/Lindsey Route PRN Reason Start Time Stop Time Status Last Admin Dose Admin Acetaminophen (Tylenol) 650 mg Q4H PRN ORAL Mild Pain (Pain Scale 1-3) 04/10/20 10:45 05/10/20 10:44 04/10/20 17:05 Acetaminophen (Tylenol) 650 mg Q4H PRN ORAL Temp >100.5 04/10/20 10:45 05/10/20 10:44 Acetaminophen/ Hydrocodone Bitart (Hoffman 5/325) 1 tab Q6H PRN ORAL Severe Pain (Pain Scale 7-10) 04/11/20 10:30 04/18/20 10:29 04/11/20 13:59 Baclofen (Lioresal) 20 mg QID ORAL 04/10/20 18:00 05/10/20 17:59 04/11/20 17:15 Ceftriaxone Sodium 1 gm/ Dextrose 50 ml @ 100 mls/hr Q24H IVPB 04/10/20 13:00 04/17/20 12:59 04/11/20 13:54 Dextrose (Dextrose 50%) 25 ml Q30M PRN IV Hypoglycemia 04/10/20 10:45 07/09/20 10:44 Dextrose (Dextrose 50%) 50 ml Q30M PRN IV Hypoglycemia 04/10/20 10:45 07/09/20 10:44 Gabapentin (Neurontin) 600 mg QID ORAL 04/10/20 18:00 05/10/20 17:59 04/11/20 17:15 Magnesium Hydroxide (Mom) 30 ml DAILYPRN PRN ORAL Constipation 04/11/20 10:30 05/11/20 10:29 Ondansetron HCl (Zofran ODT) 4 mg Q6H PRN ORAL Nausea & Vomiting 04/11/20 10:30 05/11/20 10:29 Pantoprazole (Protonix) 40 mg DAILY ORAL 04/11/20 09:00 05/11/20 08:59 04/11/20 08:19 Polyethylene Glycol (Miralax) 17 gm DAILY PRN ORAL Constipation 04/11/20 10:30 05/11/20 10:29 Senna/Docusate Sodium (Gia-Colace) 1 tab TWICE A DAY ORAL 04/11/20 10:30 05/11/20 10:29 04/11/20 17:15 Sodium Phosphate (Fleet's Sodium Phosl Enema) 133 ml DAILY PRN RECTAL Constipation 3rd choice 04/11/20 10:30 05/11/20 10:29 Terazosin HCl (Hytrin) 10 mg QHS GT 04/10/20 21:00 05/10/20 20:59 04/10/20 21:54 Tizanidine HCl (Zanaflex) 4 mg BID ORAL 04/10/20 18:00 07/09/20 17:59 04/11/20 17:15 Thomas Weber MD April 11, 2020 18:22
--- NOTE | 2020-04-11 19:14 | NUR ---
NURSE NOTES: Received patient awake in bed, AOx4, able to make needs known, no s/s of acute distress. Condom catheter in place, arrived to unit with it from home. IV access patent, flushed with normal saline. Bed low and locked. Needs attended to at this time.
--- NOTE | 2020-04-11 19:34 | NUR ---
HAND-OFF: Report given to David VINCENT.
[2020-04-11 20:00] VITALS: BP 121/74
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
[2020-04-12] VITALS (10 sets, daily range): BP systolic 105–128; BP diastolic 55–84
--- NOTE | 2020-04-12 07:09 | NUR ---
Nurse Notes: Report given to MELISA Cedeño. Patient has been NPO since midnight
[2020-04-12 07:11] LABS: ANION GAP 6 mmol/L (5-15); BLOOD UREA NITROGEN 3 mg/dL (7-18); CALCIUM 8.4 MG/DL (8.5-10.1); CARBON DIOXIDE 29 MMOL/L (21-32); CHLORIDE 108 MMOL/L (98-107); CREATININE 0.5 MG/DL (0.55-1.30); POTASSIUM 3.8 MMOL/L (3.5-5.1); SODIUM 143 MMOL/L (136-145)
--- NOTE | 2020-04-12 07:15 | NUR ---
NURSE NOTES: Received patient in bed. Awake, A/O x4. On room air. Patient denies pain at this time. IV in the Right AC, site is intact. Condom catheter in place. Bed low and locked, call light within reach.
[2020-04-12 07:19] LABS: BASOPHILS % (AUTO) 1.3 % (0.0-2.0); EOSINOPHILS % (AUTO) 1.1 % (0.0-3.0); HEMATOCRIT 39.8 % (42.0-52.0); HEMOGLOBIN 13.4 G/DL (14.2-18.0); LYMPHOCYTES % (AUTO) 44.9 % (20.0-45.0); MEAN CORPUSCULAR VOLUME 81 FL (80-99); MONOCYTES % (AUTO) 7.1 % (1.0-10.0); NEUTROPHILS % (AUTO) 45.7 % (45.0-75.0); PLATELET COUNT 134 K/UL (150-450); RED BLOOD COUNT 4.91 M/UL (4.70-6.10); RED CELL DISTRIBUTION WIDTH 12.3 % (11.6-14.8)
[2020-04-12] MEDS ORDERED: fentaNYL 100 mcg/2 mL IV PRN (07:45)
[2020-04-12] MEDS ORDERED: DiphenhydrAMINE 50mg/ml Inj IVP PRN (07:45)
[2020-04-12] MEDS ORDERED: Midazolam 2mg/2ml Inj IVP PRN (07:45)
[2020-04-12] MEDS ORDERED: Atropine Sulfate 0.4mg/ml inj IVP PRN (07:45)
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
[2020-04-12] MEDS: Docusate Sod/Senna tab ORAL SCH ×2 (08:18→18:16)
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
[2020-04-12] MEDS ORDERED: Lidocaine 1% MPF 10mg/ml 5ml ONE (09:00)
--- NOTE | 2020-04-12 09:00 | NUR ---
NURSE NOTES: Patient sent off the unit for GI procedure. VSS, denies pain. No apparent distress noted.
--- NOTE | 2020-04-12 09:12 | Pre-Procedure Note/Attestation ---
Pre-Procedure Note/Attestation Complete Prior to Procedure Planned Procedure: not applicable Procedure Narrative: egd Indications for Procedure Pre-Operative Diagnosis: gib Attestation I attest that I discussed the nature of the procedure; its benefits; risks and complications; and alternatives (and the risks and benefits of such alternatives ), prior to the procedure, with the patient (or the patient's legal car sales representative). I attest that, if there was a reasonable possibility of needing a blood transfusion, the patient (or the patient's legal car sales representative) was given the [facility] standardized written summary, pursuant to the [place] Blood Safety Act ([place] Health and Safety Code # 1645, as amended). I attest that I re-evaluated the patient just prior to the surgery and that there has been no change in the patient's H&P, except as documented below: Reginaldo Malhotra MD April 12, 2020 09:12
[2020-04-12] MEDS ORDERED: NS 500ML IVPB ONE (09:22)
--- NOTE | 2020-04-12 09:35 | Endoscopy Procedure Note ---
Endoscopy Procedure Note General Indication for Procedure: gib Procedures Performed: EGD Operative Findings/Diagnosis: gastritis Specimen: yes Pt Tolerated Procedure Well: Yes Estimated Blood Loss: none Anesthesia Anesthesiologist: corinne Anesthesia: MAC Inserted Devices Implant(s) used?: No GI Core Measures 50 yrs or older w/o bx or poly: Not Applicable 10yrs. F/U recommended: Not Applicable Reginaldo Malhotra MD April 12, 2020 09:35
--- NOTE | 2020-04-12 10:20 | NUR ---
NURSE NOTES: Patient returned to the unit from GI procedure. VSS.
--- NOTE | 2020-04-12 10:29 | NUR ---
CASE MANAGEMENT:REVIEW 04/12/20 SI: LGIB. UTI. QUADRIPLEGIA . GASTRITIS 97.8 84 19 111/84 97% ON RA PLT 134 IS:GI LAB: EGD NOW 1L NS BOLUS X1 IV ROCEPHIN QD PROTONIX PO QD HYTRIN NG QHS NEURONTIN PO QQID NORCO PO Q6HR.PRN : TO MED/SURG UNIT DCP: RETURN HOME PLAN: EGD TODAY
--- NOTE | 2020-04-12 10:31 | Immediate Post-Op Evaluation ---
Immediate Post-Op Evalulation Immediate Post-Op Evalulation Procedure: egd w/bx Date of Evaluation: April 12, 2020 Time of Evaluation: 09:50 IV Fluids: 100ml 0.9ns Blood Products: none Estimated Blood Loss: negligible Blood Pressure Systolic: 106 Blood Pressure Diastolic: 71 Pulse Rate: 53 Respiratory Rate: 18 O2 Sat by Pulse Oximetry: 100 Temperature (Fahrenheit): 97.7 Pain Score (1-10): 0 Nausea: No Vomiting: No Complications none Patient Status: awake, reacts, patent Hydration Status: adequate Drug: Yulia Varner MD April 12, 2020 10:31
--- NOTE | 2020-04-12 10:35 | 48 Hour Post Anesthesia Eval ---
Post Anesthesia Evaluation Procedure: egd w/bx Date of Evaluation: April 12, 2020 Time of Evaluation: 09:52 Blood Pressure Systolic: 109 0: 71 Pulse Rate: 54 Respiratory Rate: 18 Temperature (Fahrenheit): 97.7 O2 Sat by Pulse Oximetry: 100 Airway: patent Nausea: No Vomiting: No Pain Intensity: 0 Hydration Status: adequate Cardiopulmonary Status: stable Mental Status/LOC: patient returned to baseline Post-Anesthesia Complications: none Follow-up care needed: N/A Yulia Penny MD April 12, 2020 10:35
[2020-04-12] MEDS ORDERED: CEFEPIME-D2 GM/50 ML IVPB (10:50)
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
[2020-04-12] MEDS: cefTRIAXone 1 GM in D5W 50 ML IVPB SCH (12:35)
[2020-04-12] MEDS: HYDROcodone/Acetamin 5/325 tab ORAL PRN (12:35)
--- NOTE | 2020-04-12 13:28 | NUR ---
DISCHARGE PLANNING: PATIENT REFERRED TO [facility] T: [phone] F: [phone] CM WILL F/U Addendum: 04/12/20 at 1533 by ZABRINA ISRAEL LVN NOT ACCEPTED
--- NOTE | 2020-04-12 15:33 | NUR ---
DISCHARGE PLANNING: PATIENT REFERRED TO [facility] T: [phone] F: [phone] Addendum: 04/12/20 at 1534 by ZABRINA ISRAEL LVN NOT ACCEPTING
--- NOTE | 2020-04-12 15:34 | NUR ---
DISCHARGE PLANNING: PATIENT ACCEPTED TO [facility] (FOR MEDICATION FILL) C:[phone] T: [phone] F:[phone] HOME HEALTH WITH ( TO SERVICE IV MEDICATION) [facility] T:[phone] will see patient in am
--- NOTE | 2020-04-12 15:57 | NUR ---
*-* INSURANCE *-* UPDATED CLINICALS HAVE BEEN FAXED TO: [employer]#[phone] [facility]:[place] #[phone] FAX# [phone] REVIEWS/CLINICALS
--- NOTE | 2020-04-12 18:29 | Procedure Note ---
DATE OF PROCEDURE: 04/12/2020 SURGEON: Reginaldo Malhotra MD. PROCEDURE: Upper endoscopy with biopsy. ANESTHESIA: Per Dr. Amezquita. INSTRUMENT: Olympus adult flexible upper endoscope. INDICATION: Upper GI bleeding. REASON FOR PROCEDURE: The procedure, risks, benefits, and possible consequences, including hemorrhage, aspiration, perforation and infection, and alternative treatments, were explained to the patient/legal guardian by Dr. Reginaldo Malhotra and the patient/legal guardian understood and accepted these risks. DESCRIPTION OF PROCEDURE: After informed consent was obtained and the patient was adequately sedated, Olympus upper endoscope was advanced from mouth into the second portion of the duodenum and retroflexion was performed in the stomach. Patient had mild duodenitis. No evidence of an active upper GI bleeding. In the stomach, there was diffuse gastritis. Random biopsy from antrum was obtained to rule out H. pylori infection. Patient also had evidence of a small hiatal hernia without any esophagitis. At this time, the scope was retrieved. Procedure was terminated. SUMMARY OF FINDINGS: 1. Mild duodenitis. 2. Gastritis, status post biopsy. 3. Small hiatal hernia. RECOMMENDATIONS: 1. Follow up biopsy results and treat accordingly. 2. Resume diet. 3. Given hemoglobin of 13, we are going to hold off colonoscopy at this time. I want to thank Dr. Zhu for this kind referral. Reginaldo Malhotra M.D. DR: SHABNAM JOB#: [id number] CC: Liya Zhu M.D.; Fax#: [phone]
--- NOTE | 2020-04-12 19:10 | NUR ---
NURSE NOTES: Patient sent home with [facility]. Belongings list verified. ID band removed.
--- NOTE | 2020-04-13 14:12 | NUR ---
*-* NO DISCHARGED SUMMARY IN THE SYSTEM UNABLE TO SEND TO INSURANCE *-*
== END 2020-04-12 19:10 | disposition home health service (06) | DRG 254 ==
LOC: EDBD 08:30 → EMR 08:40 → EDBEDREQ 09:22 → 4E 09:58 → EDBEDREQ 20:33
PROC: 0DB78ZX Excision of Stomach, Pylorus, Via Natural or Artificial Opening Endoscopic, Diagnostic (ICD-10-PCS; principal; 2020-04-12 09:26)
DX: K64.4 Residual hemorrhoidal skin tags (principal); N39.0 Urinary tract infection, site not specified; G82.50 Quadriplegia, unspecified; K29.80 Duodenitis without bleeding; K29.70 Gastritis, unspecified, without bleeding; K44.9 Diaphragmatic hernia without obstruction or gangrene; M79.604 Pain in right leg; B96.89 Other specified bacterial agents as the cause of diseases classified elsewhere; W34.00XS Accidental discharge from unspecified firearms or gun, sequela; G89.29 Other chronic pain; M54.9 Dorsalgia, unspecified
CPT/HCPCS: 36415; 80048; 80053; 81003; 83690; 85025; 85610; 85730; 86850; 86900; 86901; 87086; 87181; 93971; 94003; 94150; 96361; 96365; 96375; 99285; C9399; J2405; J7030